=== PATIENT | female | born 2000 | race Hispanic/Latino ===

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

== ENCOUNTER 2022-01-19 09:50 | Emergency (ER) | payer OTHER ==
--- OUTSIDE RECORDS SUMMARY | 2022-01-19 09:57 | XMS REPORT | Continuity of Care Document ---
:[address] [facility] t Address [address] [place] [place] [address] Care Team Providers Name Role Phone Aron Quinones Primary Care Physician Alexei Gonzalez Attending Clinician ALEXEI ESCAMILLA Attending Clinician Unavailable Radha Cavazos MD Attending Clinician RADHA CAVAZOS Attending Clinician Unavailable Doctor Unassigned, [place] Attending Clinician Unavailable Pob, [facility] Attending Clinician Unavailable THIAGO HIDALGO Attending Clinician Unavailable Thiago Hidalgo PA-C Attending Clinician NATALIIA KIM Attending Clinician Unavailable Nurse, [facility] Attending Clinician Unavailable Nataliia Kim MD Attending Clinician 2, [facility] Attending Clinician Unavailable Kathia Stevenson Attending Clinician Pob1, [facility] Attending Clinician Unavailable Cleopatra Brock Attending Clinician CLEOPATRA VAUGHAN Attending Clinician Unavailable Lilliam Amanda MD Attending Clinician [phone] LILLIAM AMANDA Attending Clinician Unavailable Birgida Banda Attending Clinician Ultrasound, [facility] Attending Clinician Unavailable Garett GLYNN, Mirela Attending Clinician Yu [place] Attending Clinician Narciso SKY, Greer Attending Clinician Unavailable YU ORTEGA Attending Clinician Unavailable Lab, [facility] Attending Clinician Unavailable Paulie GLYNN, Catrina M Attending Clinician RADHA CAVAZOS Admitting Clinician Unavailable Radha Cavazos MD Admitting Clinician Nataliia Kim MD Admitting Clinician NATALIIA KIM Admitting Clinician Unavailable Lilliam Amanda MD Admitting Clinician [phone] LILLIAM AMANDA Admitting Clinician Unavailable THIAGO HIDALGO Admitting Clinician Unavailable Payers Payer Name Policy Type Policy Number Effective Date Expiration Date S ource Problems Condition Condition Condition Status Onset Resolution Last Treating Co mments Source Name Details Category Date Date Treatment Clinician Date Ganglion Ganglion Disease Active Overview: Un ada cyst of cyst of 9-23 [place] ity o f dorsum of dorsum of 00:00: [place] left wrist left wrist 00 note Me dical might be Branch different from the original. Added automatic ally from request for surgery [id number] Routine Routine Disease Active Univers 3-13 it y of [place] [facility] [place] Generalize Generalize Disease Active 2018-03 U oralers d anxiety d anxiety 1-15 ity of disorder disorder 00:00: [address] Branch Bipolar 1 Bipolar 1 Disease Active Uni vers disorder disorder 6-05 ity of 00:00: [address] Branch Depression Depression Disease Active U ion , , 3-19 ity of unspecif[place]specif[place] 00 Medical depression depression Br anch type type Allergies, Adverse Reactions, Alerts Allergy Allergy Status Severity Reaction(s) Onset Inactive Treating Comm ents Source Name Type Date Date Clinician NO KNOWN Drug Active Univers ALLERGIE Class ity of [facility] Social History Social Habit Start Date Stop Date Quantity Comments Source Exposure to 2021-12-30 2022-01-09 Not sure [facility] SARS-CoV-2 00:00:00 14:24:00 [facility] (event) Branch Alcohol intake 2022-01-09 2022-01-09 Current University of 00:00:00 00:00:00 non-drinker of [facility] alcohol (finding) [place] Tobacco Comment 2021-11-09 2021-11-09 denies smoke Univers ity of 00:00:00 00:00:[address] [facility] Tobacco use and 2021-11-09 2021-11-09 Smokeless tobacco Un iversity of exposure 00:00:00 00:00:[address] [facility] Sex Assigned At 2000 2002 Universit y of 00:00:00 00:00:00 [facility] Smoking Status Start Date Stop Date Source Never smoked tobacco [facility] [place] [facility] Medications Ordered Filled Start Stop Current Ordering Indication Dosage Frequency Signature Comments Components Source Medication Medication Date Date Medication? Clinician (SIG) Name Name lactated 2021-03 Yes 1000mL at 75 Univer s ringers IV 0-03 mL/hr, ity of infusion 21:00[place] 1[place] 00 IV Medical Infusion, Branch CONTINUOUS , Starting on Sun12/26/21 at 1600, Until Discontinu ed, Routine, PACU lactated 2021-03- 1000mL at 75 Unive rs ringers IV 0-03 10-04 mL/hr, ity of infusion 21:00: 00:20 1,000 mL, [place] 1,000 mL 00 :30 IV Medical Infusion, Branch CONTINUOUS , Starting on Sun12/26/21 at 1600, Until Sun12/26/21 at 1920, Routine, PACU FENTanyl PF 2021-03 Yes 25ug 25 mcg, Uni vers (SUBLIMAZE 0-03 Slow IV ity of (PF)) 20:55: Push, [place] injection 33 Q5MIN PRN, Medi rain 25 mcg 4 doses, Branch Starting on Sun12/26/21 at 1555, Until Discontinu ed, Routine, Pain (scale 4-6), PACU ondansetron 2021-03 Yes 4mg 4 mg, Slow Univers (ZOFRAN 0-03 IV Push, ity of (PF)) 20:55: PRN, 1 [place] injection 4 33 dose, Medical mg Starting Branch on Sun12/26/21 at 1555, Until Discontinu ed, Routine, Nausea and Vomiting (N/V), PACU FENTanyl PF 2021-03- No 25ug 25 mcg, Un ada (SUBLIMAZE 012-27 Slow IV ity o f (PF)) 20:55: 00:20 Push, [place] injection 33 :30 Q5MIN PRN, Medi rain 25 mcg 4 doses, Branch Starting on Sun12/26/21 at 1555, Until Sun12/26/21 at 1920, Routine, Pain (scale 4-6), PACU ondansetron 2021-03- No 4mg 4 mg, Slow Univers (ZOFRAN 012-27 IV Push, ity of (PF)) 20:55: 00:20 PRN, 1 [place] injection 4 33 :30 dose, Medical mg Starting Branch on Sun12/26/21 at 1555, Until Sun12/26/21 at 1920, Routine, Nausea and Vomiting (N/V), PACU bupivacaine 2021-03- No PRN, Unive rs (preserv 012-26 Starting ity of free) 20:31: 20:42 on [facility] (SENSORCAIN 00 :34 12/26/21 at [place] dical E MPF) 0.25 1531, Branch % (2.5 Until Mon mg/mL) 12/26/21 at injection 1542, Routine, Intra-op sodium 2021-03- No PRN, Univers chloride 012-26 Starting ity of 0.9 % 20:19: 20:42 on [facility] irrigation 00 :34 12/26/21 at Med ical solution 1519, Branch Until Sun12/26/21 at 1542, Intra-op BIOTIN ORAL 2021-03 Yes Take by Uni vers 0-03 mouth. ity of 17:20: [address] ZINC ORAL 2021-03 Yes Take by Unive rs 0-03 mouth. ity of 17:20: [address] BIOTIN ORAL 2021-03 Yes Take by Uni vers 0-03 mouth. ity of 17:20: [address] ZINC ORAL 2021-03 Yes Take by Unive rs 0-03 mouth. ity of 17:20: [address] BIOTIN ORAL 2021-03 Yes Take by Uni vers 0-03 mouth. ity of 17:20: [address] ZINC ORAL 2021-03 Yes Take by Unive rs 0-03 mouth. ity of 17:20: [address] BIOTIN ORAL 2021-03 Yes Take by Un ada 0-03 mouth. ity of 17:20: [address] ZINC ORAL 2021-03 Yes Take by Unive rs 0-03 mouth. ity of 17:20: [address] BIOTIN ORAL 2021-03 Yes Take by Uni vers 0-03 mouth. ity of 17:20: [address] ZINC ORAL 2021-03 Yes Take by Unive rs 0-03 mouth. ity of 17:20: [address] BIOTIN ORAL 2021-03 Yes Take by Uni vers 0-03 mouth. ity of 17:20: [address] ZINC ORAL 2021-03 Yes Take by Unive rs 0-03 mouth. ity of 17:20: [address] lactated 2021-03- No 1000mL at 42 Unive rs ringers IV 0-03 10-03 mL/hr, ity of infusion 16:45: 17:02 1,000 mL, [place] 1,000 mL 00 :00 IV Medical Infusion, Branch ONCE, 1 dose, On Sun12/26/21 at 1145, Routine, DSU Pre-op lactated 2021-03- No 1000mL at 42 Unive rs ringers IV 0-03 10-03 mL/hr, ity of infusion 16:45: 17:02 1,000 mL, [place] 1,000 mL 00 :00 IV Medical Infusion, Branch ONCE, 1 dose, On Sun12/26/21 at 1145, Routine, DSU Pre-op traMADoL 50 2021-03- Yes [id number] 50mg Take 1 Uni vers mg tablet 0-03 10-11 tablet by ity of 00:00: 04:59 mouth [place] 00 :00 every 6 Medical (six) Branch hours as needed for Pain (scale 4-6) or Pain (scale 7-10) for up to 7 days. Indication s: acute pain traMADoL 50 2021-03- Yes [id number] 50mg Take 1 Uni vers mg tablet 0-03 10-11 tablet by ity of 00:00: 04:59 mouth [place] 00 :00 every 6 Medical (six) Branch hours as needed for Pain (scale 4-6) or Pain (scale 7-10) for up to 7 days. Indication s: acute pain traMADoL 50 2021-03- Yes [id number] 50mg Take 1 Uni vers mg tablet 0-03 10-11 tablet by ity of 00:00: 04:59 mouth [place] 00 :00 every 6 Medical (six) Branch hours as needed for Pain (scale 4-6) or Pain (scale 7-10) for up to 7 days. Indication s: acute pain BIOTIN ORAL 0 Yes Take by Uni vers 9-28 mouth. ity of 16:21: [place] [address] Medical Branch ZINC ORAL 0 Yes Take by Unive rs 9-28 mouth. ity of 16:21: [place] [address] Medical Branch metroNIDAZO 2021-0 Yes [id number] 500mg Take 1 Univers LE 500 mg 8-17 tablet by ity o f tablet 00:00: mouth [place] 00 every 12 Medical (twelve) Branch hours. metroNIDAZO 2021-0 Yes [id number] 500mg Take 1 Univers LE 500 mg 8-17 tablet by ity o f tablet 00:00: mouth [place] 00 every 12 Medical (twelve) Branch hours. metroNIDAZO 2021-0 Yes [id number] 500mg Take 1 Univers LE 500 mg 8-17 tablet by ity o f tablet 00:00: mouth [place] 00 every 12 Medical (twelve) Branch hours. metroNIDAZO 2021-0 Yes [id number] 500mg Take 1 Univers LE 500 mg 8-17 tablet by ity o f tablet 00:00: mouth [place] 00 every 12 Medical (twelve) Branch hours. metroNIDAZO 2021-0 Yes [id number] 500mg Take 1 Univers LE 500 mg 8-17 tablet by ity o f tablet 00:00: mouth [place] 00 every 12 Medical (twelve) Branch hours. metroNIDAZO 2021-0 Yes [id number] 500mg Take 1 Univers LE 500 mg 8-17 tablet by ity o f tablet 00:00: mouth [place] 00 every 12 Medical (twelve) Branch hours. metroNIDAZO 2021-0 Yes [id number] 500mg Take 1 Univers LE 500 mg 8-17 tablet by ity o f tablet 00:00: mouth [place] 00 every 12 Medical (twelve) Branch hours. metroNIDAZO 2-0 Yes [id number] 500mg Take 1 Univers LE 500 mg 8-17 tablet by ity o f tablet 00:00: mouth [place] 00 every 12 Medical (twelve) Branch hours. metroNIDAZO 2021-0 Yes [id number] 500mg Take 1 Univers LE 500 mg 8-17 tablet by ity o f tablet 00:00: mouth [place] 00 every 12 Medical (twelve) Branch hours. metroNIDAZO 2021-0 Yes [id number] 500mg Take 1 Univers LE 500 mg 8-17 tablet by ity o f tablet 00:00: mouth [place] 00 every 12 Medical (twelve) Branch hours. metroNIDAZO 2021-0 Yes [id number] 500mg Take 1 Univers LE 500 mg 8-17 tablet by ity o f tablet 00:00: mouth [place] 00 every 12 Medical (twelve) Branch hours. metroNIDAZO 2021-0 Yes [id number] 500mg Take 1 Univers LE 500 mg 8-17 tablet by ity o f tablet 00:00: mouth [place] 00 every 12 Medical (twelve) Branch hours. metroNIDAZO 2021-0 2022- No [id number] 500mg Take 1 Univers LE 500 mg 6-23 08-17 tablet by ity of tablet 00:00: 00:00 mouth [place] 00 :00 every 12 Medical (twelve) Branch hours. metroNIDAZO 2021-0 2022- No [id number] 500mg Take 1 Univers LE 500 mg 6-23 08-17 tablet by ity of tablet 00:00: 00:00 mouth [place] 00 :00 every 12 Medical (twelve) Branch hours. norgestimat 2021-0 Yes [id number] 1{tbl} Take 1 Univers e-ethinyl 5-16 tablet by ity o f estradioL 00:00: mouth [place] (ESTARYLLA) 00 daily. Medica l 0.25-35 Branch mg-mcg per tablet norgestimat 2021-0 Yes [id number] 1{tbl} Take 1 Univers e-ethinyl 5-16 tablet by ity o f estradioL 00:00: mouth [place] (ESTARYLLA) 00 daily. Medica l 0.25-35 Branch mg-mcg per tablet norgestimat 2021-0 Yes [id number] 1{tbl} Take 1 Univers e-ethinyl 5-16 tablet by ity o f estradioL 00:00: mouth [place] (ESTARYLLA) 00 daily. Medica l 0.25-35 Branch mg-mcg per tablet norgestimat Yes [id number] 1{tbl} Take 1 Univers e-ethinyl 5-16 tablet by ity o f estradioL 00:00: mouth [place] (ESTARYLLA) 00 daily. Medica l 0.25-35 Branch mg-mcg per tablet norgestimat Yes [id number] 1{tbl} Take 1 Univers e-ethinyl 5-16 tablet by ity o f estradioL 00:00: mouth [place] (ESTARYLLA) 00 daily. Medica l 0.25-35 Branch mg-mcg per tablet norgestimat Yes [id number] 1{tbl} Take 1 Univers e-ethinyl 5-16 tablet by ity o f estradioL 00:00: mouth [place] (ESTARYLLA) 00 daily. Medica l 0.25-35 Branch mg-mcg per tablet norgestimat 2021- Yes [id number] 1{tbl} Take 1 Univers e-ethinyl 5-16 tablet by ity o f estradioL 00:00: mouth [place] (ESTARYLLA) 00 daily. Medica l 0.25-35 Branch mg-mcg per tablet norgestimat Yes [id number] 1{tbl} Take 1 Univers e-ethinyl 5-16 tablet by ity o f estradioL 00:00: mouth [place] (ESTARYLLA) 00 daily. Medica l 0.25-35 Branch mg-mcg per tablet norgestimat 2021-0 Yes [id number] 1{tbl} Take 1 Univers e-ethinyl 5-16 tablet by ity o f estradioL 00:00: mouth [place] (ESTARYLLA) 00 daily. Medica l 0.25-35 Branch mg-mcg per tablet norgestimat Yes [id number] 1{tbl} Take 1 Univers e-ethinyl 5-16 tablet by ity o f estradioL 00:00: mouth [place] (ESTARYLLA) 00 daily. Medica l 0.25-35 Branch mg-mcg per tablet norgestimat 2022-0 Yes [id number] 1{tbl} Take 1 Univers e-ethinyl 5-16 tablet by ity o f estradioL 00:00: mouth [place] (ESTARYLLA) 00 daily. Medica l 0.25-35 Branch mg-mcg per tablet norgestimat 2021-0 Yes [id number] 1{tbl} Take 1 Univers e-ethinyl 5-16 tablet by ity o f estradioL 00:00: mouth [place] (ESTARYLLA) 00 daily. Medica l 0.25-35 Branch mg-mcg per tablet metroNIDAZO 2-0 202- No [id number] 500mg Take 1 Univers LE 500 mg 4-26 08-17 tablet by ity of tablet 00:00: 00:00 mouth [place] 00 :00 every 12 Medical (twelve) Branch hours. metroNIDAZO 2-0 2021- No [id number] 500mg Take 1 Univers LE 500 mg 4-26 -17 tablet by ity of tablet 00:00: 00:00 mouth [place] 00 :00 every 12 Medical (twelve) Branch hours. BIOTIN ORAL 2022-0 Yes Take by Uni vers 4-25 mouth. ity of 08:19: [address] ZINC ORAL 2022-0 Yes Take by Unive rs 4-25 mouth. ity of 08:19: [address] BIOTIN ORAL 2022-0 Yes Take by Uni vers 4-25 mouth. ity of 08:19: [address] ZINC ORAL 2022-0 Yes Take by Unive rs 4-25 mouth. ity of 08:19: [address] BIOTIN ORAL 2022-0 Yes Take by Uni vers 4-25 mouth. ity of 08:19: [address] ZINC ORAL 2022-0 Yes Take by Unive rs 4-25 mouth. ity of 08:19: [address] BIOTIN ORAL 2022-0 Yes Take by Uni vers 4-25 mouth. ity of 08:19: [address] ZINC ORAL 2022-0 Yes Take by Unive rs 4-25 mouth. ity of 08:19: [address] BIOTIN ORAL 2022-0 Yes Take by Uni vers 4-25 mouth. ity of 08:19: [address] ZINC ORAL 2022-0 Yes Take by Unive rs 4-25 mouth. ity of 08:19: [place] 34 Medical Branch metroNIDAZO 2022-0 2- No [id number] 500mg Take 1 Univers LE 500 mg 3-25 08-17 tablet by ity of tablet 00:00: 00:00 mouth [place] 00 :00 every 12 Medical (twelve) Branch hours. metroNIDAZO 2022-0 2022- No [id number] 500mg Take 1 Univers LE 500 mg 3-25 08-17 tablet by ity of tablet 00:00: 00:00 mouth [place] 00 :00 every 12 Medical (twelve) Branch hours. clotrimazol 2020-0 Yes [id number] Apply to Univers e-betametha 9-29 area(s) 2 ity of sone cream 00:00: (two) [place] 00 times Medical daily. Branch clotrimazol 2020-0 Yes [id number] Apply to Univers e-betametha 9-29 area(s) 2 ity of sone cream 00:00: (two) [place] 00 times Medical daily. Branch clotrimazol 2020-0 Yes [id number] Apply to Univers e-betametha 9-29 area(s) 2 ity of sone cream 00:00: (two) [place] 00 times Medical daily. Branch clotrimazol 2020-0 Yes [id number] Apply to Univers e-betametha 9-29 area(s) 2 ity of sone cream 00:00: (two) [place] 00 times Medical daily. Branch clotrimazol 2020-0 Yes [id number] Apply to Univers e-betametha 9-29 area(s) 2 ity of sone cream 00:00: (two) [place] 00 times Medical daily. Branch clotrimazol 2020-0 Yes [id number] Apply to Univers e-betametha 9-29 area(s) 2 ity of sone cream 00:00: (two) [place] 00 times Medical daily. Branch clotrimazol 2020-0 Yes [id number] Apply to Univers e-betametha 9-29 area(s) 2 ity of sone cream 00:00: (two) [place] 00 times Medical daily. Branch clotrimazol 2020-0 Yes [id number] Apply to Univers e-betametha 9-29 area(s) 2 ity of sone cream 00:00: (two) [place] 00 times Medical daily. Branch clotrimazol 2020-0 Yes [id number] Apply to Univers e-betametha 9-29 area(s) 2 ity of sone cream 00:00: (two) [place] 00 times Medical daily. Branch clotrimazol 2020-0 Yes [id number] Apply to Univers e-betametha 9-29 area(s) 2 ity of sone cream 00:00: (two) [place] 00 times Medical daily. Branch clotrimazol 2020-0 Yes [id number] Apply to Univers e-betametha 9-29 area(s) 2 ity of sone cream 00:00: (two) [place] 00 times Medical daily. Branch clotrimazol 2020-0 Yes [id number] Apply to Univers e-betametha 9-29 area(s) 2 ity of sone cream 00:00: (two) [place] 00 times Medical daily. Branch 2020-0 Yes [id number] 1{tbl} Take 1 Univers vitamin 1-31 102 tablet by ity of w/FA tablet 00:00: mouth [place] 00 daily. Medical Branch docusate 2020-0 Yes [id number] 240mg Take 1 Univers calcium 240 1-31 102 capsule by it y of mg capsule 00:00: mouth once [place] 00 daily as Medical needed for Branch Constipati on. ferrous 2020-0 Yes [id number] 325mg Take 1 Univers sulfate 325 1-31 102 tablet by ity of mg (65 mg 00:00: mouth 2 [place] iron) 00 (two) Medical tablet times Branch daily. ibuprofen 2020-0 Yes [id number] 600mg Take 1 Univers 600 mg 1-31 102 tablet by ity of tablet 00:00: mouth [place] 00 every 6 Medical (six) Branch hours as needed (Pain). Take with food or milk. 2020-0 Yes [id number] 1{tbl} Take 1 Univers vitamin 1-31 102 tablet by ity of w/FA tablet 00:00: mouth [place] 00 daily. Medical Branch docusate 2020-0 Yes [id number] 240mg Take 1 Univers calcium 240 1-31 102 capsule by it y of mg capsule 00:00: mouth once [place] 00 daily as Medical needed for Branch Constipati on. ferrous 2020-0 Yes [id number] 325mg Take 1 Univers sulfate 325 1-31 102 tablet by ity of mg (65 mg 00:00: mouth 2 [place] iron) 00 (two) Medical tablet times Branch daily. ibuprofen 2020-0 Yes [id number] 600mg Take 1 Univers 600 mg 1-31 102 tablet by ity of tablet 00:00: mouth [place] 00 every 6 Medical (six) Branch hours as needed (Pain). Take with food or milk. 2020-0 Yes [id number] 1{tbl} Take 1 Univers vitamin 1-31 102 tablet by ity of w/FA tablet 00:00: mouth [place] 00 daily. Medical Branch docusate 2020-0 Yes [id number] 240mg Take 1 Univers calcium 240 1-31 102 capsule by it y of mg capsule 00:00: mouth once [place] 00 daily as Medical needed for Branch Constipati on. ferrous 2020-0 Yes [id number] 325mg Take 1 Univers sulfate 325 1-31 102 tablet by ity of mg (65 mg 00:00: mouth 2 [place] iron) 00 (two) Medical tablet times Branch daily. ibuprofen 2020-0 Yes [id number] 600mg Take 1 Univers 600 mg 1-31 102 tablet by ity of tablet 00:00: mouth [place] 00 every 6 Medical (six) Branch hours as needed (Pain). Take with food or milk. 2020-0 Yes [id number] 1{tbl} Take 1 Univers vitamin 1-31 102 tablet by ity of w/FA tablet 00:00: mouth [place] 00 daily. Medical Branch docusate 2020-0 Yes [id number] 240mg Take 1 Univers calcium 240 1-31 102 capsule by it y of mg capsule 00:00: mouth once [place] 00 daily as Medical needed for Branch Constipati on. ferrous 2020-0 Yes [id number] 325mg Take 1 Univers sulfate 325 1-31 102 tablet by ity of mg (65 mg 00:00: mouth 2 [place] iron) 00 (two) Medical tablet times Branch daily. ibuprofen 2020-0 Yes [id number] 600mg Take 1 Univers 600 mg 1-31 102 tablet by ity of tablet 00:00: mouth [place] 00 every 6 Medical (six) Branch hours as needed (Pain). Take with food or milk. 2020-0 Yes [id number] 1{tbl} Take 1 Univers vitamin 1-31 102 tablet by ity of w/FA tablet 00:00: mouth [place] 00 daily. Medical Branch docusate 2020-0 Yes [id number] 240mg Take 1 Univers calcium 240 1-31 102 capsule by it y of mg capsule 00:00: mouth once [place] 00 daily as Medical needed for Branch Constipati on. ferrous 2020-0 Yes [id number] 325mg Take 1 Univers sulfate 325 1-31 102 tablet by ity of mg (65 mg 00:00: mouth 2 [place] iron) 00 (two) Medical tablet times Branch daily. ibuprofen 2020-0 Yes [id number] 600mg Take 1 Univers 600 mg 1-31 102 tablet by ity of tablet 00:00: mouth [place] 00 every 6 Medical (six) Branch hours as needed (Pain). Take with food or milk. 2020-0 Yes [id number] 1{tbl} Take 1 Univers vitamin 1-31 102 tablet by ity of w/FA tablet 00:00: mouth [place] 00 daily. Medical Branch docusate 2020-0 Yes [id number] 240mg Take 1 Univers calcium 240 1-31 102 capsule by it y of mg capsule 00:00: mouth once [place] 00 daily as Medical needed for Branch Constipati on. ferrous 2020-0 Yes [id number] 325mg Take 1 Univers sulfate 325 1-31 102 tablet by ity of mg (65 mg 00:00: mouth 2 [place] iron) 00 (two) Medical tablet times Branch daily. ibuprofen 2020-0 Yes [id number] 600mg Take 1 Univers 600 mg 1-31 102 tablet by ity of tablet 00:00: mouth [place] 00 every 6 Medical (six) Branch hours as needed (Pain). Take with food or milk. 2020-0 Yes [id number] 1{tbl} Take 1 Univers vitamin 1-31 102 tablet by ity of w/FA tablet 00:00: mouth [place] 00 daily. Medical Branch docusate 2020-0 Yes [id number] 240mg Take 1 Univers calcium 240 1-31 102 capsule by it y of mg capsule 00:00: mouth once [place] 00 daily as Medical needed for Branch Constipati on. ferrous 2020-0 Yes [id number] 325mg Take 1 Univers sulfate 325 1-31 102 tablet by ity of mg (65 mg 00:00: mouth 2 [place] iron) 00 (two) Medical tablet times Branch daily. ibuprofen 2020-0 Yes [id number] 600mg Take 1 Univers 600 mg 1-31 102 tablet by ity of tablet 00:00: mouth [place] 00 every 6 Medical (six) Branch hours as needed (Pain). Take with food or milk. 2020-0 Yes [id number] 1{tbl} Take 1 Univers vitamin 1-31 102 tablet by ity of w/FA tablet 00:00: mouth [place] 00 daily. Medical Branch docusate 2020-0 Yes [id number] 240mg Take 1 Univers calcium 240 1-31 102 capsule by it y of mg capsule 00:00: mouth once [place] 00 daily as Medical needed for Branch Constipati on. ferrous 2020-0 Yes [id number] 325mg Take 1 Univers sulfate 325 1-31 102 tablet by ity of mg (65 mg 00:00: mouth 2 [place] iron) 00 (two) Medical tablet times Branch daily. ibuprofen 2020-0 Yes [id number] 600mg Take 1 Univers 600 mg 1-31 102 tablet by ity of tablet 00:00: mouth [place] 00 every 6 Medical (six) Branch hours as needed (Pain). Take with food or milk. 2020-0 Yes [id number] 1{tbl} Take 1 Univers vitamin 1-31 102 tablet by ity of w/FA tablet 00:00: mouth [place] 00 daily. Medical Branch docusate 2020-0 Yes [id number] 240mg Take 1 Univers calcium 240 1-31 102 capsule by it y of mg capsule 00:00: mouth once [place] 00 daily as Medical needed for Branch Constipati on. ferrous 2020-0 Yes [id number] 325mg Take 1 Univers sulfate 325 1-31 102 tablet by ity of mg (65 mg 00:00: mouth 2 [place] iron) 00 (two) Medical tablet times Branch daily. ibuprofen 2020-0 Yes [id number] 600mg Take 1 Univers 600 mg 1-31 102 tablet by ity of tablet 00:00: mouth [place] 00 every 6 Medical (six) Branch hours as needed (Pain). Take with food or milk. 2020-0 Yes [id number] 1{tbl} Take 1 Univers vitamin 1-31 102 tablet by ity of w/FA tablet 00:00: mouth [place] 00 daily. Medical Branch docusate 2020-0 Yes [id number] 240mg Take 1 Univers calcium 240 1-31 102 capsule by it y of mg capsule 00:00: mouth once [place] 00 daily as Medical needed for Branch Constipati on. ferrous 2020-0 Yes [id number] 325mg Take 1 Univers sulfate 325 1-31 102 tablet by ity of mg (65 mg 00:00: mouth 2 [place] iron) 00 (two) Medical tablet times Branch daily. ibuprofen 2020-0 Yes [id number] 600mg Take 1 Univers 600 mg 1-31 102 tablet by ity of tablet 00:00: mouth [place] 00 every 6 Medical (six) Branch hours as needed (Pain). Take with food or milk. 2020-0 Yes [id number] 1{tbl} Take 1 Univers vitamin 1-31 102 tablet by ity of w/FA tablet 00:00: mouth [place] 00 daily. Medical Branch docusate 2020-0 Yes [id number] 240mg Take 1 Univers calcium 240 1-31 102 capsule by it y of mg capsule 00:00: mouth once [place] 00 daily as Medical needed for Branch Constipati on. ferrous 2020-0 Yes [id number] 325mg Take 1 Univers sulfate 325 1-31 102 tablet by ity of mg (65 mg 00:00: mouth 2 [place] iron) 00 (two) Medical tablet times Branch daily. ibuprofen 2020-0 Yes [id number] 600mg Take 1 Univers 600 mg 1-31 102 tablet by ity of tablet 00:00: mouth [place] 00 every 6 Medical (six) Branch hours as needed (Pain). Take with food or milk. 2020-0 Yes [id number] 1{tbl} Take 1 Univers vitamin 1-31 102 tablet by ity of w/FA tablet 00:00: mouth [place] 00 daily. Medical Branch docusate 2020-0 Yes [id number] 240mg Take 1 Univers calcium 240 1-31 102 capsule by it y of mg capsule 00:00: mouth once [place] 00 daily as Medical needed for Branch Constipati on. ferrous 2020-0 Yes [id number] 325mg Take 1 Univers sulfate 325 1-31 102 tablet by ity of mg (65 mg 00:00: mouth 2 [place] iron) 00 (two) Medical tablet times Branch daily. ibuprofen 2020-0 Yes [id number] 600mg Take 1 Univers 600 mg 1-31 102 tablet by ity of tablet 00:00: mouth [place] 00 every 6 Medical (six) Branch hours as needed (Pain). Take with food or milk. Vital Signs Vital Name Observation Time Observation Value Comments Source Body height 2022-01-09 19:47:00 160 cm [facility] [place] [facility] Body weight 2022-01-09 19:47:00 58.514 kg [facility] [place] [facility] BMI 2022-01-09 19:47:00 22.85 kg/m2 [facility] [place] [facility] Systolic blood 2021-12-26 21:28:00 146 mm[Hg] [facility] [place] [facility] Diastolic blood 2021-12-26 21:28:00 70 mm[Hg] [facility]ive rsity [facility] [place] [facility] Heart rate 2021-12-26 21:28:00 66 /min [facility] [place] [facility] Respiratory rate 2021-12-26 21:28:00 20 /min [facility] [place] [facility] Oxygen saturation in 2021-12-26 21:28:00 100 /min [facility] of Arterial blood by [place] [employer] rain Pulse oximetry Branch Body temperature 2021-12-26 20:43:00 36.33 Mariel [facility] [place] [facility] Body height 2021-12-19 16:28:00 160 cm [facility] [place] [facility] Body weight 2021-12-19 16:28:00 56.7 kg [facility] [place] [facility] BMI 2021-12-19 16:28:00 22.15 kg/m2 [facility] [place] [facility] Heart rate 2021-12-26 21:07:00 66 /min [facility] [place] [facility] Respiratory rate 2021-12-26 21:07:00 20 /min [facility] [place] [facility] Oxygen saturation in 2021-12-26 21:07:00 100 /min [facility] Arterial blood by [place] [employer] rain Pulse oximetry Branch Systolic blood 2021-12-26 21:03:00 131 mm[Hg] [facility] [place] [facility] Diastolic blood 2021-12-26 21:03:00 69 mm[Hg] [facility] [place] [facility] Body temperature 2021-12-26 20:43:00 36.33 Mariel [facility] [place] [facility] Body height 2021-12-19 16:28:00 160 cm [facility] [place] [facility] Body weight 2021-12-19 16:28:00 56.7 kg Universi [facility] BMI 2021-12-19 16:28:00 22.15 kg/m2 [facility] Body height 2021-12-15 18:01:00 160 cm [facility] Systolic blood 2021-11-09 15:45:00 112 mm[Hg] Univer sity of pressure [facility] Diastolic blood 2021-11-09 15:45:00 71 mm[Hg] Unive rsity of pressure [facility] Heart rate 2021-11-09 15:45:00 86 /min [facility] Body temperature 2021-11-09 15:45:00 37.06 Mariel [facility] Respiratory rate 2021-11-09 15:45:00 18 /min [facility] Body height 2021-11-09 15:45:00 160 cm [facility] Body weight 2021-11-09 15:45:00 56.7 kg [facility] BMI 2021-11-09 15:45:00 22.14 kg/m2 [facility] Procedures Procedure Date / Time Performed Performing Clinician Sourc e GANGLION EXCISION 2021-12-26 19:47:00 Radha Cavazos [facility] POCT TEST 2021-12-26 16:57:00 Toy Sinclair [facility] POCT TEST 2021-12-26 16:57:00 Toy Sinclair [facility] DAY SURGERY - ADC 2021-12-26 05:01:00 Doctor Unassigned, No [facility] Branch CONSENT/REFUSAL FOR 2021-12-23 15:24:42 Doctor Unassigned, No [facility] [place] DI[facility] AND Name Medical Branch TREATMENT CONSENT/REFUSAL FOR 2021-12-23 15:24:42 Doctor Unassigned, No [facility] Name [facility] Branch TREATMENT ASSIGNMENT OF BENEFITS 2021-12-23 15:24:19 Doctor Unassigned, No [facility] Medical Branch ASSIGNMENT OF BENEFITS 2021-12-23 15:24:19 Doctor Unassigned, No [facility] EXTERNAL PROVIDER 2021-12-20 05:01:00 Doctor Unassigned, No Univ ersity [facility] RECORDS Name Medical Branch EXTERNAL PROVIDER 2021-12-20 05:01:00 Doctor Unassigned, No [facility] REC[facility]DS Name [facility] Encounters Start End Encounter Admission Attending Care Care Encounter Source Date/Time Date/Time Type Type Clinicians Facility Department ID 2022-01-09 2022-01-09 Office [facility] [id number] Univers 14:15:00 14:30:00 Visit Alexei ABRAHAM 350.1.13.10 it y of [place] 4.2.7.2.686 Esa as NACHO?BLEA [phone] Nc abhayvannesa [address] OFFICE [facility] 2022-01-09 2022-01-09 [facility] [id number] Univers 14:15:00 14:15:00 ALEXEI lowery [facility] 2022-01-09 2022-01-09 Letter [facility] [id number] Univers 00:00:00 00:00:00 (Out) Radha Lee RUN 350.1.13.10 it y of [place] 4.2.7.2.686 Esa as NACHO?BLEA [id number] Nc abhay[address] OFFICE [facility] 2021-12-26 2021-12-26 Out[facility] SOR [id number] Univers 11:44:00 16:28:00 RADHA itedvin [facility] 2021-12-26 2021-12-26 [facility] 1.2.840.114 [id number] Univers 11:44:00 16:28:00 Encounter Radha SANDOVAL 350.1.13.10 ity of [place] [facility] 4.2.7.2.686 [place] SURGICAL [phone] [facility] [address] [place] 2021-12-26 2021-12-26 Surgery [facility] 1.2.846.497 [id number] Univers 14:55:00 16:07:00 Radha SANDOVAL 350.1.13.10 i ty of [place] [facility] 4.2.7.2.[place]ICAL [id number] [facility] [address] [place] 2021-12-26 2021-12-26 Orders Doctor MARCOS 1.2.840.114 [id number] Univers 00:00:00 00:00:00 Only Unassigned, SUSHANT 350.1.13.10 [facility] 4.2.7.2.686 Esa as [phone] [address] 2021-12-23 2021-12-23 Features Editor Cassidy, [facility] Main [facility] 1.2.8 40.114 [id number] Univers 09:30:00 09:45:00 Visit Dirk Radha Jesus JAIME 350.1.13.10 ity of [place] 4.2.7.2.686 [place] TAWNYA [id number] Nc dicvannesa [address] 2021-12-23 2021-12-23 [facility] [id number] Univers 09:30:00 09:30:00 [facility] 2021-12-16 2021-12-16 Prep For [facility] 1.2.840.114 [id number] Univers 00:00:00 00:00:00 Surgery Radha Lee HEALTH 350.1.13.10 it y of [place] 4.2.7.2.686 Esa as NACHO?BLEA [phone] Nc dicvannesa [facility] [address] [facility] OFFICE [facility] 2021-12-15 2021-12-15 Outpatient R FRANCINE [facility] [id number] Univers 13:15:00 14:01:10 ALEXEI ity [facility] 2021-12-15 2021-12-15 Office [facility] 1.2.840.114 [id number] Univers 13:15:00 14:01:10 Visit Alexeishani ABRAHAM 350.1.13.10 it y of [place] 4.2.7.2.686 Esa as NACHO?BLEA [phone] Nc dicvannesa [address] OFFICE [facility] 2021-11-09 2021-11-09 Outpatient R ROCKY [facility] [id number] Univers 10:30:00 11:36:16 THIAGO lowery [facility] 2021-11-09 2021-11-09 Office [facility] [id number] Univers 10:30:00 11:36:16 Visit Thiago SANDOVAL 350.1.13.10 i ty of [place] 4.2.7.2.686 [place] PROFESSIO [phone] [address] 2021-11-09 2021-11-09 Outpatient R ROCKY [facility] [id number] Univers 10:30:00 10:30:00 THIAGO lowery [facility] 2021-11-09 2021-11-09 Orders Doctor MARCOS 1.2.840.114 [id number] Univers 00:00:00 00:00:00 Only Unassigned, SUSHANT 350.1.13.10 ity of [facility] 4.2.7.2.686 Esa as [phone] [address] 2021-09-15 2021-09-15 Case [facility] 1.2.211.266 [id number] Univers 00:00:00 00:00:00 Management Thiago SANDOVAL 350.1.13.10 ity of [place] 4.2.7.2.686 [place] PROFESS[place] [phone] [address] 2021-09-14 2021-09-14 Office [facility] [id number] [id number] Univers 10:30:00 10:51:47 Visit Thiago SANDOVAL 350.1.13.10 i ty of [place] 4.2.7.2.[place] [phone] [address] 2021-09-14 2021-09-14 Outpatient Benjamin HIDALGO [facility] [id number] Univers 10:30:00 10:51:47 THIAGO lowery [facility] 2021-09-14 2021-09-14 Outpatient R ROCKY [facility] [id number] Univers 10:30:00 10:30:00 THIAGO lowery [facility] 2021-08-08 2021-08-08 Outpatient Benjamin HIDALGO [facility] [id number] Univers 09:00:00 09:32:11 THIAGO lowery [facility] 2021-08-08 2021-08-08 Office [facility] [id number] Univers 09:00:00 09:32:11 Visit Thiago SANDOVAL 350.1.13.10 i ty of [place] [facility] 4.2.7.2.686 [place] [phone] Nc dical NAL [address] [place] [address] 2021-07-26 2021-07-26 Refill [facility] 1.2.760.952 [id number] Univers 00:00:00 00:00:00 Thiago FERMINKENYETTA 350.1.13.10 i ty of [place] 4.2.7.2.[place] PROFESS[place] [phone] Nc dical NAL [address] [place] [address] 2021-07-19 2021-07-19 Case [facility] 1.2.322.019 [id number] Univers 00:00:00 00:00:00 Management Thiago JENYKENYETTA 350.1.13.10 ity of [place] [facility] 4.2.7.2.686 [place] [phone] Nc dical NAL [address] [place] [address] 2021-07-18 2021-07-18 Office [facility] 1.2.528.279 [id number] Univers 08:00:00 08:41:06 Visit Thiago SANDOVAL 350.1.13.10 i ty of [place] 4.2.7.2.686 [place] [id number] Nc dical [address] 2021-07-18 2021-07-18 Outpatient R ROCKY [facility] [id number] Univers 08:00:00 08:41:06 THIAGO lowery [facility] 2021-07-18 2021-07-18 Outpatient R ROCKY [facility] [id number] Univers 08:00:00 08:00:00 THIAGO lowery [facility] 2021-07-18 2021-07-18 Letter [facility] 1.2.188.930 [id number] Univers 00:00:00 00:00:00 (Out) Thiago SANDOVAL 350.1.13.10 i ty of [place] [facility] 4.2.7.2.686 [place]ESS[place] [phone] Nc dical NAL [address] [place] [address] 2021-06-17 2021-06-17 Case ANGÉLICA Hidalgo 1.2.742.713 [id number] Univers 00:00:00 00:00:00 Management Thiago PEDIATRIC 350.1.13.10 [place]y [place]2.7.2.686 [place] ADULT [id number] [address] [facility] 2021-06-16 2021-06-16 Outpatient R NATALIIA KIM [facility] [id number] Univers 14:30:00 15:30:[address] [facility] 2021-06-16 2021-06-16 Nurse Nurse, [facility] 1.2.840.114 [id number] Univers 14:30:00 15:30:59 Visit Nataliia Kim 350.1.13.10 ity of [place] [facility] 4.2.7.2.686 [place] PROFESS[place] [phone] Nc dical NAL [address] [place] [address] 2021-06-16 2021-06-16 Outpatient R NATALIIA KIM [facility] [id number] Univers 14:30:00 14:30:[address] [facility] 2021-06-15 2021-06-15 Telephone Rocky [facility] 1.2.840.114 [id number] Univers 00:00:00 00:00:00 Thiago SANDOVAL 350.1.13.10 i ty of [place] [facility] 4.2.7.2.686 [place] [id number] Nc dical NAL [address] [place] [address] 2021-06-14 2021-06-14 Office Rocky [facility] 1.2.656.991 [id number] Univers 10:00:00 10:30:00 Visit Thiago SANDOVAL 350.1.13.10 i ty of [place] [facility] 4.2.7.2.686 [place] PROF[place] [phone] Nc dical NAL [address] [place] [address] 2021-06-14 2021-06-14 Outpatient R ROCKY [facility] [id number] Univers 10:00:00 10:00:00 THIAGO lowery [facility] 2021-06-14 2021-06-14 Outpatient R JOSE ENRIQUEKENNETH, [facility] [id number] Univers 10:00:00 10:00:00 THIAGO lowery [facility] 2021-06-13 2021-06-13 Patient Rocky [facility] 1.2.208.615 [id number] Univers 00:00:00 00:00:00 Secure Msg Thiago [place] 350.1.13.10 ity of [place] 4.2.7.2.686 [place] PROF[place] [phone] Nc dical NAL [address] [place] [address] 2021-06-13 2021-06-13 Patient Rocky [facility] [id number] Univers 00:00:00 00:00:00 Secure Msg Thiago [place] 350.1.13.10 ity of [place] 4.2.7.2.686 [place] [phone] Nc dical NAL [address] [place] [address] 2021-06-13 2021-06-13 Patient Rocky [facility] 1.2.591.432 [id number] Univers 00:00:00 00:00:00 Secure Msg Thiago [place] 350.1.13.10 ity of [place] 4.2.7.2.686 [place] [phone] Nc dical NAL [address] [facility] 2021-05-10 2021-05-10 Features Editor Curry [facility] Main [facility] 1.2.8 40.114 [id number] Univers 11:30:00 11:45:00 Visit Nataliia Kim 350.1.13.10 ity of [place] 4.2.7.2.686 [place] PROFESSIO [phone] Nc dical NAL [address] [facility] 2021-05-10 2021-05-10 Outpatient R ROCKY [facility] [id number] Univers 11:30:00 11:30:00 THIAGO lowery [facility] 2021-05-10 2021-05-10 Outpatient R ROCKY [facility] [id number] Univers 11:30:00 11:30:00 THIAGO itedvin [facility] 2021-05-10 2021-05-10 Office Thiago Hidalgo [facility] 1.2.840.11 [id number] Univers 10:30:00 11:09:30 Visit Nataliia Kim 350.1.13.10 ity of [place] [facility] 4.2.7.2.686 [place] PROFESS[place] [id number] Nc dical NAL [address] [place] [address] 2021-05-10 2021-05-10 Orders Doctor MARCOS 1.2.840.114 [id number] Univers 00:00:00 00:00:00 Only Unassigned, SUSHANT 350.1.13.10 ity of [place] [facility] 4.2.7.2.686 Esa as [phone] [address] 2021-05-10 2021-05-10 Telephone Rocky ILNEHEMIAS 1.2.840.114 [id number] Univers 00:00:00 00:00:00 Thiago SANDOVAL 350.1.13.10 i ty of [place] 4.2.7.2.686 [place] PROF[place] [id number] Nc dical NAL [address] [place] [address] 2021-04-28 2021-04-28 Outpatient R ROCKY [facility] [id number] Univers 14:00:00 14:46:54 THIAGO sebastián [facility] 2021-04-28 2021-04-28 Office Rocky [facility] 1.2.953.316 [id number] Univers 14:00:00 14:46:54 Visit Thiago SANDOVAL 350.1.13.10 i ty of [place] 4.2.7.2.686 [place] [id number] Nc dical NAL [address] [place] [address] 2021-04-21 2021-04-21 Telephone Nataliia Kim [facility] 1.2.840.114 [id number] Univers 00:00:00 00:00:00 Alejandro SANDOVAL 350.1.13.10 i ty of [place] 4.2.7.2.686 [place] PROF[place] [phone] Nc dical NAL [address] [facility] 2021-02-11 2021-02-11 Telephone Rocky [facility] 1.2.840.114 [id number] Univers 00:00:00 00:00:00 Thiago SANDOVAL 350.1.13.10 i ty of [facility] [facility] 4.2.7.2.686 [place] PROFESS[place] [phone] Nc dical [facility] [address] [facility] 2021-02-08 2021-02-08 Orders Doctor MARCOS 1.2.840.114 [id number] Univers 00:00:00 00:00:00 Only Unassigned, SUSHANT 350.1.13.10 [facility] 4.2.7.2.686 Esa as [phone] [address] 2021-02-07 2021-02-07 Features Editor 2, Adc Lab [facility] 1.2.840.114 [id number] Univers 14:10:57 14:17:00 Visit Thiago Hidalgo 350.1.13.10 ity of [place] 4.2.7.2.[place] PROFESS[place] [phone] [facility] [address] [facility] 2021-02-07 2021-02-07 Outpatient R ROCKY [facility] [id number] Univers 14:15:00 14:15:00 [facility] 2021-02-07 2021-02-07 Outpatient Benjamin HIDALGO [facility] [id number] Univers 13:30:00 14:06:13 [facility] 2021-02-07 2021-02-07 [facility] 1.2.259.186 [id number] Univers 13:25:29 14:06:13 Visit Thiago SANDOVAL 350.1.13.10 i ty of [place] 4.2.7.2.[place] PROFESS[place] [id number] Nc dical [facility] [address] [facility] 2021-02-07 2021-02-07 Outpatient R ROCKY [facility] [id number] Univers 13:30:00 13:30:00 [facility] 2020-12-22 2020-12-22 Outpatient R ROCKY [facility] [id number] Univers 09:00:00 09:00:[address] [facility] 2020-11-05 2020-11-05 Outpatient R NATALIIA KIM [facility] [id number] Univers 10:30:00 10:44:[address] [facility] 2020-11-05 2020-11-05 [facility] [id number] Univers 10:30:00 10:44:[address] [facility] 2020-11-05 2020-11-05 Outpatient R JUDY NATALIIA [facility] [id number] Univers 10:30:00 10:44:[address] [facility] 2020-11-05 2020-11-05 Outpatient Benjamin JUDY NATALIIA [facility] [id number] Univers 10:30:00 10:44:37 ity [facility] 2020-11-05 2020-11-05 Nurse Nurse, [facility] 1.2.840.114 [id number] Univers 10:24:51 10:44:37 Visit Nataliia Kim 350.1.13.10 ity [facility] 4.2.7.2.[place] Profess[place] [phone] Nc dical nal 134 [facility] 2020-11-05 2020-11-05 Orders Doctor MARCOS 1.2.840.114 [id number] Univers 00:00:00 00:00:00 Only Unassigned, SUSHANT 350.1.13.10 ity of [place] [facility] 4.2.7.2.686 Esa as [phone] [address] 2020-11-04 2020-11-04 Marcell [facility] 1.2.515.686 [id number] Univers 00:00:00 00:00:00 Alexei Sandoval 350.1.13.10 [place] of [place].2.[place] Profess[place] [id number] Nc dical nal [address] [facility] 2020-10-27 2020-10-27 Outpatient Benjamin ESCAMILLA [facility] [id number] Univers 14:00:00 14:00:00 ALEXEI itedvin [facility] 2020-10-19 2020-10-19 Outpatient Benjamin ESCAMILLA [facility] [id number] Univers 13:30:00 13:30:00 ALEXEI sebastián [facility] 2020-08-19 2020-08-19 Outpatient R ROCKY [facility] [id number] Univers 09:15:00 09:15:00 THIAGO lowery [facility] 2020-08-19 2020-08-19 Outpatient R ROCKY [facility] [id number] Univers 09:15:00 09:15:00 THIAGO lowery [facility] 2020-08-19 2020-08-19 Outpatient R ROCKY [facility] [id number] Univers 09:15:00 09:15:00 THIAGOCARLEE lowery [facility] 2020-08-16 2020-08-16 Telephone [facility] 1.2.840.114 [id number] 00:00:00 00:00:00 Thiago Sandoval 350.1.13.10 [place] 4.2.7.2.686 Professio [phone] [address] 2020-08-16 2020-08-16 Telephone [facility] 1.2.840.114 [id number] Univers 00:00:00 00:00:00 Thiago Sandoval 350.1.13.10 [place] 4[place].2.[place] [phone] Me dical [address] 2020-08-13 2020-08-13 Outpatient Benjamin HIDALGO [facility] [id number] Univers 10:30:00 10:38:57 THIAGO [facility] 2020-08-13 2020-08-13 Outpatient R ROCKY [facility] [id number] Univers 10:30:00 10:38:57 THIAGO edvin [facility] 2020-08-13 2020-08-13 Outpatient R ROCKY [facility] [id number] Univers 10:30:00 10:38:57 [facility] 2020-08-13 2020-08-13 Nurse Nurse, [facility] 1.2.840.114 [id number] 10:24:46 10:38:57 Visit Women's [place] 350.1.13.10 [facility] 4.2.7.2.686 Professio [phone] [address] 2020-08-13 2020-08-13 Nurse Nurse, [facility] 1.2.840.114 [id number] [facility] 10:24:46 10:38:57 Visit Thiago Hidalgoton 350.1.13.10 it[place] of [place] 4[place]2.[place].2.[place] [phone] Nc dical [address] 2020-05-21 2020-05-21 Outpatient R NATALIIA KIM [facility] [id number] Univers 10:30:00 11:04:33 ity [facility] 2020-05-21 2020-05-21 Nurse Nurse, [facility] 1.2.840.114 [id number] 10:37:59 10:52:59 Visit Women's Jaime 350.1.13.10 [facility] 4.2.7.2.686 Professio [phone] [address] 2020-05-21 2020-05-21 Nurse Nurse, [facility] 1.2.840.114 [id number] [facility] 10:37:59 10:52:59 Visit Nataliia Kim 350.1.13.10 [place].2.[place] [phone] Nc dical [address] 2020-05-21 2020-05-21 Nataliia Lewis [facility] 1.2.704.975 [id number] 00:00:00 00:00:00 (Out) Cam [place] 350.1.13.10 [place] 4.2.7.2.686 Professio [id number] [address] 2020-05-21 2020-05-21 Nataliia Lewis [facility] 1.2.960.198 [id number] Univers 00:00:00 00:00:00 (Out) Cam [place] 350.1.13.10 [place] ty [place].2.[place] [phone] Nc dic[address] 2020-04-01 2020-04-01 Telephone Rocky [facility] 1.2.840.114 [id number] Univers 00:00:00 00:00:00 Thiago Sandoval 350.1.13.10 i [place].2.[place] [phone] Nc dic[address] 2020-04-01 2020-04-01 Telephone [facility] 1.2.840.114 [id number] 00:00:00 00:00:00 Thiago Sandoval 350.1.13.10 [place] 4.2.7.2.686 Professio [phone] [address] 2020-02-27 2020-02-27 Outpatient R NATALIIA KIM [facility] [id number] [facility] 14:00:00 14:19:34 ity [facility] 2020-02-27 2020-02-27 Nurse Nurse, [facility] 1.2.840.114 [id number] [facility] 13:55:14 14:19:34 Visit Judy Nataliiaharjinder Sandoval 350.1.13.10 [facility] [phone] [address] 2020-02-27 2020-02-27 Nurse Nurse, [facility] 1.2.840.114 [id number] 13:55:14 14:19:34 Visit Zack Jaime 350.1.13.10 [facility] 4.2.7.2.686 Professio [phone] [address] 2020-01-21 2020-01-21 [facility] 1.2.840.114 [id number] [facility] 00:00:00 00:00:00 Thiago Sandoval 350.1.13.10 [id number] [phone] [address] 2020-01-21 2020-01-21 Telephone Rocky [facility] 1.2.840.114 [id number] 00:00:00 00:00:00 Thiago Sandoval 350.1.13.10 [place] [id number] Professio [phone] [address] 2019-12-23 2019-12-23 Office Rocky [facility] [id number] [facility] 09:45:41 10:34:36 Visit Thiago Sandoval 350.1.13.10 [id number] [phone] Me dical [address] 2019-12-23 2019-12-23 Office Rocky [facility] [id number] 09:45:41 10:34:36 Visit Thiago Sandoval 350.1.13.10 Rachel [id number] Professio [phone] [address] 2019-12-23 2019-12-23 Outpatient R R[facility]Y [facility] [id number] [facility] 09:30:00 09:30:00 THIAGO lowery [facility] 2019-12-23 2019-12-23 Orders Doctor MARCOS 1.2.840.114 [id number] 00:00:00 00:00:00 Only Unassigned, SUSHANT 350.1.13.10 [place] [facility] 4.2.7.2.686 [phone] [facility] 2019-12-23 2019-12-23 Orders Doctor MARCOS 1.2.840.114 [id number] Univers 00:00:00 00:00:00 Only Unassigned, SUSHANT 350.1.13.10 ity of [place] [facility] 4.2.7.2.686 Esa as [phone] [address] 2019-12-08 2019-12-08 Outpatient R ROCKY [facility] [id number] Univers 10:30:00 10:30:00 THIAGO lowery [facility] 2019-12-05 2019-12-05 Nurse Nurse, [facility] 1.2.840.114 [id number] Univers 14:03:27 14:29:58 Visit Nataliia Kim 350.1.13.10 [place] [phone] [address] 2019-12-05 2019-12-05 Outpatient R [facility] [id number] Univers 14:00:00 14:00:[address] [facility] 2019-12-05 2019-12-05 Letter [facility] [id number] Univers 00:00:00 00:00:00 (Out) Thiago Sandoval 350.1.13.10 [place] [phone] [address] 2019-11-25 2019-11-25 Telephone Rocky [facility] 1.2.840.114 [id number] Univers 00:00:00 00:00:00 Thiago Sandoval 350.1.13.10 [place] [phone] [address] 2019-10-10 2019-10-10 Telephone Gurpreet [facility] 1.2.840.114 [id number] Univers 00:00:00 00:00:00 [facility] 350.1.13.10 it y of [place] 4.2.7.2.686 [place] Profess[place] [phone] [address] Office [facility] 2019-10-09 2019-10-09 Urgent Pob1, Acute Care Clinic [facility] 1. 2.840.114 [id number] Univers 14:55:26 15:15:26 Care Cleopatra [facility] 350.1.13.10 ity of [place] 4.2.7.2.686 [place] [phone] [address] Office [facility] 2019-10-09 2019-10-09 Outpatient R CLEMENT [facility] [id number] Univers 15:00:00 15:00:00 CLEOPATRA lowery [facility] 2019-09-23 2019-09-23 Telephone Nataliia Kmi [facility] 1.2.840.114 [id number] Univers 00:00:00 00:00:00 [facility] 350.1.13.10 it y of [place] 4.2.7.2.686 [place] Professio [phone] [facility] 044 [facility] 2019-09-03 2019-09-03 Nurse Nurse, [facility] 1.2.840.114 [id number] Univers 14:34:52 14:51:57 Visit Thiago Hidalgo 350.1.13.10 [place] [phone] [address] 2019-09-03 2019-09-03 Outpatient R [facility] [id number] Univers 14:30:00 14:30:[address] [facility] 2019-09-03 2019-09-03 Outpatient R [facility] [id number] Univers 09:00:00 09:00:[address] [facility] 2019-09-03 2019-09-03 Outpatient R [facility] [id number] Univers 09:00:00 09:00:[address] [facility] 2019-06-05 2019-06-05 Routine Nataliia Kim [facility] [id number] Univers 10:52:20 12:07:54 Alejandro Sandoval 350.1.13.10 ity of [place] [phone] [address] 2019-06-05 2019-06-05 Outpatient R NATALIIA KIM [facility] [id number] Univers 10:45:00 10:45:[address] [facility] 2019-06-05 2019-06-05 Letter Rocky [facility] [id number] Univers 00:00:00 00:00:00 (Out) Thiago Sandoval 350.1.13.10 i [place]2.[place] [phone] [address] 2019-06-05 2019-06-05 Orders Doctor RODRÍGUEZ 1.2.840.114 [id number] Univers 00:00:00 00:00:00 Only Unassigned, SUSHANT 350.1.13.10 ity of [place] [facility] 4.2.7.2.686 Esa as [phone] [facility] [address] 2019-05-21 2019-05-21 Outpatient R NATALIIA KIM [facility] [id number] Univers 09:45:00 09:45:[address] [facility] 2019-05-01 2019-05-01 Routine [facility] [id number] Univers 13:19:04 14:08:01 Thiago Sandoval 350.1.13.10 [place] [phone] [place] dic[address] 2019-05-01 2019-05-01 Telephone [facility] 1.2.840.114 [id number] Univers 00:00:00 00:00:00 Thiago Sandoval 350.1.13.10 [place] [phone] [facility] [address] [facility] 2019-05-01 2019-05-01 Letter [facility] [id number] Univers 00:00:00 00:00:00 (Out) Thiago Sandoval 350.1.13.10 [place] [phone] [place] [facility] [address] [facility] 2019-04-23 2019-04-26 [facility] Nataliia Kim [facility] 1.2.840.114 [id number] Univers 15:00:00 17:30:00 Encounter Alejandro Sandoval 350.1.13.10 [place] [phone] [facility] [address] 2019-04-23 2019-04-26 Inpatient P [facility]Y [facility] OZ [id number] Univers 15:00:00 17:30:[address] [facility] 2019-04-21 2019-04-21 Orders Doctor RODRÍGUEZ 1.2.840.114 [id number] Univers 00:00:00 00:00:00 Only Unassigned, SUSHANT 350.1.13.10 ity of [place] [facility] 4.2.7.2.686 Esa as [phone] [facility] [address] [place] 2019-04-16 2019-04-16 Routine Rocky [facility] 1.2.149.768 [id number] Univers 10:30:17 10:45:17 Thiago [place] 350.1.13.10 [place] [phone] [place] dicwa nal [address] [facility] 2019-04-16 2019-04-16 Letter Nataliia Kim [facility] 1.2.537.131 [id number] Univers 00:00:00 00:00:00 (Out) Cam [place] 350.1.13.10 [place] [phone] [place] dical nal [address] [facility] 2019-04-14 2019-04-14 Hospital MARCOS Amanda 1.2.840.114 [id number] Univers 04:00:00 06:59:00 Encounter Lilliam SUSHANT 350.1.13.10 [place]2.[place] [phone] [facility] [address] [place] 2019-04-14 2019-04-14 Outpatient P VASILIY [facility] OZ [id number] Univers 04:00:00 06:59:[address] [facility] 2019-04-14 2019-04-14 Telephone Brigida Kim [facility] 1.2.840.114 [id number] Univers 00:00:00 00:00:00 [place] 350.1.13.10 [place] [phone] [place] dical nal [address] [place] [address] 2019-04-09 2019-04-09 Routine Nataliia Kim [facility] [id number] Univers 09:50:14 11:03:30 Cam [place] 350.1.13.10 [place] [phone] N[place] dicwa nal [address] [place] [address] 2019-04-09 2019-04-09 Letter Nataliia Kim [facility] 1.2.252.911 [id number] Univers 00:00:00 00:00:00 (Out) Alejandro Sandoval 350.1.13.10 [place] [facility] [phone] N[place] dical formerly [facility] [address] [facility] 2019-04-09 2019-04-09 Orders Doctor MARCOS 1.2.840.114 [id number] Univers 00:00:00 00:00:00 Only Unassigned, SUSHANT 350.1.13.10 ity of [place] [facility] 4.2.7.2.686 Esa as [phone] [facility] [address] [place] 2019-04-07 2019-04-07 [facility] [id number] Univers 13:41:47 23:59:00 THIAGO ity [facility] 2019-04-07 2019-04-07 [facility] 1.2.840.114 [id number] Univers 13:41:00 23:59:00 Encounter Thiago Sandoval 350.1.13.10 ity [facility] [place]2.7.2.[place] [phone] [facility] [address] [place] 2018-12-11 2018-12-11 Features Editor Ultrasound, [facility] 1.2 .840.114 [id number] Univers 13:50:56 15:15:53 Visit Mirela Bajwa WAREHOUSE LOADER 350.1.13.10 ity of [facility] 4.2.7.2.686 Esa as MATERNAL [phone] Med ical & CHILD 369 [facility] 2018-12-09 2018-12-09 Telephone [facility] 1.2.840.114 [id number] Univers 00:00:00 00:00:00 Yu Prajapati WAREHOUSE LOADER 350.1.13.10 it y of [facility] 4.2.7.2.686 [place]sa as MATERNAL [phone] Med ical & CHILD 107 [facility] 2018-12-04 2018-12-04 Telephone [facility] 1.2.840.114 [id number] Univers 00:00:00 00:00:00 Yu N WAREHOUSE LOADER 350.1.13.10 it y of [facility] 4.2.7.2.686 Esa as MATERNAL [phone] [facility] ical & CHILD [address] [place] [address] 2018-12-02 2018-12-02 Routine [facility] 1.2.059.257 [id number] Univers 17:07:59 17:46:04 Yu N WAREHOUSE LOADER 350.1.13.10 i ty of Visit [facility] 4.2.7.2.686 Esa as MATERNAL [phone] [facility] & CHILD [address] [place] [address] 2018-11-12 2018-11-12 Telephone [facility] 1.2.840.114 [id number] Univers 00:00:00 00:00:00 Yu N WAREHOUSE LOADER 350.1.13.10 it y of [facility] 4.2.7.2.686 Esa as MATERNAL [phone] [facility] & CHILD [address] [place] [address] 2018-11-10 2018-11-10 Nurse MARCOS Stuart 1.2.840.114 [id number] Univers 00:00:00 00:00:00 Triage Greer CANCHOLA 350.1.13.10 it y of [facility] 4.2.7.2.686 Esa as [phone] [address] 2018-11-04 2018-11-04 Routine [facility] 1.2.043.214 [id number] Univers 15:23:20 15:50:49 Yu N WAREHOUSE LOADER 350.1.13.10 i ty of Visit [facility] 4.2.7.2.686 Esa as MATERNAL [phone] [facility] & CHILD [address] [place] [address] 2018-10-31 2018-10-31 Telephone [facility] 1.2.840.114 [id number] Univers 00:00:00 00:00:00 Yu N WAREHOUSE LOADER 350.1.13.10 it y of [facility] 4.2.7.2.686 Esa as MATERNAL [phone] [facility] & CHILD [address] [place] [address] 2018-10-23 2018-10-23 [facility] [id number] Univers 10:30:00 10:45:20 YU lowery [facility] 2018-10-23 2018-10-23 Features Editor Lab, [facility] 1.2.840. 114 [id number] Univers 10:15:07 10:45:20 Visit Yu Ortega WAREHOUSE LOADER 350.1.13.10 ity of [facility] 4.2.7.2.686 Esa as MATERNAL [phone] Med ical & CHILD 107 [facility] 2018-10-23 2018-10-23 Features Editor Ultrasound, [facility] 1.2 .840.114 [id number] Univers 09:06:03 10:07:32 Visit Catrina Apodaca WAREHOUSE LOADER 350.1.13.10 ity of [facility] 4.2.7.2.686 Esa as MATERNAL [phone] [facility] ical & CHILD 369 [facility] Results Test Description Test Time Test Comments Results Result Comments Source POCT Test 2021-12-26 16:57:00 Test Item Value Reference Range Interpretation Comme nts POCT PREG (test code = 1605) Negative On board controls acceptable with C Line (test code = 3574) Yes POCT PREG LOT # (test code = 3575) [id number] POCT PREG TEST DATE (test code = 3576) [id number] 16:57:00 Test Item Value Reference Range Interpretation Comments POCT PREG (test code = 1605) Negative On board controls acceptable with Yes C Line (test code = 3574) POCT PREG LOT # (test code = 3575) [id number] POCT PREG TEST DATE (test 01/23/2022 code = 3576) [facility]
[2022-01-19] MEDS ORDERED: ONDANSETRON 4 MG/2 ML VIAL ONE (10:16)
[2022-01-19] MEDS ORDERED: FAMOTIDINE 20 MG/2 ML VIAL IV ONE (10:16)
[2022-01-19] MEDS ORDERED: NA CHLORIDE 0.9% 1,000 ML ONE (10:16)
[2022-01-19 10:37] LABS: Absolute Lymphocytes (CBC) 1.6 K/uL (0.7-4.9); Hematocrit 39.8 % (36.0-45.0); Lymphocytes % 25.7 % (15.3-44.8); MCV 80.3 fL (80-100); RBC Red Blood Cell Count 4.95 M/uL (3.86-4.86)
[2022-01-19 10:42] LABS: Albumin 3.6 g/dL (3.4-5.0); Bilirubin Total 0.5 mg/dL (0.2-1.0); Potassium 3.6 mmol/L (3.5-5.1); Protein, Total 7.4 g/dL (6.4-8.2)
--- NOTE | 2022-01-19 12:31 | ER ---
Nurse's Notes [facility] Name: Naun Cortes Age: 21 yrs Sex: Female : 2000 Arrival Date: 01/19/2022 Time: 09:52 Bed Treatment Private MD: Diagnosis: Influenza Presentation: 01/19 10:05 Chief complaint: Patient states: N/V/ABD pain X 1 day. Coronavirus screen: At this ld1 time, the client does not indicate any symptoms associated with coronavirus-19. Ebola Screen: No symptoms or risks identified at this time. Initial Sepsis Screen: Does the patient meet any 2 criteria? No. Patient's initial sepsis screen is negative. Does the patient have a suspected source of infection? No. Patient's initial sepsis screen is negative. Risk Assessment: Do you want to hurt yourself or someone else? Patient reports no desire to harm self or others. Onset of symptoms was January 19, 2022. 10:05 Method Of Arrival: Ambulatory ld1 10:05 Acuity: ELIOT 3 ld1 Triage Assessment: 10:06 General: Appears in no apparent distress. comfortable, Behavior is calm, cooperative, ld1 appropriate for age. Pain: Complains of pain in abdomen Pain does not radiate. Pain currently is 6 out of 10 on a pain scale. Quality of pain is described as throbbing. EENT: No signs and/or symptoms were reported regarding the EENT system. Neuro: Level of Consciousness is awake, alert, obeys commands, Oriented to person, place, time, situation, Appropriate for age. Cardiovascular: Capillary refill < 3 seconds Patient's skin is warm and dry. Respiratory: Airway is patent Respiratory effort is even, unlabored. GI: Abdomen is flat, non-distended, Reports lower abdominal pain, upper abdominal pain, nausea. : No signs and/or symptoms were reported regarding the genitourinary system. Derm: No signs and/or symptoms reported regarding the dermatologic system. Musculoskeletal: No signs and/or symptoms reported regarding the musculoskeletal system. 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 - Social history:: Smoking status: Patient denies any tobacco usage or history of. Patient/guardian denies using alcohol. Screenin:08 Abuse screen: Denies threats or abuse. Denies injuries from another. Nutritional ph screening: No deficits noted. Tuberculosis screening: No symptoms or risk factors identified. Fall Risk None identified. Assessment: 10:21 General: Appears in no apparent distress. comfortable, slender, well groomed, Behavior ph is calm, cooperative, appropriate for age, Denies fever, chills. Pain: Complains of pain in umbilical area. Neuro: Level of Consciousness is awake, alert, obeys commands, Oriented to person, place, time, situation. Cardiovascular: Capillary refill < 3 seconds in bilateral fingers Patient's skin is warm and dry. Respiratory: Airway is patent Respiratory effort is even, unlabored. GI: Abdomen is non-distended, Bowel sounds present X 4 quads. Abd is soft and non tender X 4 quads. Reports lower abdominal pain, upper abdominal pain, nausea, vomiting. Derm: Skin is intact, Skin is pink, warm \\T\\ dry. Vital Signs: 10:05 BP 124 / 73; Pulse 89; Resp 18; Temp 97.5(O); Pulse Ox 99% on R/A; Weight 58.97 kg; ld1 Height 5 ft. 3 in. (160.02 cm); Pain 6/10; 12:48 BP 118 / 76; Pulse 78; Resp 18; Temp 97.9; Pulse Ox 99% on R/A; ph 10:05 Body Mass Index 23.03 (58.97 kg, 160.02 cm) ld1 ED Course: 09:52 Patient arrived in ED. mr 09:54 Charlie Ceja PA is PHCP. jmm 09:54 Alfa Herrmann MD is Attending Physician. [facility] 10:05 Tammy Addison, RN is Primary Nurse. ph 10:06 Triage completed. ld1 10:06 Arm band placed on right wrist. ld1 10:08 Patient has correct armband on for positive identification. Bed in low position. Call ph light in reach. Side rails up X 1. Door closed. Noise minimized. Warm blanket given. 10:14 Initial lab(s) drawn, by me, sent to lab. Inserted saline lock: 20 gauge in right kj1 antecubital area, using aseptic technique. Blood collected. 10:38 Influenza Screen (a \\T\\ B) Sent. bp 10:38 SARS-COV-2 RT PCR (Document "Date of Onset" if Symptomatic) Sent. bp 11:45 No provider procedures requiring assistance completed. ph 12:48 IV discontinued, intact, bleeding controlled, No redness/swelling at site. Pressure ph dressing applied. Administered Medications: 10:23 Drug: NS 0.9% 1000 ml Route: IV; Rate: 1 bolus; Site: left antecubital; ph 12:00 Follow up: Response: No adverse reaction; IV Status: Completed infusion; IV Intake: ph 1000ml 10:23 Drug: Pepcid (famotidine) 20 mg Route: IVP; Site: left antecubital; ph 12:49 Follow up: Response: No adverse reaction ph 10:23 Drug: Zofran (Ondansetron) 4 mg Route: IVP; Site: left antecubital; ph 12:49 Follow up: Response: No adverse reaction ph Medication: 10:09 VIS not applicable for this client. ph Intake: 12:00 IV: 1000ml; Total: 1000ml. ph Outcome: 12:30 Discharge ordered by MD. travis 12:48 Discharged to home ambulatory, with family. ph 12:48 Condition: good 12:48 Discharge instructions given to family, Instructed on discharge instructions, follow up and referral plans. medication usage, Demonstrated understanding of instructions, follow-up care, medications, Prescriptions given X 2. 12:49 Patient left the ED. ph Signatures: Charlie Ceja PA PA jmm Rivera, Mary mr Tammy Addison, RN RN ph Toy Kaur, RN RN Mandy Colvin kj1 Nelida Villalta RN RN ld1
--- NOTE | 2022-01-19 12:31 | EDPHYS ---
Physician Documentation [facility] Name: Naun Cortes Age: 21 yrs Sex: Female : 2000 Arrival Date: 01/19/2022 Time: 09:52 Bed Treatment Private MD: Alfa Gee HPI: 01/19 10:09 This 21 yrs old Female presents to ER via Ambulatory with complaints of jmm Abdominal Pain. 10:09 The patient presents with abdominal pain. Onset: The symptoms/episode began/occurred jmm gradually, 2 day(s) ago. The symptoms do not radiate. Associated signs and symptoms: Pertinent positives: nausea, vomiting. The symptoms are described as achy. Modifying factors: The symptoms are alleviated by nothing, the symptoms are aggravated by food. The patient has experienced similar episodes in the past. 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 - Social history:: Smoking status: Patient denies any tobacco usage or history of. Patient/guardian denies using alcohol. ROS: 10:09 Constitutional: Positive for body aches. jmm 10:09 ENT: Positive for difficulty handling secretions, sore throat. 10:09 Respiratory: Positive for cough. 10:09 Abdomen/GI: Positive for abdominal pain, nausea and vomiting. 10:09 All other systems are negative. Exam: 10:09 Constitutional: This is a well developed, well nourished patient who is awake, alert, jmm and in no acute distress. Head/Face: atraumatic. Eyes: EOMI, no conjunctival erythema appreciated 10:09 Neck: Trachea midline, Supple Chest/axilla: Normal chest wall appearance and motion. Cardiovascular: Regular rate and rhythm. No edema appreciated Respiratory: Normal respirations, no respiratory distress appreciated Abdomen/GI: Non distended Back: Normal ROM Skin: General appearance color normal MS/ Extremity: Moves all extremities, no obvious deformities appreciated, no edema noted to the lower extremities Neuro: Awake and alert Psych: Behavior is normal, Mood is normal, Patient is cooperative and pleasant 10:09 ENT: Posterior pharynx: erythema, that is moderate. Vital Signs: 10:05 BP 124 / 73; Pulse 89; Resp 18; Temp 97.5(O); Pulse Ox 99% on R/A; Weight 58.97 kg; ld1 Height 5 ft. 3 in. (160.02 cm); Pain 6/10; 12:48 BP 118 / 76; Pulse 78; Resp 18; Temp 97.9; Pulse Ox 99% on R/A; ph 10:05 Body Mass Index 23.03 (58.97 kg, 160.02 cm) ld1 MDM: 10:09 Patient medically screened. [facility] 12:29 Data reviewed: vital signs, nurses notes. Counseling: I had a detailed discussion with [facility] the patient and/or guardian regarding: the historical points, exam findings, and any diagnostic results supporting the discharge/admit diagnosis, the need for outpatient follow up, to return to the emergency department if symptoms worsen or persist or if there are any questions or concerns that arise at home. 01/19 10:11 Order name: CBC with Diff; Complete Time: 10:46 [facility] 01/19 10:11 Order name: CMP; Complete Time: 10:46 [facility] 01/19 10:11 Order name: Lipase; Complete Time: 10:46 [facility] 01/19 10:22 Order name: SARS-COV-2 RT PCR (Document "Date of Onset" if Symptomatic); Complete Time: [facility] 11:43 01/19 10:22 Order name: Influenza Screen (a \\T\\ B); Complete Time: 10:54 [facility] 01/19 10:11 Order name: IV Saline Lock; Complete Time: 10:14 [facility] 01/19 10:11 Order name: Labs collected and sent; Complete Time: 10:14 [facility] 01/19 10:11 Order name: Urine Dipstick-Ancillary (obtain specimen); Complete Time: 10:14 [facility] 01/19 10:11 Order name: Urine Test (obtain specimen); Complete Time: 10:14 [facility] Administered Medications: 10:23 Drug: NS 0.9% 1000 ml Route: IV; Rate: 1 bolus; Site: left antecubital; ph 12:00 Follow up: Response: No adverse reaction; IV Status: Completed infusion; IV Intake: ph 1000ml 10:23 Drug: Pepcid (famotidine) 20 mg Route: IVP; Site: left antecubital; ph 12:49 Follow up: Response: No adverse reaction ph 10:23 Drug: Zofran (Ondansetron) 4 mg Route: IVP; Site: left antecubital; ph 12:49 Follow up: Response: No adverse reaction ph Disposition Summary: 01/19/22 12:30 Discharge Ordered Location: Home [facility] Condition: Stable [facility] Diagnosis - Influenza [facility] Followup: [facility] - With: Private Physician - When: 2 - 3 days - Reason: Recheck today's complaints, Continuance of care, Re-evaluation by your physician Discharge Instructions: - Discharge Summary Sheet [facility] - Influenza, Adult [facility] Forms: - Medication Reconciliation Form [facility] - Work release form [facility] - Thank You Letter [facility] - Antibiotic Education [facility] - Prescription Opioid Use [facility] Prescriptions: - Tamiflu 75 mg Oral Capsule - take 1 tablet by ORAL route every 12 hours for 5 days; 10 tablet; Refills: 0, [facility] Product Selection Permitted - ondansetron 4 mg Oral tablet,disintegrating - take 1 tablet by ORAL route every 4-6 hours As needed; 20 tablet; Refills: 0, [facility] Product Selection Permitted Signatures: Dispatcher [employer] Alfa Vidal MD MD cha Mickail, Joel, PA PA jmm Hall, Patricia, RN RN Nelida Aragon RN RN ld1
[2022-01-19 12:59] VITALS: O2SAT 99
[2022-01-19 13:05] VITALS: BP 118/76; TEMP 97.9
== END 2022-01-19 12:49 | disposition home or self-care (01) ==
LOC: ER 09:50
DX: J11.1 Influenza due to unidentified influenza virus with other respiratory manifestations (principal); Z20.822 Contact with and (suspected) exposure to COVID-19
CPT/HCPCS: 96361; 85025; 36415; 83690; 80053; 87804 ×2; 96375; 96374; 99284; U0003; J7030; J2405

== ENCOUNTER 2023-02-25 06:30 | Emergency (ER) | payer OTHER, SELFPAY ==
--- OUTSIDE RECORDS SUMMARY | 2023-02-25 06:36 | XMS REPORT | Continuity of Care Document ---
:2000 Author Organization [facility] t Address [address] [facility] [address] [place] [address] Care Team Providers Name Role Phone PCP, PATIENT DOES NOT HAVE A Primary Care Physician Unavaila THIAGO [place] Attending Clinician Unavailable Thiago Hidalgo PA-C Attending Clinician Doctor Unassigned, [place] Attending Clinician Unavailable Alexei Gonzalez Attending Clinician ALEXEI ESCAMILLA Attending Clinician Unavailable Radha Cavazos MD Attending Clinician RADHA CAVAZOS Attending Clinician Unavailable Pob, [facility] Lab Main Attending Clinician Unavailable NATALIIA KIM Attending Clinician Unavailable Nurse, [facility] Attending Clinician Unavailable Nataliia Kim MD Attending Clinician 2, [facility] Attending Clinician Unavailable Kathia Stevenson Attending Clinician Pob1, Acute Care Clinic Attending Clinician Unavailable Cleopatra Brock Attending Clinician CLEOPATRA VAUGHAN Attending Clinician Unavailable Lilliam Amanda MD Attending Clinician LILLIAM AMANDA Attending Clinician Unavailable Brigida Banda Attending Clinician Ultrasound, [facility] Attending Clinician Unavailable Mirela Bajwa MD Attending Clinician Yu [place] Attending Clinician Narciso SKY, [place] Attending Clinician Unavailable YU ORTEGA Attending Clinician Unavailable Lab, [facility] Attending Clinician Unavailable Catrina Apodaca MD Attending Clinician RADHA CAVAZOS Admitting Clinician Unavailable Radha Cavazos MD Admitting Clinician Nataliia Kim MD Admitting Clinician NATALIIA KIM Admitting Clinician Unavailable Lilliam Amanda MD Admitting Clinician [phone] LILLIAM AMANDA Admitting Clinician Unavailable THIAGO HIDALGO Admitting Clinician Unavailable Payers Payer Name Policy Type Policy Number Effective Date Expiration Date Ailyn BARRERA [id number] 1993 00:00:00 Problems Condition Condition Condition Status Onset Resolution [...] Added automatic ally from request for surgery [id number] Routine Routine Disease Active Univers 3-13 it y of follow[facility] Branch Generalize Generalize Disease Active 2018-03 U oralers d anxiety d anxiety 1-15 ity of disorder disorder 00:00: [address] Bipolar 1 Bipolar 1 Disease Active Uni vers disorder disorder 6-05 ity of 00:00: [address] Depression Depression Disease Active U ion , , 3-19 ity [place]spec[place] depression depression Br anch type type Allergies, Adverse Reactions, Alerts Allergy Allergy Status Severity Reaction(s) Onset Inactive Treating Comm ents Source Name Type Date Date Clinician NO KNOWN Drug Active Univers ALLERGIE Class ity of S [facility] Social History Social Habit Start Date Stop Date Quantity Comments Source Gender identity Universit y of [facility] Sexual orientation Univer sity [facility] Exposure to 2022-06-12 2022-06-22 Not sure University SARS-CoV-2 (event) 00:00:00 12:53:00 [facility] History of Social 2021-12-26 2021-12-26 Univers ity of function 00:00:00 00:00:00 [facility] Alcohol intake 2021-02-07 2021-02-07 Current University of 00:00:00 00:00:00 non-drinker of [facility] alcohol Branch (finding) Tobacco Comment 2017-06-11 2017-06-11 denies smoke Univers ity of 00:00:00 00:00:00 exposure [facility] Tobacco use and 2017-06-11 2017-06-11 Smokeless Universit y of exposure 00:00:00 00:00:00 tobacco non-user [facility] Sex Assigned At 2000 2002 Universit y of 00:00:00 00:00:00 [facility] Smoking Status Start Date Stop Date Source Never smoked tobacco [facility] Medications Ordered Filled Start Stop Current Ordering Indication Dosage Frequency Signature Comments Components Source Medication Medication Date Date Medication? Clinician (SIG) Name Name amoxicillin Yes [id number] 1{tbl} Take 1 Univers -clavulanat 8-25 tablet by ity of e 00:00: mouth in [place] (AUGMENTIN) 00 the Medical 875-125 mg morning Branch per tablet and 1 tablet in the evening. amoxicillin Yes [id number] 1{tbl} Take 1 Univers -clavulanat 8-25 tablet by ity of e 00:00: mouth in [place] (AUGMENTIN) 00 the Medical 875-125 mg morning Branch per tablet and 1 tablet in the evening. amoxicillin 2022- No [id number] 500mg Take 1 Univers 500 mg - 04-10 capsule by ity of capsule 00:00: 04:59 mouth in [place] 00 :00 the Medical morning Branch and 1 capsule in the evening. Do all this for 7 days. norgestimat Yes [id number] 1{tbl} Take 1 Univers e-ethinyl 3-30 tablet by ity o f estradioL 00:00: mouth in [facility] [place] [facility] ([facility]) 00 the Medical 0.25-35 morning. Branch mg-mcg per tablet norgestimat 2022-0 Yes [id number] 1{tbl} Take 1 Univers e-ethinyl 3-30 tablet by ity o f estradioL 00:00: mouth in [facility] [place] [facility] ([facility]) 00 the Medical 0.25-35 morning. Branch mg-mcg per tablet norgestimat 2022-0 Yes [id number] 1{tbl} Take 1 Univers e-ethinyl 3-30 tablet by ity o f estradioL 00:00: mouth in [facility] [place] [facility] ([facility]) 00 the Medical 0.25-35 morning. Branch mg-mcg per tablet norgestimat 3-0 Yes [id number] 1{tbl} Take 1 Univers e-ethinyl 3-30 tablet by ity o f estradioL 00:00: mouth in [facility] [place] [facility] ([facility]) 00 the Medical 0.25-35 morning. Branch mg-mcg per tablet norgestimat 2022-0 3- No [id number] 1{tbl} Take 1 Univers e-ethinyl 3-30 08-22 tablet by ity of estradioL 00:00: 00:00 mouth in [facility] ([facility]) 00 :00 the Medical 0.25-35 morning. Branch mg-mcg per tablet norgestimat 2022-0 3- No [id number] 1{tbl} Take 1 Univers e-ethinyl 3-30 08-22 tablet by ity of estradioL 00:00: 00:00 mouth in [facility] ([facility]) 00 :00 the Medical 0.25-35 morning. Branch mg-mcg per tablet acyclovir 2022-0 Yes [id number] Take 1 U nivers 400 mg 3-08 tablet by ity of tablet 00:00: mouth 3 00 (three) Medical times Branch daily for 5 days. acyclovir 2022-0 Yes [id number] Take 1 U nivers 400 mg 3-08 tablet by ity of tablet 00:00: mouth 3 00 (three) Medical times Branch daily for 5 days. acyclovir 2022-0 Yes [id number] Take 1 U nivers 400 mg 3-08 tablet by ity of tablet 00:00: mouth 3 00 (three) Medical times Branch daily for 5 days. acyclovir 2023-0 Yes [id number] Take 1 U nivers 400 mg 3-08 tablet by ity of tablet 00:00: mouth (three) Medical times Branch daily for 5 days. acyclovir 2023-0 Yes [id number] Take 1 U nivers 400 mg 3-08 tablet by ity of tablet 00:00: mouth (three) Medical times Branch daily for 5 days. acyclovir 2023-0 Yes [id number] Take 1 U nivers 400 mg 3-08 tablet by ity of tablet 00:00: mouth (three) Medical times Branch daily for 5 days. acyclovir 2023-0 Yes [id number] Take 1 U nivers 400 mg 3-08 tablet by ity of tablet 00:00: mouth (three) Medical times Branch daily for 5 days. acyclovir 3-0 Yes [id number] Take 1 U nivers 400 mg 3-08 tablet by ity of tablet 00:00: mouth ([facility]) Medical times Branch daily for 5 days. acyclovir 3-0 Yes [id number] Take 1 U nivers 400 mg 3-08 tablet by ity of tablet 00:00: mouth (three) Medical times Branch daily for 5 days. acyclovir 3-0 Yes [id number] Take 1 U nivers 400 mg 3-08 tablet by ity of tablet 00:00: mouth (three) Medical times Branch daily for 5 days. acyclovir 2021-1 Yes [id number] Take 1 U nivers 400 mg 2-20 tablet by ity of tablet 00:00: mouth (three) Medical times Branch daily for 5 days. acyclovir 2021-3- No [id number] Take 1 Univers 400 mg 2-20 03-08 tablet by ity of tablet 00:00: 00:00 mouth 3 00 : (three) Medical times Branch daily for 5 days. lactated 2021- Yes 1000mL at 75 Univer s ringers IV 0-03 mL/hr, ity of infusion 21:00: [place] 1[place] 00 IV Medical Infusion, Branch CONTINUOUS , Starting on Sun12/26/21 at 1600, Until Discontinu ed, Routine, PACU lactated 2021-03- No 1000mL at 75 Unive rs ringers IV [...] No 25ug 25 mcg, Un ada (SUBLIMAZE 0-03 10-04 Slow IV ity o f (PF)) 20:55: 00:20 Push, [place] injection 33 :30 Q5MIN PRN, Medi rain 25 mcg 4 doses, Branch Starting on Sun12/26/21 at 1555, Until Sun12/26/21 at 1920, Routine, Pain (scale 4-6), PACU ondansetron 2021-03- No 4mg 4 mg, Slow Univers (ZOFRAN 0-03 10-04 IV Push, ity of (PF)) 20:55: 00:20 PRN, 1 [place] injection 4 33 :30 dose, Medical mg Starting Branch on Sun12/26/21 at 1555, Until Sun12/26/21 at 1920, Routine, Nausea and Vomiting (N/V), PACU bupivacaine 2021-03- No PRN, Unive rs (preserv 0-03 10-03 Starting ity of free) 20:31: 20:42 on Sun (SENSORCAIN 00 :34 12/26/21 at In dical E MPF) 0.25 1531, Branch % (2.5 Until Mon mg/mL) 12/26/21 at injection 1542, Routine, Intra-op sodium 2021-03- No PRN, Univers chloride 0-03 10-03 Starting ity of 0.9 % 20:19: 20:42 on Mon [place] irrigation 00 :34 12/26/21 at [facility] ical solution 1519, Branch Until 12/26/21 at 1542, Intra-op BIOTIN ORAL 2021-03 Yes Take by Uni vers 0-03 mouth. ity of 17:20: [address] ZINC ORAL 2021-03 Yes Take by Unive rs 0-03 mouth. ity of 17:20: [address] BIOTIN ORAL 2021-03 Yes Take by Uni vers 0-03 mouth. ity of 17:20: [address] ZINC ORAL 2021-03 Yes Take by Unive rs 0-03 mouth. ity of 17:20: [address] BIOTIN ORAL 2021-03 Yes Take by Uni vers 0-03 mouth. ity of 17:20: [address] ZINC ORAL 2021-03 Yes Take by Unive rs 0-03 mouth. ity of 17:20: [address] BIOTIN ORAL 2021-03 Yes Take by Uni vers 0-03 mouth. ity of 17:20: [address] ZINC ORAL 2021-03 Yes Take by Unive rs 0-03 mouth. ity of 17:20: [address] BIOTIN ORAL 2021-03 Yes Take by Uni vers 0-03 mouth. ity of 17:20: [address] ZINC ORAL 2021-03 Yes Take by Unive rs 0-03 mouth. ity of 17:20: [address] BIOTIN ORAL 2021-03 Yes Take by Uni vers 0-03 mouth. ity of 17:20: [address] ZINC ORAL 2021-03 Yes Take by Unive rs 0-03 mouth. ity of 17:20: [address] BIOTIN ORAL 2021-03 Yes Take by Uni vers 0-03 mouth. ity of 17:20: [address] ZINC ORAL 2021-03 Yes Take by Unive rs 0-03 mouth. ity of 17:20: [address] BIOTIN ORAL 2022-1 Yes Take by Uni vers 0-03 mouth. ity of 17:20: [address] ZINC ORAL 2022-1 Yes Take by Unive rs 0-03 mouth. ity of 17:20: [address] BIOTIN ORAL 2022-1 Yes Take by Uni vers 0-03 mouth. ity of 17:20: [address] ZINC ORAL 2022-1 Yes Take by Unive rs 0-03 mouth. ity of 17:20: [address] BIOTIN ORAL 2022-1 Yes Take by Uni vers 0-03 mouth. ity of 17:20: [address] ZINC ORAL 2022-1 Yes Take by Unive rs 0-03 mouth. ity of 17:20: [address] BIOTIN ORAL 2022-1 Yes Take by Uni vers 0-03 mouth. ity of 17:20: [address] ZINC ORAL 2022-1 Yes Take by Unive rs 0-03 mouth. ity of 17:20: [address] BIOTIN ORAL 2022-1 Yes Take by Uni vers 0-03 mouth. ity of 17:20: [address] ZINC ORAL 2022-1 Yes Take by Unive rs 0-03 mouth. ity of 17:20: [address] BIOTIN ORAL 2022-1 Yes Take by Uni vers 0-03 mouth. ity of 17:20: [address] ZINC ORAL 2022-1 Yes Take by Unive rs 0-03 mouth. ity of 17:20: [address] BIOTIN ORAL 2022-1 Yes Take by Uni vers 0-03 mouth. ity of 17:20: [address] ZINC ORAL 2022-1 Yes Take by Unive rs 0-03 mouth. ity of 17:20: [address] BIOTIN ORAL 2022-1 Yes Take by Uni vers 0-03 mouth. ity of 17:20: [address] ZINC ORAL 2022-1 Yes Take by Unive rs 0-03 mouth. ity of 17:20: [address] BIOTIN ORAL 2022-1 Yes Take by Uni vers 0-03 mouth. ity of 17:20: [address] ZINC ORAL 2022-1 Yes Take by Unive rs 0-03 mouth. ity of 17:20: [address] BIOTIN ORAL 2021- Yes Take by Uni vers 0-03 mouth. ity of 17:20: [address] ZINC ORAL 2021-1 Yes Take by Unive rs 0-03 mouth. ity of 17:20: [address] BIOTIN ORAL 2021- Yes Take by Uni vers 0-03 mouth. ity of 17:20: [address] ZINC ORAL 2021- Yes Take by Unive rs 0-03 mouth. ity of 17:20: [address] BIOTIN ORAL 2021- Yes Take by Uni vers 0-03 mouth. ity of 17:20: [address] ZINC ORAL 2021- Yes Take by Unive rs 0-03 mouth. ity of 17:20: [address] BIOTIN ORAL 2021- Yes Take by Uni vers 0-03 mouth. ity of 17:20: [address] ZINC ORAL 2021- Yes Take by Unive rs 0-03 mouth. ity of 17:20: [address] BIOTIN ORAL 2021- Yes Take by Uni vers 0-03 mouth. ity of 17:20: [address] ZINC ORAL 2021- Yes Take by Unive rs 0-03 mouth. ity of 17:20: [address] BIOTIN ORAL 2021- Yes Take by Uni vers 0-03 mouth. ity of 17:20: [address] ZINC ORAL 2021- Yes Take by Unive rs 0-03 mouth. ity of 17:20: [address] BIOTIN ORAL 2021- Yes Take by Uni vers 0-03 mouth. ity of 17:20: [address] ZINC ORAL 2021-1 Yes Take by Unive rs 0-03 mouth. ity of 17:20: [address] BIOTIN ORAL 2021- Yes Take by Uni vers 0-03 mouth. ity of 17:20: [address] ZINC ORAL 2021-1 Yes Take by Unive rs 0-03 mouth. ity of 17:20: [address] lactated 2021-2- No 1000mL at 42 Unive rs ringers IV 0-03 10-03 mL/hr, ity of infusion 16:45: 17:02 1,000 mL, [place] 1,000 mL 00 :00 IV Medical Infusion, Branch ONCE, 1 dose, On Sun12/26/21 at 1145, Routine, DSU Pre-op lactated 2021-03 1000mL at 42 Unive rs ringers IV 0-03 10-03 mL/hr, ity of infusion 16:45: 17:02 1,000 mL, [place] 1,000 mL 00 :00 IV Medical Infusion, Branch ONCE, 1 dose, On Sun12/26/21 at 1145, Routine, DSU Pre-op traMADoL 50 2021-03- No [id number] 50mg Take 1 Uni vers mg tablet 0-03 10-11 tablet by ity of 00:00: 04:59 mouth [place] 00 :00 every 6 Medical (six) Branch hours as needed for Pain (scale 4-6) or Pain (scale 7-10) for up to 7 days. Indication s: acute pain traMADoL 50 2021-03 [id number] 50mg Take 1 Uni vers mg tablet 0-03 10-11 tablet by ity of 00:00: 04:59 mouth [place] 00 :00 every 6 Medical (six) Branch hours as needed for Pain (scale 4-6) or Pain (scale 7-10) for up to 7 days. Indication s: acute pain traMADoL 50 2021-03 [id number] 50mg Take 1 Uni vers mg tablet 0-03 10-11 tablet by ity of 00:00: 04:59 mouth [place] 00 :00 every 6 Medical (six) Branch hours as needed for Pain (scale 4-6) or Pain (scale 7-10) for up to 7 days. Indication s: acute pain BIOTIN ORAL 0 Yes Take by Uni vers 9-28 mouth. ity of 16:21: [place] [address] Medical Branch ZINC ORAL 2021-0 Yes Take by Unive rs 9-28 mouth. ity of 16:21: [place] [address] Medical Branch metroNIDAZO 2021-0 Yes [id number] 500mg Take 1 Univers LE 500 mg 8-17 tablet by ity o f tablet 00:00: mouth [place] 00 every 12 Medical (twelve) Branch hours. metroNIDAZO 2-0 Yes [id number] 500mg Take 1 Univers LE 500 mg 8-17 tablet by ity o f tablet 00:00: mouth [place] 00 every 12 Medical (twelve) Branch hours. metroNIDAZO 2-0 Yes [id number] 500mg Take 1 Univers LE 500 mg 8-17 tablet by ity o f tablet 00:00: mouth [place] 00 every 12 Medical (twelve) Branch hours. metroNIDAZO 2021-0 Yes [id number] 500mg Take 1 Univers LE 500 mg 8-17 tablet by ity o f tablet 00:00: mouth [place] 00 every 12 Medical (twelve) Branch hours. metroNIDAZO 2021-0 Yes [id number] 500mg Take 1 Univers LE 500 mg 8-17 tablet by ity o f tablet 00:00: mouth [place] 00 every 12 Medical (twelve) Branch hours. metroNIDAZO 2021-0 Yes [id number] 500mg Take 1 Univers LE 500 mg 8-17 tablet by ity o f tablet 00:00: mouth [place] 00 every 12 Medical (twelve) Branch hours. metroNIDAZO 2021-0 Yes [id number] 500mg Take 1 Univers LE 500 mg 8-17 tablet by ity o f tablet 00:00: mouth [place] 00 every 12 Medical (twelve) Branch hours. metroNIDAZO 2021-0 Yes [id number] 500mg Take 1 Univers LE 500 mg 8-17 tablet by ity o f tablet 00:00: mouth [place] 00 every 12 Medical (twelve) Branch hours. metroNIDAZO 2021-0 Yes [id number] 500mg Take 1 Univers LE 500 mg 8-17 tablet by ity o f tablet 00:00: mouth [place] 00 every 12 Medical (twelve) Branch hours. metroNIDAZO 2021-0 Yes [id number] 500mg Take 1 Univers LE 500 mg 8-17 tablet by ity o f tablet 00:00: mouth [place] 00 every 12 Medical (twelve) Branch hours. metroNIDAZO 2021-0 Yes [id number] 500mg Take 1 Univers LE 500 mg 8-17 tablet by ity o f tablet 00:00: mouth [place] 00 every 12 Medical (twelve) Branch hours. metroNIDAZO 2-0 Yes [id number] 500mg Take 1 Univers LE 500 mg 8-17 tablet by ity o f tablet 00:00: mouth [place] 00 every 12 Medical (twelve) Branch hours. metroNIDAZO 2-0 Yes [id number] 500mg Take 1 Univers LE 500 mg 8-17 tablet by ity o f tablet 00:00: mouth [place] 00 every 12 Medical (twelve) Branch hours. metroNIDAZO 2-0 Yes [id number] 500mg Take 1 Univers LE 500 mg 8-17 tablet by ity o f tablet 00:00: mouth [place] 00 every 12 Medical (twelve) Branch hours. metroNIDAZO 2021-0 Yes [id number] 500mg Take 1 Univers LE 500 mg 8-17 tablet by ity o f tablet 00:00: mouth [place] 00 every 12 Medical (twelve) Branch hours. metroNIDAZO 2021-0 Yes [id number] 500mg Take 1 Univers LE 500 mg 8-17 tablet by ity o f tablet 00:00: mouth [place] 00 every 12 Medical (twelve) Branch hours. metroNIDAZO 2021-0 Yes [id number] 500mg Take 1 Univers LE 500 mg 8-17 tablet by ity o f tablet 00:00: mouth [place] 00 every 12 Medical (twelve) Branch hours. metroNIDAZO 2021-0 Yes [id number] 500mg Take 1 Univers LE 500 mg 8-17 tablet by ity o f tablet 00:00: mouth [place] 00 every 12 Medical (twelve) Branch hours. metroNIDAZO 2021-0 Yes [id number] 500mg Take 1 Univers LE 500 mg 8-17 tablet by ity o f tablet 00:00: mouth [place] 00 every 12 Medical (twelve) Branch hours. metroNIDAZO 2021-0 Yes [id number] 500mg Take 1 Univers LE 500 mg 8-17 tablet by ity o f tablet 00:00: mouth [place] 00 every 12 Medical (twelve) Branch hours. metroNIDAZO 2021-0 Yes [id number] 500mg Take 1 Univers LE 500 mg 8-17 tablet by ity o f tablet 00:00: mouth [place] 00 every 12 Medical (twelve) Branch hours. metroNIDAZO 2021-0 Yes [id number] 500mg Take 1 Univers LE 500 mg 8-17 tablet by ity o f tablet 00:00: mouth [place] 00 every 12 Medical (twelve) Branch hours. metroNIDAZO 2-0 Yes [id number] 500mg Take 1 Univers LE 500 mg 8-17 tablet by ity o f tablet 00:00: mouth [place] 00 every 12 Medical (twelve) Branch hours. metroNIDAZO 2-0 Yes [id number] 500mg Take 1 Univers LE 500 mg 8-17 tablet by ity o f tablet 00:00: mouth [place] 00 every 12 Medical (twelve) Branch hours. metroNIDAZO 2021-0 Yes [id number] 500mg Take 1 Univers LE 500 mg 8-17 tablet by ity o f tablet 00:00: mouth [place] 00 every 12 Medical (twelve) Branch hours. metroNIDAZO 2021-0 Yes [id number] 500mg Take 1 Univers LE 500 mg 8-17 tablet by ity o f tablet 00:00: mouth [place] 00 every 12 Medical (twelve) Branch hours. metroNIDAZO 2021-0 Yes [id number] 500mg Take 1 Univers LE 500 mg 8-17 tablet by ity o f tablet 00:00: mouth [place] 00 every 12 Medical (twelve) Branch hours. metroNIDAZO 2021-0 Yes [id number] 500mg Take 1 Univers LE 500 mg 8-17 tablet by ity o f tablet 00:00: mouth [place] 00 every 12 Medical (twelve) Branch hours. metroNIDAZO 2021-0 Yes [id number] 500mg Take 1 Univers LE 500 mg 8-17 tablet by ity o f tablet 00:00: mouth [place] 00 every 12 Medical (twelve) Branch hours. metroNIDAZO 2021-0 Yes [id number] 500mg Take 1 Univers LE 500 mg 8-17 tablet by ity o f tablet 00:00: mouth [place] 00 every 12 Medical (twelve) Branch hours. metroNIDAZO 2021-0 2021- No [id number] 500mg Take 1 Univers LE 500 mg 6-23 08-17 tablet by ity of tablet 00:00: 00:00 mouth [place] 00 :00 every 12 Medical (twelve) Branch hours. metroNIDAZO 2021-0 2021- No [id number] 500mg Take 1 Univers LE 500 mg 6-23 08-17 tablet by ity of tablet 00:00: 00:00 mouth [place] 00 :00 every 12 Medical (twelve) Branch hours. norgestimat 2021-0 Yes [id number] 1{tbl} Take 1 Univers e-ethinyl 5-16 tablet by ity o f estradioL 00:00: mouth [place] (ESTARYLLA) 00 daily. Medica l 0.25-35 Branch mg-mcg per tablet norgestimat 2021-0 Yes [id number] 1{tbl} Take 1 Univers e-ethinyl 5-16 tablet by ity o f estradioL 00:00: mouth [place] (ESTARYLLA) 00 daily. Medica l 0.25-35 Branch mg-mcg per tablet norgestimat Yes [id number] 1{tbl} Take 1 Univers e-ethinyl 5-16 tablet by ity o f estradioL 00:00: mouth [place] (ESTARYLLA) 00 daily. Medica l 0.25-35 Branch mg-mcg per tablet norgestimat 0 Yes [id number] 1{tbl} Take 1 Univers e-ethinyl 5-16 tablet by ity o f estradioL 00:00: mouth [place] (ESTARYLLA) 00 daily. Medica l 0.25-35 Branch mg-mcg per tablet norgestimat Yes [id number] 1{tbl} Take 1 Univers e-ethinyl 5-16 tablet by ity o f estradioL 00:00: mouth [place] (ESTARYLLA) 00 daily. Medica l 0.25-35 Branch mg-mcg per tablet norgestimat Yes [id number] 1{tbl} Take 1 Univers e-ethinyl 5-16 tablet by ity o f estradioL 00:00: mouth [place] (ESTARYLLA) 00 daily. Medica l 0.25-35 Branch mg-mcg per tablet norgestimat Yes [id number] 1{tbl} Take 1 Univers e-ethinyl 5-16 tablet by ity o f estradioL 00:00: mouth [place] (ESTARYLLA) 00 daily. Medica l 0.25-35 Branch mg-mcg per tablet norgestimat 0 Yes [id number] 1{tbl} Take 1 Univers e-ethinyl 5-16 tablet by ity o f estradioL 00:00: mouth [place] (ESTARYLLA) 00 daily. Medica l 0.25-35 Branch mg-mcg per tablet norgestimat Yes [id number] 1{tbl} Take 1 Univers e-ethinyl 5-16 tablet by ity o f estradioL 00:00: mouth [place] (ESTARYLLA) 00 daily. Medica l 0.25-35 Branch mg-mcg per tablet norgestimat 0 Yes [id number] 1{tbl} Take 1 Univers e-ethinyl 5-16 tablet by ity o f estradioL 00:00: mouth [place] (ESTARYLLA) 00 daily. Medica l 0.25-35 Branch mg-mcg per tablet norgestimat Yes [id number] 1{tbl} Take 1 Univers e-ethinyl 5-16 tablet by ity o f estradioL 00:00: mouth [place] (ESTARYLLA) 00 daily. Medica l 0.25-35 Branch mg-mcg per tablet norgestimat Yes [id number] 1{tbl} Take 1 Univers e-ethinyl 5-16 tablet by ity o f estradioL 00:00: mouth [place] (ESTARYLLA) 00 daily. Medica l 0.25-35 Branch mg-mcg per tablet norgestimat Yes [id number] 1{tbl} Take 1 Univers e-ethinyl 5-16 tablet by ity o f estradioL 00:00: mouth [place] (ESTARYLLA) 00 daily. Medica l 0.25-35 Branch mg-mcg per tablet norgestimat Yes [id number] 1{tbl} Take 1 Univers e-ethinyl 5-16 tablet by ity o f estradioL 00:00: mouth [place] (ESTARYLLA) 00 daily. Medica l 0.25-35 Branch mg-mcg per tablet norgestimat Yes [id number] 1{tbl} Take 1 Univers e-ethinyl 5-16 tablet by ity o f estradioL 00:00: mouth [place] (ESTARYLLA) 00 daily. Medica l 0.25-35 Branch mg-mcg per tablet norgestimat Yes [id number] 1{tbl} Take 1 Univers e-ethinyl 5-16 tablet by ity o f estradioL 00:00: mouth [place] (ESTARYLLA) 00 daily. Medica l 0.25-35 Branch mg-mcg per tablet norgestimat Yes [id number] 1{tbl} Take 1 Univers e-ethinyl 5-16 tablet by ity o f estradioL 00:00: mouth [place] (ESTARYLLA) 00 daily. Medica l 0.25-35 Branch mg-mcg per tablet norgestimat Yes [id number] 1{tbl} Take 1 Univers e-ethinyl 5-16 tablet by ity o f estradioL 00:00: mouth [place] (ESTARYLLA) 00 daily. Medica l 0.25-35 Branch mg-mcg per tablet norgestimat Yes [id number] 1{tbl} Take 1 Univers e-ethinyl 5-16 tablet by ity o f estradioL 00:00: mouth [place] (ESTARYLLA) 00 daily. Medica l 0.25-35 Branch mg-mcg per tablet norgestimat Yes [id number] 1{tbl} Take 1 Univers e-ethinyl 5-16 tablet by ity o f estradioL 00:00: mouth [place] (ESTARYLLA) 00 daily. Medica l 0.25-35 Branch mg-mcg per tablet norgestimat Yes [id number] 1{tbl} Take 1 Univers e-ethinyl 5-16 tablet by ity o f estradioL 00:00: mouth [place] (ESTARYLLA) 00 daily. Medica l 0.25-35 Branch mg-mcg per tablet norgestimat Yes [id number] 1{tbl} Take 1 Univers e-ethinyl 5-16 tablet by ity o f estradioL 00:00: mouth [place] (ESTARYLLA) 00 daily. Medica l 0.25-35 Branch mg-mcg per tablet norgestimat 2022- No [id number] 1{tbl} Take 1 Univers e-ethinyl 5-16 03-30 tablet by ity of estradioL 00:00: 00:00 mouth [place] (ESTARYLLA) 00 :00 daily. Medica l 0.25-35 Branch mg-mcg per tablet norgestimat 2022- No [id number] 1{tbl} Take 1 Univers e-ethinyl 5-16 03-30 tablet by ity of estradioL 00:00: 00:00 mouth [place] (ESTARYLLA) 00 :00 daily. Medica l 0.25-35 Branch mg-mcg per tablet metroNIDAZO 0 2- No [id number] 500mg Take 1 Univers LE 500 mg 4-26 08-17 tablet by ity of tablet 00:00: 00:00 mouth [place] 00 :00 every 12 Medical (twelve) Branch hours. metroNIDAZO 2022-0 2022- No [id number] 500mg Take 1 [facility] LE 500 mg 4-26 08-17 tablet by [facility] of tablet 00:00: 00:00 mouth [place] 00 :00 every 12 Medical (twelve) Branch hours. BIOTIN ORAL 2022-0 Yes Take by [facility] vers 4-25 mouth. ity of 08:19: [address] ZINC ORAL 2022-0 Yes Take by [facility] rs 4-25 mouth. ity of 08:19: [address] BIOTIN ORAL 2022-0 Yes Take by [facility] vers 4-25 mouth. ity of 08:19: [address] ZINC ORAL 2022-0 Yes Take by [facility] rs 4-25 mouth. ity of 08:19: [address] BIOTIN ORAL 2022-0 Yes Take by [facility] vers 4-25 mouth. ity of 08:19: [address] ZINC ORAL 2022-0 Yes Take by [facility] rs 4-25 mouth. ity of 08:19: [address] BIOTIN ORAL 2022-0 Yes Take by [facility] vers 4-25 mouth. ity of 08:19: [address] ZINC ORAL 2022-0 Yes Take by [facility] rs 4-25 mouth. ity of 08:19: [address] BIOTIN ORAL 2022-0 Yes Take by [facility] vers 4-25 mouth. ity of 08:19: [address] ZINC ORAL 2022-0 Yes Take by [facility] rs 4-25 mouth. ity of 08:19: [address] metroNIDAZO 2022-0 2022- No [id number] 500mg Take 1 [facility] LE 500 mg 3-25 08-17 tablet by [facility] of tablet 00:00: 00:00 mouth [place] 00 :00 every 12 Medical (twelve) Branch hours. metroNIDAZO 2022-0 2022- No [id number] 500mg Take 1 [facility] LE 500 mg 3-25 08-17 tablet by it[facility] of tablet 00:00: 00:00 mouth [place] 00 :00 every 12 Medical (twelve) Branch hours. clotrimazol 2020-0 Yes [id number] Apply to [facility] e-betametha 12-22 area(s) 2 ity of sone cream 00:00: (two) [place] 00 times Medical daily. Branch clotrimazol 2020-0 Yes [id number] Apply to [facility] e-betametha 9-29 area(s) 2 ity of sone cream 00:00: (two) [place] 00 times Medical daily. Branch clotrimazol 2020-0 Yes [id number] Apply to [facility] e-betametha 9-29 area(s) 2 ity of sone cream 00:00: (two) [place] 00 times Medical daily. Branch clotrimazol 2020-0 Yes [id number] Apply to [facility] e-betametha 9-29 area(s) 2 ity of sone cream 00:00: (two) [place] 00 times Medical daily. Branch clotrimazol 2020-0 Yes [id number] Apply to [facility] e-betametha 9-29 area(s) 2 ity of sone cream 00:00: (two) [place] 00 times Medical daily. Branch clotrimazol 2020-0 Yes [id number] Apply to [facility] e-betametha 9-29 area(s) 2 ity of sone cream 00:00: (two) [place] 00 times Medical daily. Branch clotrimazol 2020-0 Yes [id number] Apply to [facility] e-betametha 9-29 area(s) 2 ity of sone cream 00:00: (two) [place] 00 times Medical daily. Branch clotrimazol 2020-0 Yes [id number] Apply to [facility] e-betametha 9-29 area(s) 2 ity of sone cream 00:00: (two) [place] 00 times Medical daily. Branch clotrimazol 2020-0 Yes [id number] Apply to [facility] e-betametha 9-29 area(s) 2 ity of sone cream 00:00: (two) [place] 00 times Medical daily. Branch clotrimazol 2020-0 Yes [id number] Apply to [facility] e-betametha 9-29 area(s) 2 ity of sone cream 00:00: (two) [place] 00 times Medical daily. Branch clotrimazol 2020-0 Yes [id number] Apply to [facility] e-betametha 9-29 area(s) 2 ity of sone cream 00:00: (two) [place] 00 times Medical daily. Branch clotrimazol 2020-0 Yes [id number] Apply to [facility] e-betametha 9-29 area(s) 2 ity of sone cream 00:00: (two) [place] 00 times Medical daily. Branch clotrimazol 2020-0 Yes [id number] Apply to [facility] e-betametha 9-29 area(s) 2 ity of sone cream 00:00: (two) [place] 00 times Medical daily. Branch clotrimazol 2020-0 Yes [id number] Apply to [facility] e-betametha 9-29 area(s) 2 ity of sone cream 00:00: (two) [place] 00 times Medical daily. Branch clotrimazol 2020-0 Yes [id number] Apply to [facility] e-betametha 9-29 area(s) 2 ity of sone cream 00:00: (two) [place] 00 times Medical daily. Branch clotrimazol 2020-0 Yes [id number] Apply to [facility] e-betametha 9-29 area(s) 2 ity of sone cream 00:00: (two) [place] 00 times Medical daily. Branch clotrimazol 2020-0 Yes [id number] Apply to [facility] e-betametha 9-29 area(s) 2 ity of sone cream 00:00: (two) [place] 00 times Medical daily. Branch clotrimazol 2020-0 Yes [id number] Apply to [facility] e-betametha 9-29 area(s) 2 ity of sone cream 00:00: (two) [place] 00 times Medical daily. Branch clotrimazol 2020-0 Yes [id number] Apply to [facility] e-betametha 9-29 area(s) 2 ity of sone cream 00:00: (two) [place] 00 times Medical daily. Branch clotrimazol 2020-0 Yes [id number] Apply to [facility] e-betametha 9-29 area(s) 2 ity of sone cream 00:00: (two) [place] 00 times Medical daily. Branch clotrimazol 2020-0 Yes [id number] Apply to [facility] e-betametha 9-29 area(s) 2 ity of sone cream 00:00: (two) [place] 00 times Medical daily. Branch clotrimazol 2020-0 Yes [id number] Apply to [facility] e-betametha 9-29 area(s) 2 ity of sone cream 00:00: (two) [place] 00 times Medical daily. Branch clotrimazol 2020-0 Yes [id number] Apply to [facility] e-betametha 9-29 area(s) 2 ity of sone cream 00:00: (two) [place] 00 times Medical daily. Branch clotrimazol 2020-0 Yes [id number] Apply to [facility] e-betametha 9-29 area(s) 2 ity of sone cream 00:00: (two) [place] 00 times Medical daily. Branch clotrimazol 2020-0 Yes [id number] Apply to [facility] e-betametha 9-29 area(s) 2 ity of sone cream 00:00: (two) [place] 00 times Medical daily. Branch clotrimazol 2020-0 Yes [id number] Apply to [facility] e-betametha 9-29 area(s) 2 ity of sone cream 00:00: (two) [place] 00 times Medical daily. Branch clotrimazol 2020-0 Yes [id number] Apply to [facility] e-betametha 9-29 area(s) 2 ity of sone cream 00:00: (two) [place] 00 times Medical daily. Branch clotrimazol 2020-0 Yes [id number] Apply to [facility] e-betametha 9-29 area(s) 2 ity of sone cream 00:00: (two) [place] 00 times Medical daily. Branch clotrimazol 2020-0 Yes [id number] Apply to [facility] e-betametha 9-29 area(s) 2 ity of sone cream 00:00: (two) [place] 00 times Medical daily. Branch clotrimazol 2020-0 Yes [id number] Apply to [facility] e-betametha 9-29 area(s) 2 ity of sone cream 00:00: (two) [place] 00 times Medical daily. Branch clotrimazol 2020-0 Yes [id number] Apply to [facility] e-betametha 9-29 area(s) 2 ity of sone cream 00:00: (two) [place] 00 times Medical daily. Branch clotrimazol 2020-0 Yes [id number] Apply to [facility] e-betametha 9-29 area(s) 2 ity of sone cream 00:00: (two) [place] 00 times Medical daily. Branch 2020-0 Yes [id number] 1{tbl} Take 1 [facility] vitamin 1-31 102 tablet by ity of w/FA tablet 00:00: mouth [place] 00 daily. Medical Branch docusate 2020-0 Yes [id number] 240mg Take 1 [facility] calcium 240 1-31 102 capsule by it y of mg capsule 00:00: mouth once [place] 00 daily as Medical needed for Branch Constipati on. ferrous 2020-0 Yes [id number] 325mg Take 1 [facility] sulfate 325 1-31 102 tablet by ity of mg (65 mg 00:00: mouth 2 [place] iron) 00 (two) Medical tablet times Branch daily. ibuprofen 2020-0 Yes [id number] 600mg Take 1 [facility] 600 mg 1-31 102 tablet by ity of tablet 00:00: mouth [place] 00 every 6 Medical (six) Branch hours as needed (Pain). Take with food or milk. 2019-0 Yes [id number] 1{tbl} Take 1 [facility] vitamin 1-31 102 tablet by ity of w/FA tablet 00:00: mouth [place] 00 daily. Medical Branch docusate 2020-0 Yes [id number] 240mg Take 1 [facility] calcium 240 1-31 102 capsule by it y of mg capsule 00:00: mouth once [place] 00 daily as Medical needed for Branch Constipati on. ferrous 2020-0 Yes [id number] 325mg Take 1 [facility] sulfate 325 1-31 102 tablet by ity of mg (65 mg 00:00: mouth 2 [place] iron) 00 (two) Medical tablet times Branch daily. ibuprofen 2020-0 Yes [id number] 600mg Take 1 [facility] 600 mg 1-31 102 tablet by ity of tablet 00:00: mouth [place] 00 every 6 Medical (six) Branch hours as needed (Pain). Take with food or milk. 2020-0 Yes [id number] 1{tbl} Take 1 [facility] vitamin 1-31 102 tablet by ity of w/FA tablet 00:00: mouth [place] 00 daily. Medical Branch docusate 2020-0 Yes [id number] 240mg Take 1 [facility] calcium 240 1-31 102 capsule by it y of mg capsule 00:00: mouth once [place] 00 daily as Medical needed for Branch Constipati on. ferrous 2020-0 Yes [id number] 325mg Take 1 [facility] sulfate 325 1-31 102 tablet by ity of mg (65 mg 00:00: mouth 2 [place] iron) 00 (two) Medical tablet times Branch daily. ibuprofen 2020-0 Yes [id number] 600mg Take 1 [facility] 600 mg 1-31 102 tablet by ity of tablet 00:00: mouth [place] 00 every 6 Medical (six) Branch hours as needed (Pain). Take with food or milk. 2020-0 Yes [id number] 1{tbl} Take 1 [facility] vitamin 1-31 102 tablet by ity of w/FA tablet 00:00: mouth [place] 00 daily. Medical Branch docusate 2020-0 Yes [id number] 240mg Take 1 [facility] calcium 240 1-31 102 capsule by it y of mg capsule 00:00: mouth once [place] 00 daily as Medical needed for Branch Constipati on. ferrous 2020-0 Yes [id number] 325mg Take 1 [facility] sulfate 325 1-31 102 tablet by ity of mg (65 mg 00:00: mouth 2 [place] iron) 00 (two) Medical tablet times Branch daily. ibuprofen 2020-0 Yes [id number] 600mg Take 1 [facility] 600 mg 1-31 102 tablet by ity of tablet 00:00: mouth [place] 00 every 6 Medical (six) Branch hours as needed (Pain). Take with food or milk. 2020-0 Yes [id number] 1{tbl} Take 1 [facility] vitamin 1-31 102 tablet by ity of w/FA tablet 00:00: mouth [place] 00 daily. Medical Branch docusate 2020-0 Yes [id number] 240mg Take 1 [facility] calcium 240 1-31 102 capsule by it y of mg capsule 00:00: mouth once [place] 00 daily as Medical needed for Branch Constipati on. ferrous 2020-0 Yes [id number] 325mg Take 1 [facility] sulfate 325 1-31 102 tablet by ity of mg (65 mg 00:00: mouth 2 [place] iron) 00 (two) Medical tablet times Branch daily. ibuprofen 2020-0 Yes [id number] 600mg Take 1 [facility] 600 mg 1-31 102 tablet by ity of tablet 00:00: mouth [place] 00 every 6 Medical (six) Branch hours as needed (Pain). Take with food or milk. 2020-0 Yes [id number] 1{tbl} Take 1 [facility] vitamin 1-31 102 tablet by ity of w/FA tablet 00:00: mouth [place] 00 daily. Medical Branch docusate 2020-0 Yes [id number] 240mg Take 1 [facility] calcium 240 1-31 102 capsule by it y of mg capsule 00:00: mouth once [place] 00 daily as Medical needed for Branch Constipati on. ferrous 2020-0 Yes [id number] 325mg Take 1 [facility] sulfate 325 1-31 102 tablet by ity of mg (65 mg 00:00: mouth 2 [place] iron) 00 (two) Medical tablet times Branch daily. ibuprofen 2020-0 Yes [id number] 600mg Take 1 [facility] 600 mg 1-31 102 tablet by ity of tablet 00:00: mouth [place] 00 every 6 Medical (six) Branch hours as needed (Pain). Take with food or milk. 2020-0 Yes [id number] 1{tbl} Take 1 [facility] vitamin 1-31 102 tablet by ity of w/FA tablet 00:00: mouth [place] 00 daily. Medical Branch docusate 2020-0 Yes [id number] 240mg Take 1 [facility] calcium 240 1-31 102 capsule by it y of mg capsule 00:00: mouth once [place] 00 daily as Medical needed for Branch Constipati on. ferrous 2020-0 Yes [id number] 325mg Take 1 [facility] sulfate 325 1-31 102 tablet by ity of mg (65 mg 00:00: mouth 2 [place] iron) 00 (two) Medical tablet times Branch daily. ibuprofen 2020-0 Yes [id number] 600mg Take 1 [facility] 600 mg 1-31 102 tablet by ity of tablet 00:00: mouth [place] 00 every 6 Medical (six) Branch hours as needed (Pain). Take with food or milk. 2020-0 Yes [id number] 1{tbl} Take 1 [facility] vitamin 1-31 102 tablet by ity of w/FA tablet 00:00: mouth [place] 00 daily. Medical Branch docusate 2020-0 Yes [id number] 240mg Take 1 [facility] calcium 240 1-31 102 capsule by it y of mg capsule 00:00: mouth once [place] 00 daily as Medical needed for Branch Constipati on. ferrous 2020-0 Yes [id number] 325mg Take 1 [facility] sulfate 325 1-31 102 tablet by ity of mg (65 mg 00:00: mouth 2 [place] iron) 00 (two) Medical tablet times Branch daily. ibuprofen 2020-0 Yes [id number] 600mg Take 1 [facility] 600 mg 1-31 102 tablet by ity of tablet 00:00: mouth [place] 00 every 6 Medical (six) Branch hours as needed (Pain). Take with food or milk. 2020-0 Yes [id number] 1{tbl} Take 1 [facility] vitamin 1-31 102 tablet by ity of w/FA tablet 00:00: mouth [place] 00 daily. Medical Branch docusate 2020-0 Yes [id number] 240mg Take 1 [facility] calcium 240 1-31 102 capsule by it y of mg capsule 00:00: mouth once [place] 00 daily as Medical needed for Branch Constipati on. ferrous 2020-0 Yes [id number] 325mg Take 1 [facility] sulfate 325 1-31 102 tablet by ity of mg (65 mg 00:00: mouth 2 [place] iron) 00 (two) Medical tablet times Branch daily. ibuprofen 2020-0 Yes [id number] 600mg Take 1 [facility] 600 mg 1-31 102 tablet by ity of tablet 00:00: mouth [place] 00 every 6 Medical (six) Branch hours as needed (Pain). Take with food or milk. 2020-0 Yes [id number] 1{tbl} Take 1 [facility] vitamin 1-31 102 tablet by ity of w/FA tablet 00:00: mouth [place] 00 daily. Medical Branch docusate 2020-0 Yes [id number] 240mg Take 1 [facility] calcium 240 1-31 102 capsule by it y of mg capsule 00:00: mouth once [place] 00 daily as Medical needed for Branch Constipati on. ferrous 2020-0 Yes [id number] 325mg Take 1 [facility] sulfate 325 1-31 102 tablet by ity of mg (65 mg 00:00: mouth 2 [place] iron) 00 (two) Medical tablet times Branch daily. ibuprofen 2020-0 Yes [id number] 600mg Take 1 [facility] 600 mg 1-31 102 tablet by ity of tablet 00:00: mouth [place] 00 every 6 Medical (six) Branch hours as needed (Pain). Take with food or milk. 2020-0 Yes [id number] 1{tbl} Take 1 [facility] vitamin 1-31 102 tablet by ity of w/FA tablet 00:00: mouth [place] 00 daily. Medical Branch docusate 2020-0 Yes [id number] 240mg Take 1 [facility] calcium 240 1-31 102 capsule by it y of mg capsule 00:00: mouth once [place] 00 daily as Medical needed for Branch Constipati on. ferrous 2020-0 Yes [id number] 325mg Take 1 [facility] sulfate 325 1-31 102 tablet by ity of mg (65 mg 00:00: mouth 2 [place] iron) 00 (two) Medical tablet times Branch daily. ibuprofen 2020-0 Yes [id number] 600mg Take 1 [facility] 600 mg 1-31 102 tablet by ity of tablet 00:00: mouth [place] 00 every 6 Medical (six) Branch hours as needed (Pain). Take with food or milk. 2020-0 Yes [id number] 1{tbl} Take 1 [facility] vitamin 1-31 102 tablet by ity of w/FA tablet 00:00: mouth [place] 00 daily. Medical Branch docusate 2020-0 Yes [id number] 240mg Take 1 [facility] calcium 240 1-31 102 capsule by it y of mg capsule 00:00: mouth once [place] 00 daily as Medical needed for Branch Constipati on. ferrous 2020-0 Yes [id number] 325mg Take 1 [facility] sulfate 325 1-31 102 tablet by ity of mg (65 mg 00:00: mouth 2 [place] iron) 00 (two) Medical tablet times Branch daily. ibuprofen 2020-0 Yes [id number] 600mg Take 1 [facility] 600 mg 1-31 102 tablet by ity of tablet 00:00: mouth [place] 00 every 6 Medical (six) Branch hours as needed (Pain). Take with food or milk. 2020-0 Yes [id number] 1{tbl} Take 1 [facility] vitamin 1-31 102 tablet by ity of w/FA tablet 00:00: mouth [place] 00 daily. Medical Branch docusate 2020-0 Yes [id number] 240mg Take 1 [facility] calcium 240 1-31 102 capsule by it y of mg capsule 00:00: mouth once [place] 00 daily as Medical needed for Branch Constipati on. ferrous 2020-0 Yes [id number] 325mg Take 1 [facility] sulfate 325 1-31 102 tablet by ity of mg (65 mg 00:00: mouth 2 [place] iron) 00 (two) Medical tablet times Branch daily. ibuprofen 2020-0 Yes [id number] 600mg Take 1 [facility] 600 mg 1-31 102 tablet by ity of tablet 00:00: mouth [place] 00 every 6 Medical (six) Branch hours as needed (Pain). Take with food or milk. 2020-0 Yes [id number] 1{tbl} Take 1 [facility] vitamin 1-31 102 tablet by ity of w/FA tablet 00:00: mouth [place] 00 daily. Medical Branch docusate 2020-0 Yes [id number] 240mg Take 1 [facility] calcium 240 1-31 102 capsule by it y of mg capsule 00:00: mouth once [place] 00 daily as Medical needed for Branch Constipati on. ferrous 2020-0 Yes [id number] 325mg Take 1 [facility] sulfate 325 1-31 102 tablet by ity of mg (65 mg 00:00: mouth 2 [place] iron) 00 (two) Medical tablet times Branch daily. ibuprofen 2020-0 Yes [id number] 600mg Take 1 [facility] 600 mg 1-31 102 tablet by ity of tablet 00:00: mouth [place] 00 every 6 Medical (six) Branch hours as needed (Pain). Take with food or milk. 2019-0 Yes [id number] 1{tbl} Take 1 [facility] vitamin 1-31 102 tablet by ity of w/FA tablet 00:00: mouth [place] 00 daily. Medical Branch docusate 2020-0 Yes [id number] 240mg Take 1 [facility] calcium 240 1-31 102 capsule by it y of mg capsule 00:00: mouth once [place] 00 daily as Medical needed for Branch Constipati on. ferrous 2020-0 Yes [id number] 325mg Take 1 [facility] sulfate 325 1-31 102 tablet by ity of mg (65 mg 00:00: mouth 2 [place] iron) 00 (two) Medical tablet times Branch daily. ibuprofen 2020-0 Yes [id number] 600mg Take 1 [facility] 600 mg 1-31 102 tablet by ity of tablet 00:00: mouth [place] 00 every 6 Medical (six) Branch hours as needed (Pain). Take with food or milk. 2020-0 Yes [id number] 1{tbl} Take 1 [facility] vitamin 1-31 102 tablet by ity of w/FA tablet 00:00: mouth [place] 00 daily. Medical Branch docusate 2020-0 Yes [id number] 240mg Take 1 [facility] calcium 240 1-31 102 capsule by it y of mg capsule 00:00: mouth once [place] 00 daily as Medical needed for Branch Constipati on. ferrous 2020-0 Yes [id number] 325mg Take 1 [facility] sulfate 325 1-31 102 tablet by ity of mg (65 mg 00:00: mouth 2 [place] iron) 00 (two) Medical tablet times Branch daily. ibuprofen 2020-0 Yes [id number] 600mg Take 1 [facility] 600 mg 1-31 102 tablet by ity of tablet 00:00: mouth [place] 00 every 6 Medical (six) Branch hours as needed (Pain). Take with food or milk. 2020-0 Yes [id number] 1{tbl} Take 1 [facility] vitamin 1-31 102 tablet by ity of w/FA tablet 00:00: mouth [place] 00 daily. Medical Branch docusate 2020-0 Yes [id number] 240mg Take 1 [facility] calcium 240 1-31 102 capsule by it y of mg capsule 00:00: mouth once [place] 00 daily as Medical needed for Branch Constipati on. ferrous 2020-0 Yes [id number] 325mg Take 1 [facility] sulfate 325 1-31 102 tablet by ity of mg (65 mg 00:00: mouth 2 [place] iron) 00 (two) Medical tablet times Branch daily. ibuprofen 2020-0 Yes [id number] 600mg Take 1 [facility] 600 mg 1-31 102 tablet by ity of tablet 00:00: mouth [place] 00 every 6 Medical (six) Branch hours as needed (Pain). Take with food or milk. 2020-0 Yes [id number] 1{tbl} Take 1 [facility] vitamin 1-31 102 tablet by ity of w/FA tablet 00:00: mouth [place] 00 daily. Medical Branch docusate 2020-0 Yes [id number] 240mg Take 1 [facility] calcium 240 1-31 102 capsule by it y of mg capsule 00:00: mouth once [place] 00 daily as Medical needed for Branch Constipati on. ferrous 2020-0 Yes [id number] 325mg Take 1 [facility] sulfate 325 1-31 102 tablet by ity of mg (65 mg 00:00: mouth 2 [place] iron) 00 (two) Medical tablet times Branch daily. ibuprofen 2020-0 Yes [id number] 600mg Take 1 [facility] 600 mg 1-31 102 tablet by ity of tablet 00:00: mouth [place] 00 every 6 Medical (six) Branch hours as needed (Pain). Take with food or milk. 2020-0 Yes [id number] 1{tbl} Take 1 [facility] vitamin 1-31 102 tablet by ity of w/FA tablet 00:00: mouth [place] 00 daily. Medical Branch docusate 2020-0 Yes [id number] 240mg Take 1 [facility] calcium 240 1-31 102 capsule by it y of mg capsule 00:00: mouth once [place] 00 daily as Medical needed for Branch Constipati on. ferrous 2020-0 Yes [id number] 325mg Take 1 [facility] sulfate 325 1-31 102 tablet by ity of mg (65 mg 00:00: mouth 2 [place] iron) 00 (two) Medical tablet times Branch daily. ibuprofen 2020-0 Yes [id number] 600mg Take 1 [facility] 600 mg 1-31 102 tablet by ity of tablet 00:00: mouth [place] 00 every 6 Medical (six) Branch hours as needed (Pain). Take with food or milk. 2020-0 Yes [id number] 1{tbl} Take 1 [facility] vitamin 1-31 102 tablet by ity of w/FA tablet 00:00: mouth [place] 00 daily. Medical Branch docusate 2020-0 Yes [id number] 240mg Take 1 [facility] calcium 240 1-31 102 capsule by it y of mg capsule 00:00: mouth once [place] 00 daily as Medical needed for Branch Constipati on. ferrous 2020-0 Yes [id number] 325mg Take 1 [facility] sulfate 325 1-31 102 tablet by ity of mg (65 mg 00:00: mouth 2 [place] iron) 00 (two) Medical tablet times Branch daily. ibuprofen 2020-0 Yes [id number] 600mg Take 1 [facility] 600 mg 1-31 102 tablet by ity of tablet 00:00: mouth [place] 00 every 6 Medical (six) Branch hours as needed (Pain). Take with food or milk. 2020-0 Yes [id number] 1{tbl} Take 1 [facility] vitamin 1-31 102 tablet by ity of w/FA tablet 00:00: mouth [place] 00 daily. Medical Branch docusate 2020-0 Yes [id number] 240mg Take 1 [facility] calcium 240 1-31 102 capsule by it y of mg capsule 00:00: mouth once [place] 00 daily as Medical needed for Branch Constipati on. ferrous 2020-0 Yes [id number] 325mg Take 1 [facility] sulfate 325 1-31 102 tablet by ity of mg (65 mg 00:00: mouth 2 [place] iron) 00 (two) Medical tablet times Branch daily. ibuprofen 2020-0 Yes [id number] 600mg Take 1 [facility] 600 mg 1-31 102 tablet by ity of tablet 00:00: mouth [place] 00 every 6 Medical (six) Branch hours as needed (Pain). Take with food or milk. 2020-0 Yes [id number] 1{tbl} Take 1 [facility] vitamin 1-31 102 tablet by ity of w/FA tablet 00:00: mouth [place] 00 daily. Medical Branch docusate 2020-0 Yes [id number] 240mg Take 1 [facility] calcium 240 1-31 102 capsule by it y of mg capsule 00:00: mouth once [place] 00 daily as Medical needed for Branch Constipati on. ferrous 2020-0 Yes [id number] 325mg Take 1 [facility] sulfate 325 1-31 102 tablet by ity of mg (65 mg 00:00: mouth 2 [place] iron) 00 (two) Medical tablet times Branch daily. ibuprofen 2020-0 Yes [id number] 600mg Take 1 [facility] 600 mg 1-31 102 tablet by ity of tablet 00:00: mouth [place] 00 every 6 Medical (six) Branch hours as needed (Pain). Take with food or milk. 2019-0 Yes [id number] 1{tbl} Take 1 [facility] vitamin 1-31 102 tablet by ity of w/FA tablet 00:00: mouth [place] 00 daily. Medical Branch docusate 2020-0 Yes [id number] 240mg Take 1 [facility] calcium 240 1-31 102 capsule by it y of mg capsule 00:00: mouth once [place] 00 daily as Medical needed for Branch Constipati on. ferrous 2020-0 Yes [id number] 325mg Take 1 [facility] sulfate 325 1-31 102 tablet by ity of mg (65 mg 00:00: mouth 2 [place] iron) 00 (two) Medical tablet times Branch daily. ibuprofen 2020-0 Yes [id number] 600mg Take 1 [facility] 600 mg 1-31 102 tablet by ity of tablet 00:00: mouth [place] 00 every 6 Medical (six) Branch hours as needed (Pain). Take with food or milk. 2020-0 Yes [id number] 1{tbl} Take 1 [facility] vitamin 1-31 102 tablet by ity of w/FA tablet 00:00: mouth [place] 00 daily. Medical Branch docusate 2020-0 Yes [id number] 240mg Take 1 [facility] calcium 240 1-31 102 capsule by it y of mg capsule 00:00: mouth once [place] 00 daily as Medical needed for Branch Constipati on. ferrous 2020-0 Yes [id number] 325mg Take 1 [facility] sulfate 325 1-31 102 tablet by ity of mg (65 mg 00:00: mouth 2 [place] iron) 00 (two) Medical tablet times Branch daily. ibuprofen 2020-0 Yes [id number] 600mg Take 1 [facility] 600 mg 1-31 102 tablet by ity of tablet 00:00: mouth [place] 00 every 6 Medical (six) Branch hours as needed (Pain). Take with food or milk. 2020-0 Yes [id number] 1{tbl} Take 1 [facility] vitamin 1-31 102 tablet by ity of w/FA tablet 00:00: mouth [place] 00 daily. Medical Branch docusate 2020-0 Yes [id number] 240mg Take 1 [facility] calcium 240 1-31 102 capsule by it y of mg capsule 00:00: mouth once [place] 00 daily as Medical needed for Branch Constipati on. ferrous 2020-0 Yes [id number] 325mg Take 1 [facility] sulfate 325 1-31 102 tablet by ity of mg (65 mg 00:00: mouth 2 [place] iron) 00 (two) Medical tablet times Branch daily. ibuprofen 2020-0 Yes [id number] 600mg Take 1 [facility] 600 mg 1-31 102 tablet by ity of tablet 00:00: mouth [place] 00 every 6 Medical (six) Branch hours as needed (Pain). Take with food or milk. 2020-0 Yes [id number] 1{tbl} Take 1 [facility] vitamin 1-31 102 tablet by ity of w/FA tablet 00:00: mouth [place] 00 daily. Medical Branch docusate 2020-0 Yes [id number] 240mg Take 1 [facility] calcium 240 1-31 102 capsule by it y of mg capsule 00:00: mouth once [place] 00 daily as Medical needed for Branch Constipati on. ferrous 2020-0 Yes [id number] 325mg Take 1 [facility] sulfate 325 1-31 102 tablet by ity of mg (65 mg 00:00: mouth 2 [place] iron) 00 (two) Medical tablet times Branch daily. ibuprofen 2020-0 Yes [id number] 600mg Take 1 [facility] 600 mg 1-31 102 tablet by ity of tablet 00:00: mouth [place] 00 every 6 Medical (six) Branch hours as needed (Pain). Take with food or milk. 2020-0 Yes [id number] 1{tbl} Take 1 [facility] vitamin 1-31 102 tablet by ity of w/FA tablet 00:00: mouth [place] 00 daily. Medical Branch docusate 2020-0 Yes [id number] 240mg Take 1 [facility] calcium 240 1-31 102 capsule by it y of mg capsule 00:00: mouth once [place] 00 daily as Medical needed for Branch Constipati on. ferrous 2020-0 Yes [id number] 325mg Take 1 [facility] sulfate 325 1-31 102 tablet by ity of mg (65 mg 00:00: mouth 2 [place] iron) 00 (two) Medical tablet times Branch daily. ibuprofen 2020-0 Yes [id number] 600mg Take 1 [facility] 600 mg 1-31 102 tablet by ity of tablet 00:00: mouth [place] 00 every 6 Medical (six) Branch hours as needed (Pain). Take with food or milk. 2019-0 Yes [id number] 1{tbl} Take 1 [facility] vitamin 1-31 102 tablet by ity of w/FA tablet 00:00: mouth [place] 00 daily. Medical Branch docusate 2020-0 Yes [id number] 240mg Take 1 [facility] calcium 240 1-31 102 capsule by it y of mg capsule 00:00: mouth once [place] 00 daily as Medical needed for Branch Constipati on. ferrous 2020-0 Yes [id number] 325mg Take 1 [facility] sulfate 325 1-31 102 tablet by ity of mg (65 mg 00:00: mouth 2 [place] iron) 00 (two) Medical tablet times Branch daily. ibuprofen 2020-0 Yes [id number] 600mg Take 1 [facility] 600 mg 1-31 102 tablet by ity of tablet 00:00: mouth [place] 00 every 6 Medical (six) Branch hours as needed (Pain). Take with food or milk. 2020-0 Yes [id number] 1{tbl} Take 1 [facility] vitamin 1-31 102 tablet by ity of w/FA tablet 00:00: mouth [place] 00 daily. Medical Branch docusate 2020-0 Yes [id number] 240mg Take 1 [facility] calcium 240 1-31 102 capsule by it y of mg capsule 00:00: mouth once [place] 00 daily as Medical needed for Branch Constipati on. ferrous 2020-0 Yes [id number] 325mg Take 1 [facility] sulfate 325 1-31 102 tablet by ity of mg (65 mg 00:00: mouth 2 [place] iron) 00 (two) Medical tablet times Branch daily. ibuprofen 2020-0 Yes [id number] 600mg Take 1 [facility] 600 mg 1-31 102 tablet by ity of tablet 00:00: mouth [place] 00 every 6 Medical (six) Branch hours as needed (Pain). Take with food or milk. 2020-0 Yes [id number] 1{tbl} Take 1 [facility] vitamin 1-31 102 tablet by ity of w/FA tablet 00:00: mouth [place] 00 daily. Medical Branch docusate 2020-0 Yes [id number] 240mg Take 1 [facility] calcium 240 1-31 102 capsule by it y of mg capsule 00:00: mouth once [place] 00 daily as Medical needed for Branch Constipati on. ferrous 2020-0 Yes [id number] 325mg Take 1 [facility] sulfate 325 1-31 102 tablet by ity of mg (65 mg 00:00: mouth 2 [place] iron) 00 (two) Medical tablet times Branch daily. ibuprofen 2020-0 Yes [id number] 600mg Take 1 [facility] 600 mg 1-31 102 tablet by ity of tablet 00:00: mouth [place] 00 every 6 Medical (six) Branch hours as needed (Pain). Take with food or milk. 2020-0 Yes [id number] 1{tbl} Take 1 [facility] vitamin 1-31 102 tablet by ity of w/FA tablet 00:00: mouth [place] 00 daily. Medical Branch docusate 2020-0 Yes [id number] 240mg Take 1 [facility] calcium 240 1-31 102 capsule by it y of mg capsule 00:00: mouth once [place] 00 daily as Medical needed for Branch Constipati on. ferrous 2020-0 Yes [id number] 325mg Take 1 [facility] sulfate 325 1-31 102 tablet by ity of mg (65 mg 00:00: mouth 2 [place] iron) 00 (two) Medical tablet times Branch daily. ibuprofen 2020-0 Yes [id number] 600mg Take 1 [facility] 600 mg 1-31 102 tablet by ity of tablet 00:00: mouth [place] 00 every 6 Medical (six) Branch hours as needed (Pain). Take with food or milk. 2020-0 Yes [id number] 1{tbl} Take 1 [facility] vitamin 1-31 102 tablet by ity of w/FA tablet 00:00: mouth [place] 00 daily. Medical Branch docusate 2020-0 Yes [id number] 240mg Take 1 [facility] calcium 240 04-25 102 capsule by it y of mg capsule 00:00: mouth once [place] 00 daily as Medical needed for Branch Constipati on. ferrous Yes [id number] 325mg Take 1 [facility] sulfate 325 04-25 102 tablet by ity of mg (65 mg 00:00: mouth 2 [place] iron) 00 (two) Medical tablet times Branch daily. ibuprofen Yes [id number] 600mg Take 1 [facility] 600 mg 04-25 102 tablet by ity of tablet 00:00: mouth [place] 00 every 6 Medical (six) Branch hours as needed (Pain). Take with food or milk. Vital Signs Vital Name Observation Time Observation Value Comments Source Systolic blood 2022-11-14 14:16:00 116 mm[facility]Hg[facility] 2022-11-14 14:16:00 76 [facility]Hg[facility] 2022-11-14 14:16:00 83 /min [facility] Body temperature 2022-11-14 14:16:00 36.78 [facility] Body height 2022-11-14 14:16:00 160 cm [facility] Body weight 2022-11-14 14:16:00 62.687 kg [facility] BMI 2022-11-14 14:16:00 24.48 kg/m2 [facility] Systolic blood 2022-06-22 18:15:00 133 mm[Hg] Univer sity [facility] Diastolic blood 2022-06-22 18:15:00 74 mm[Hg] Unive [facility] Heart rate 2022-06-22 18:15:00 90 /min [facility] Body temperature 2022-06-22 18:15:00 36.67 [facility] Respiratory rate 2022-06-22 18:15:00 [facility] Body height 2022-06-22 18:15:00 160 cm [facility] Body weight 2022-06-22 18:15:00 59.058 kg [facility] BMI 2022-06-22 18:15:00 23.06 kg/m2 [facility] [place] [facility] Systolic blood 2022-02-28 14:24:00 109 mm[Hg] Univer sity of [facility] [place] [facility] Diastolic blood 2022-02-28 14:24:00 74 mm[Hg] Unive rsity of [facility] [place] [facility] Heart rate 2022-02-28 14:24:00 75 /min [facility] [place] [facility] Body temperature 2022-02-28 14:24:00 36.72 [facility] [place] [facility] Respiratory rate 2022-02-28 14:24:00 17 /min [facility] [place] [facility] Body height 2022-02-28 14:24:00 160 cm [facility] [place] [facility] Body weight 2022-02-28 14:24:00 59.33 kg [facility] [place] [facility] BMI 2022-02-28 14:24:00 23.17 kg/m2 [facility] [place] [facility] [place] Body height 2022-01-09 19:47:00 160 cm [facility] [place] [facility] Body weight 2022-01-09 19:47:00 58.514 kg [facility] [place] [facility] BMI 2022-01-09 19:47:00 22.85 kg/m2 [facility] [place] [facility] Systolic blood 2021-12-26 21:28:00 146 mm[Hg] Univer sity [facility] [place] [facility] Diastolic blood 2021-12-26 21:28:00 70 mm[Hg] Unive rsity of pressure [facility] Heart rate 2021-12-26 21:28:00 66 /min [facility] [place] [facility] Respiratory rate 2021-12-26 21:28:00 20 /min [facility] Branch Oxygen saturation in 2021-12-26 21:28:00 100 /min [facility] Arterial blood by [facility] Pulse oximetry Branch Body temperature 2021-12-26 20:43:00 36.33 [facility]iel [facility] [place] [facility] Body height 2021-12-19 16:28:00 160 cm [facility] [place] [facility] Body weight 2021-12-19 16:28:00 56.7 kg [facility] [place] [facility] BMI 2021-12-19 16:28:00 22.15 kg/m2 [facility] [place] [facility] Heart rate 2021-12-26 21:07:00 66 /min [facility] [place] [facility] Respiratory rate 2021-12-26 21:07:00 20 /min [facility] [place] [facility] [place] Oxygen saturation in 2021-12-26 21:07:00 100 /min [facility] Arterial blood by [facility] Pulse oximetry Branch Systolic blood 2021-12-26 21:03:00 131 mm[Hg] Univer sity of [facility] [place] [facility] Diastolic blood 2021-12-26 21:03:00 69 mm[Hg] Unive rsity of [facility] [place] [facility] [place] Body temperature 2021-12-26 20:43:00 36.33 [facility]iel [facility] [place] [facility] Body height 2021-12-19 16:28:00 160 cm [facility] [place] [facility] [place] Body weight 2021-12-19 16:28:00 56.7 kg [facility] [place] [facility] BMI 2021-12-19 16:28:00 22.15 kg/m2 [facility] [place] [facility] Body height 2021-12-15 18:01:00 160 cm [facility] [place] [facility] Systolic blood 2021-11-09 15:45:00 112 mm[Hg] Univer sity [facility] [place] [facility] Diastolic blood 2021-11-09 15:45:00 71 mm[Hg] Unive rsity [facility] [place] [facility] Heart rate 2021-11-09 15:45:00 86 /min [facility] [place] [facility] Body temperature 2021-11-09 15:45:00 37.06 [facility]iel [facility] [place] [facility] Respiratory rate 2021-11-09 15:45:00 18 /min [facility] [place] [facility] Body height 2021-11-09 15:45:00 160 cm [facility] [place] [facility] Body weight 2021-11-09 15:45:00 56.7 kg [facility] [place] [facility] BMI 2021-11-09 15:45:00 22.14 kg/m2 [facility] [place] [facility] Procedures Procedure Date / Time Performed Performing Clinician [facility] e CONSENT/REFUSAL FOR 2022-11-14 14:07:19 Doctor Unassigned, No Un [facility] DIAGNOSIS AND Name Medical Branch TREATMENT ASSIGNMENT OF BENEFITS 2022-11-14 14:07:04 Doctor Unassigned, No [facility] Name Medical Branch POCT URINALYSIS W/O 2022-11-14 00:00:00 Thiago Hidalgo [facility] SPECIFIC GRAVITY Medical [place] POCT URINALYSIS W/O 2022-06-22 18:27:00 Thiago Hidalgo [facility] SPECIFIC GRAVITY Medical Branch CONSENT TO CONTACT FOR 2022-06-22 17:52:50 Doctor Unassigned, No [facility] VOLUNTARY RESEARCH Name Medical Branc h GANGLION EXCISION 2021-12-26 19:47:00 Radha Cavazos [facility] POCT TEST 2021-12-26 16:57:00 Toy [facility] POCT TEST 2021-12-26 16:57:00 Toy [facility] DAY SURGERY - ADC 2021-12-26 05:01:00 Doctor Unassigned, No [facility] CONSENT/REFUSAL FOR 2021-12-23 15:24:42 Doctor Unassigned, No [facility] Name Medical Branch TREATMENT CONSENT/REFUSAL FOR 2021-12-23 15:24:42 Doctor Unassigned, No [facility] AND Name Medical Branch TREATMENT ASSIGNMENT OF BENEFITS 2021-12-23 15:24:19 Doctor Unassigned, No [facility] Medical Branch ASSIGNMENT OF BENEFITS 2021-12-23 15:24:19 Doctor Unassigned, No [facility] Name Medical Branch EXTERNAL PROVIDER 2021-12-20 05:01:00 Doctor Unassigned, No [facility] RECORDS Name Medical Branch EXTERNAL PROVIDER 2021-12-20 05:01:00 Doctor Unassigned, No [facility] Name Medical Branch Encounters Start End Encounter Admission Attending Care Care Encounter Source Date/Time Date/Time Type Type Clinicians Facility Department ID 2023-01-15 2023-01-15 Outpatient R ROCKY PANEHEMIAS [facility] [id number] Univers 08:30:00 08:30:00 THIAGO edvin [facility] 2022-12-15 2022-12-15 Refdavid Hidalgo [facility] [id number] Univers 00:00:00 00:00:00 Thiago SANDOVAL 350.1.13.10 i ty of [facility] 4[place] [id number] [facility] [address] [employer] 2022-11-17 2022-11-17 To Hidalgo PANEHEMIAS [id number] [id number] Univers 00:00:00 00:00:00 Management Thiago [facility] 350.1.13.10 ity of [place] 4.2.7.2.686 Esa as NACHO?BLEA [id number] [address] MEDICAL OFFICE BUILDING 2022-11-14 2022-11-14 Outpatient R ROCKY [facility] [id number] Univers 09:00:00 09:56:08 THIAGO lowery [facility] 2022-11-14 2022-11-14 Office Rocky PANEHEMIAS [id number] Univers 09:00:00 09:56:08 Visit Thiago JENYKENYETTA 350.1.13.10 i ty [place] 4[place].2.[place] [id number] [address] 2022-11-14 2022-11-14 Orders Doctor MARCOS 1.2.840.114 [id number] Univers 00:00:00 00:00:00 Only Unassigned, SUSHANT 350.1.13.10 ity of [facility] 4.2.7.2.686 Esa as [id number] [place] [address] Branch 2022-08-07 2022-08-07 Outpatient R ROCKY [facility] [id number] Univers 11:15:00 11:15:00 THIAGO ity [facility] 2022-06-25 2022-06-25 Case ANGÉLICA Hidalgo 1.2.198.414 [id number] Univers 00:00:00 00:00:00 Management Thiago PEDIATRIC 350.1.13.10 ity [place].2.[place] [id number] [place] [address] Branch CARE CLINIC 2022-06-22 2022-06-22 Outpatient R ROCKY [facility] [id number] Univers 13:00:00 13:55:57 THIAGO edvin [facility] 2022-06-22 2022-06-22 Office Rocky [facility] [id number] Univers 13:00:00 13:55:57 Visit Thiago SANDOVAL 350.1.13.10 i ty [place] 4[place]7.2.[place] [id number] [address] 2022-06-22 2022-06-22 Orders Doctor MARCOS 1..840.114 [id number] Univers 00:00:00 00:00:00 Only Unassigned, SUSHANT 350.1.13.[address] [facility] 4.2.7.2.686 Esa as [id number] [address] 2022-06-19 2022-06-19 [place] [id number] Univers 14:45:00 14:45:00 THIAGO edvin [facility] 2022-06-15 2022-06-15 Outpatient R ROCKY [facility] [id number] Univers 14:30:00 14:30:00 THIAGO [facility] 2022-06-05 2022-06-05 [place] [id number] Univers 11:00:00 11:00:00 THIAGO edvin [facility] 2022-05-31 2022-05-31 [facility] 1..756.493 [id number] Univers 00:00:00 00:00:00 Thiago SANDOVAL 350.1.13.10 i ty [place] 4[place]7.2.[place] [id number] [address] 2022-03-14 2022-03-14 Patient Rocky [facility] [id number] [id number] Univers 00:00:00 00:00:00 Secure Msg Thiago SANDOVAL 350.1.13.10 ity of [place] 4[place].2.[place] [id number] In dical NAL [address] [employer] 2022-02-28 2022-02-28 Outpatient R ROCKY [facility] [id number] Univers 08:00:00 08:37:09 THIAGO lowery [facility] 2022-02-28 2022-02-28 [facility] [id number] Univers 08:00:00 08:37:09 Visit Thiago SANDOVAL 350.1.13.10 i ty [place] 4[place]7.2.[place] [id number] In dical NAL [address] [employer] 2022-02-21 2022-02-21 Telephone [facility] 1.2.840.114 [id number] Univers 00:00:00 00:00:00 Thiago SANDOVAL 350.1.13.10 i ty of [place] 4[place]7.2.[place] [id number] In dical NAL [address] [employer] 2022-02-18 2022-02-18 Refill [facility] 1.2.263.106 [id number] Univers 00:00:00 00:00:00 Thiago SANDOVAL 350.1.13.10 i ty of [place] 4[place].2.[place] [id number] In dical NAL [address] [place] [address] 2022-02-18 2022-02-18 Refill [facility] 1.2.539.157 [id number] Univers 00:00:00 00:00:00 Thiago SANDOVAL 350.1.13.10 i ty of [place] 4[place].2.[place] [id number] In dical NAL [address] [employer] 2022-01-09 2022-01-09 Office [facility] 1.2.840.114 [id number] Univers 14:15:00 14:30:00 Visit [facility] 350.1.13.10 it y [facility] 4.2.7.2.686 Esa as NACHO?BLEA [id number] In dicvannesa BELLE [address] [place] [address] 2022-01-092022-01-09 Outpatient R FRANCINE [facility] [id number] Univers 14:15:00 14:15:00 ALEXEI sebastián [facility] 2022-01-09 2022-01-09 Letter [facility] 1.2.448.333 [id number] Univers 00:00:00 00:00:00 (Out) Radha Lee [facility] 350.1.13.10 it y of [place] 4.2.7.2.686 Esa as NACHO?BLEA [id number] In abhayvannesa GINO [address] [place] [address] MEDICAL OFFICE BUILDING 2021-12-26 2021-12-26 Outpatient [facility] SOR [id number] Univers 11:44:00 16:28:00 RADHA lowery [facility] 2021-12-26 2021-12-26 [facility] 1.2.840.114 [id number] Univers 11:44:00 16:28:00 Encounter Radha SANDOVAL 350.1.13.10 ity of [place]2.[place].2.[place] SUR[place]ICAL [id number] [facility] 071 Branch 2021-12-26 2021-12-26 Surgery [facility] 1.2.130.114 [id number] Univers 14:55:00 16:07:00 Radha SANDOVAL 350.1.13.10 i ty of [facility] 4.2.7.2.[place] [id number] [facility] 020 Branch 2021-12-26 2021-12-26 Orders Doctor MARCOS 1.2.840.114 [id number] Univers 00:00:00 00:00:00 Only Unassigned, SUSHANT 350.1.13.10 ity of [facility] 4.2.7.2.686 Esa as [id number] [place] [address] Branch 2021-12-23 2021-12-23 Wall Insulation Sprayer Cassidy, Adc Lab Main [facility] 1.2.8 40.114 [id number] Univers 09:30:00 09:45:00 Visit Radha Cavazos 350.1.13.10 ity of [facility] 4.2.7.2.[place] [id number] Me dical NAL [address] [employer] 2021-12-23 2021-12-23 Outpatient R CAVAZOS, [facility] [id number] Univers 09:30:00 09:30:00 RADHA lowery [facility] 2021-12-16 2021-12-16 Prep For [facility] 1.2.840.114 [id number] Univers 00:00:00 00:00:00 Surgery Radha Lee [facility] 350.1.13.10 it y of [place] 4.2.7.2.686 Esa as NACHO?BLEA [id number] Me abhayal YOSHI [address] [facility] 2021-12-15 2021-12-15 Outpatient R FRANCINE [facility] [id number] Univers 13:15:00 14:01:10 ALEXEI lowery [facility] 2021-12-15 2021-12-15 Office Francine [facility] 1.2.840.114 [id number] Univers 13:15:00 14:01:10 Visit [facility] 350.1.13.10 it y of [place] 4.2.7.2.686 Esa as NACHO?BLEA [phone] In lillian BELLE [address] [facility] 2021-11-09 2021-11-09 Outpatient R ROCKY [facility] [id number] Univers 10:30:00 11:36:16 THIAGO edvin [facility] 2021-11-09 2021-11-09 Office Rocky [facility] 1.2.166.947 [id number] Univers 10:30:00 11:36:16 Visit Thiago [place] 350.1.13.10 i ty of [place] 4.2.7.2.[place] [id number] Me dical NAL [address] [employer] 2021-11-09 2021-11-09 Outpatient R ROCKY [facility] [id number] Univers 10:30:00 10:30:00 THIAGO edvin [facility] 2021-11-09 2021-11-09 Orders Doctor RODRÍGUEZ 1.2.840.114 [id number] Univers 00:00:00 00:00:00 Only Unassigned, SUSHANT 350.1.13.10 ity of [place] [facility] 4.2.7.2.686 Esa as [id number] [address] 2021-09-15 2021-09-15 Case [facility] 1.2.200.622 [id number] Univers 00:00:00 00:00:00 Management Thiago SANDOVAL 350.1.13.10 ity of [place] 4[place]7.2.[place] [id number] [address] 2021-09-14 2021-09-14 Office [facility] 1.2.006.947 [id number] Univers 10:30:00 10:51:47 Visit Thiago SANDOVAL 350.1.13.10 i ty of [place] 4[place]7.2.[place] [id number] [address] 2021-09-14 2021-09-14 Outpatient R ROCKY [facility] [id number] Univers 10:30:00 10:51:47 THIAGO [facility] 2021-09-14 2021-09-14 [place] [id number] Univers 10:30:00 10:30:00 [facility] 2021-08-08 2021-08-08 Outpatient R ROCKY [facility] [id number] Univers 09:00:00 09:32:11 THIAGO [facility] 2021-08-08 2021-08-08 Office [facility] 1.2.995.630 [id number] [facility] 09:00:00 09:32:11 Visit Thiago SANDOVAL 350.1.13.10 i ty [place] 4[place]7.2.[place] [id number] [address] 2021-07-26 2021-07-26 Refill [facility] 1.2.523.263 [id number] Univers 00:00:00 00:00:00 Thiago SANDOVAL 350.1.13.10 i ty of [facility] 4.2.7.2.[place] [id number] [address] 2021-07-19 2021-07-19 Case Rocky [facility] 1.2.585.648 [id number] Univers 00:00:00 00:00:00 Management Thiago SANDOVAL 350.1.13.10 ity of [place] 4.2.7.2.[place] [id number] [address] 2021-07-18 2021-07-18 Office Rocky [facility] 1.2.582.087 [id number] Univers 08:00:00 08:41:06 Visit Thiago SANDOVAL 350.1.13.10 i ty of [facility] 4.2.7.2.[place] [id number] [address] 2021-07-18 2021-07-18 Outpatient R ROCKY [facility] [id number] Univers 08:00:00 08:41:06 THIAGO lowery [facility] 2021-07-18 2021-07-18 [place] [id number] Univers 08:00:00 08:00:00 [facility] 2021-07-18 2021-07-18 Letter Rocky [facility] 1.2.464.451 [id number] Univers 00:00:00 00:00:00 (Out) Thiago SANDOVAL 350.1.13.10 i ty of [place] 4[place].2.[place] [id number] [address] 2021-06-17 2021-06-17 Case ANGÉLICA Hidalgo 1.2.469.949 [id number] Univers 00:00:00 00:00:00 Management Thiago PEDIATRIC 350.1.13.10 [place] [id number] [address] 2021-06-16 2021-06-16 Outpatient R NATALIIA KIM [facility] [id number] Univers 14:30:00 15:30:59 ity [facility] 2021-06-16 2021-06-16 Nurse Nurse, [facility] 1.2.840.114 [id number] Univers 14:30:00 15:30:59 Visit Nataliia Kim 350.1.13.10 ity of [facility] 4.2.7.2.[place] [id number] In dical [address] 2021-06-16 2021-06-16 Outpatient R NATALIIA KIM [facility] [id number] Univers 14:30:00 14:30:00 ity [facility] 2021-06-15 2021-06-15 Telephone Rocky [facility] 1.2.840.114 [id number] Univers 00:00:00 00:00:00 Thiago SANDOVAL 350.1.13.10 i ty of [facility] 4.2.7.2.[place] [id number] [address] 2021-06-14 2021-06-14 Office Rocky [facility] 1.2.763.771 [id number] Univers 10:00:00 10:30:00 Visit Thiago ASNDOVAL 350.1.13.10 i ty of [place] 4[place] [id number] [address] 2021-06-14 2021-06-14 Outpatient R ROCKY [facility] [id number] Univers 10:00:00 10:00:00 THIAGO lowery [facility] 2021-06-14 2021-06-14 Outpatient R ROCKY [facility] [id number] Univers 10:00:00 10:00:00 THIAGO lowery [facility] 2021-06-13 2021-06-13 Patient Rocky [facility] 1.2.030.037 [id number] Univers 00:00:00 00:00:00 Secure Msg Thiago SANDOVAL 350.1.13.10 ity of [place] [id number] [address] 2021-06-13 2021-06-13 Patient Rocky [facility] [id number] Univers 00:00:00 00:00:00 Secure Msg Thiago [place] 350.1.13.10 ity of [place] 4[place]2.7.2.[place] [id number] In dical NAL [address] [employer] 2021-06-13 2021-06-13 Patient Rocky [facility] [id number] Univers 00:00:00 00:00:00 Secure Msg Thiago [place] 350.1.13.10 ity of [place] 4.2.7.2.[place] [id number] In dical NAL [address] [employer] 2021-06-02 2021-06-02 Patient Rocky [facility] [id number] Univers 00:00:00 00:00:00 Secure Msg Thiago [place] 350.1.13.10 ity of [place] 4[place]7.2.[place] [id number] In dical NAL [address] [employer] 2021-05-10 2021-05-10 Wall Insulation Sprayer Cassidy, [place] [facility] Main [facility] 1.2.8 40.114 [id number] Univers 11:30:00 11:45:00 Visit Nataliia Kim 350.1.13.10 ity of [place] 4.2.7.2.686 [place] PROFESSIO [id number] In dical NAL [address] [employer] 2021-05-10 2021-05-10 Outpatient R ROCKY [facility] [id number] Univers 11:30:00 11:30:00 THIAGO lowery [facility] 2021-05-10 2021-05-10 Outpatient R [facility] [id number] Univers 11:30:00 11:30:00 THIAGO lowery [facility] 2021-05-10 2021-05-10 Office Thiago Hidalgo [facility] 1.2.840.11 [id number] Univers 10:30:00 11:09:30 Visit Nataliia Kim [id number] ity of [facility] 4.2.7.2.[place] [phone] In dical NAL 134 [employer] 2021-05-10 2021-05-10 Orders Doctor MARCOS [id number] Univers 00:00:00 00:00:00 Only Unassigned, SUSHANT 350.1.13.10 ity of [facility] 4.2.7.2.686 Esa as [phone] [address] 2021-05-10 2021-05-10 Telephone [facility] [facility] 1.2.840.114 [id number] Univers 00:00:00 00:00:00 Thiago SANDOVAL 350.1.13.10 i ty [place] [phone] In dical NAL [address] [place] [address] 2021-05-09 2021-05-09 Patient [place] [facility] 1.2.248.846 [id number] Univers 00:00:00 00:00:00 Secure Msg Thiago SANDOVAL 350.1.13.10 it[place] of [place] [phone] In dical NAL [address] [place] [address] 2021-04-28 2021-04-28 Outpatient R ROCKY [facility] [id number] Univers 14:00:00 14:46:54 THIAGO lowery [facility] 2021-04-28 2021-04-28 [facility] 1.2.874.612 [id number] Univers 14:00:00 14:46:54 Visit Thiago SANDOVAL 350.1.13.10 i ty [place] [phone] In dical NAL [address] [place] [address] 2021-04-21 2021-04-21 Telephone Nataliia Kim [facility] 1.2.840.114 [id number] Univers 00:00:00 00:00:00 Alejandro SANDOVAL 350.1.13.10 i ty [place] [phone] In dical NAL [address] [employer] 2021-02-11 2021-02-11 Telephone [facility] 1.2.840.114 [id number] Univers 00:00:00 00:00:00 Thiago SANDOVAL 350.1.13.10 i ty [facility] [place] [phone] In dical [facility] [address] [employer] 2021-02-08 2021-02-08 Orders Doctor MARCOS 1.2.840.114 [id number] Univers 00:00:00 00:00:00 Only Unassigned, SUSHANT 350.1.13.10 ity of [place] [facility] 4.2.7.2.686 Esa as [phone] [address] 2021-02-07 2021-02-07 Wall Insulation Sprayer 2, Adc Lab [facility] 1.2.840.114 [id number] Univers 14:10:57 14:17:00 Visit Thiago Hidalgo 350.1.13.10 ity of [place] [phone] [facility] [address] [employer] 2021-02-07 2021-02-07 Outpatient R ROCKY [facility] [id number] Univers 14:15:00 14:15:00 THIAGO [facility] 2021-02-07 2021-02-07 Outpatient R ROCKY [facility] [id number] Univers 13:30:00 14:06:13 [facility] 2021-02-07 2021-02-07 [facility] 1.2.566.140 [id number] Univers 13:25:29 14:06:13 Visit Thiago SANDOVAL 350.1.13.10 i ty [place] [phone] [facility] [address] [employer] 2021-02-07 2021-02-07 Outpatient R ROCKY [facility] [id number] Univers 13:30:00 13:30:00 [facility] 2020-12-22 2020-12-22 Outpatient R ROCKY [facility] [id number] Univers 09:00:00 09:00:00 THIAGO ity of [facility] 2020-11-05 2020-11-05 Outpatient R NATALIIA KIM [facility] [id number] Univers 10:30:00 10:44:37 ity of [facility] 2020-11-05 2020-11-05 Outpatient R JUDY NATALIIA [facility] [id number] Univers 10:30:00 10:44:37 ity of [facility] 2020-11-05 2020-11-05 Outpatient R JUDY [facility] [id number] Univers 10:30:00 10:44:37 ity of [facility] 2020-11-05 2020-11-05 Outpatient R JUDY NATALIIA [facility] [id number] Univers 10:30:00 10:44:37 ity [facility] 2020-11-05 2020-11-05 Nurse Nurse, [facility] 1.2.840.114 [id number] Univers 10:24:51 10:44:37 Visit Judy Nataliia Alejandro Sandoval 350.1.13.10 ity of [place] [phone] In dical nal 134 [facility] 2020-11-05 2020-11-05 Orders Doctor MARCOS 1.2.840.114 [id number] Univers 00:00:00 00:00:00 Only Unassigned, SUSHANT 350.1.13.10 ity of [place] [facility] 4.2.7.2.686 Esa as [phone] [facility] [address] [place] 2020-11-04 2020-11-04 Marcell Escamilla [facility] 1.2.459.848 [id number] Univers 00:00:00 00:00:00 Alexei Sandoval 350.1.13.10 i ty of [place] [phone] In dical nal 198 [facility] 2020-10-27 2020-10-27 Outpatient R FRANCINE [facility] [id number] Univers 14:00:00 14:00:00 ALEXEI [facility] 2020-10-19 2020-10-19 Outpatient Benjamin FRANCINE [facility] [id number] Univers 13:30:00 13:30:00 ALEXEI edvin [facility] 2020-08-19 2020-08-19 Outpatient R ROCKY [facility] [id number] Univers 09:15:00 09:15:00 THIAGO lowery [facility] 2020-08-19 2020-08-19 Outpatient R ROCKY [facility] [id number] Univers 09:15:00 09:15:00 THIAGOCARLEE lowery [facility] 2020-08-19 2020-08-19 Outpatient Benjamin HIDALGO [facility] [id number] Univers 09:15:00 09:15:00 THIAGOCARLEE lowery [facility] 2020-08-16 2020-08-16 Telephone [place] [facility] 1.2.840.114 [id number] Univers 00:00:00 00:00:00 Thiago Sandoval 350.1.13.10 i ty of [place] [phone] In dical [address] 2020-08-16 2020-08-16 Telephone [place] [facility] 1.2.840.114 [id number] 00:00:00 00:00:00 Thiago Sandoval 350.1.13.10 [place] 4.2.7.2.686 Professio [phone] [address] 2020-08-13 2020-08-13 Outpatient R ROCKY [facility] [id number] Univers 10:30:00 10:38:57 THIAGOCARLEE lowery [facility] 2020-08-13 2020-08-13 Outpatient R ROCKY [facility] [id number] Univers 10:30:00 10:38:57 THIAGO edvin [facility] 2020-08-13 2020-08-13 Outpatient R ROCKY [facility] [id number] Univers 10:30:00 10:38:57 [facility] 2020-08-13 2020-08-13 Nurse Nurse, [facility] 1.2.840.114 [id number] [facility] 10:24:46 10:38:57 Visit Thiago Hidalgo Kayla 350.1.13.10 ity of [place] [phone] In dic[address] 2020-08-13 2020-08-13 Nurse Nurse, [facility] 1.2.840.114 [id number] 10:24:46 10:38:57 Visit [facility] [place] 350.1.13.10 [facility] 4.2.7.2.686 Professio [phone] [address] 2020-05-21 2020-05-21 Outpatient R NATALIIA KIM [facility] [id number] Univers 10:30:00 11:04:33 [facility] 2020-05-21 2020-05-21 Nurse Nurse, [facility] 1.2.840.114 [id number] [facility] 10:37:59 10:52:59 Visit Nataliia Kim 350.1.13.10 ity [facility] [place] [phone] In dic[address] 2020-05-21 2020-05-21 Nurse Nurse, [facility] 1.2.840.114 [id number] 10:37:59 10:52:59 Visit [facility] [place] 350.1.13.10 [facility] 4.2.7.2.686 Professio [phone] [address] 2020-05-21 2020-05-21 [facility] 1.2.422.017 [id number] Univers 00:00:00 00:00:00 (Out) Cam [place] 350.1.13.10 i ty of [place] [phone] In dical [address] 2020-05-21 2020-05-21 Genie Kim [facility] 1.2.146.175 [id number] 00:00:00 00:00:00 (Out) Cam [place] 350.1.13.10 [place] 4.2.7.2.686 Professio [phone] [address] 2020-04-01 2020-04-01 Telephone [facility] 1.2.840.114 [id number] Univers 00:00:00 00:00:00 Thiago Kayla 350.1.13.10 i ty of [place] [phone] [address] 2020-04-01 2020-04-01 Telephone [facility] 1.2.840.114 [id number] 00:00:00 00:00:00 Thiago Kayla 350.1.13.10 [place] 4.2.7.2.686 Professio [phone] [address] 2020-02-27 2020-02-27 Outpatient R NATALIIA KIM [facility] [id number] [facility] 14:00:00 14:19:34 ity [facility] 2020-02-27 2020-02-27 Nurse Nurse, [facility] 1.2.840.114 [id number] [facility] 13:55:14 14:19:34 Visit Nataliia Kim 350.1.13.10 ity [facility] [place] [phone] [address] 2020-02-27 2020-02-27 Nurse Nurse, [facility] 1.2.840.114 [id number] 13:55:14 14:19:34 Visit Zack [place] 350.1.13.10 [facility] 4.2.7.2.686 Professio [phone] [address] 2020-01-21 2020-01-21 [facility] 1.2.840.114 [id number] [facility] 00:00:00 00:00:00 Thiago Sandoval 350.1.13.10 i ty of [place] [phone] [address] 2020-01-21 2020-01-21 [facility] 1.2.840.114 [id number] 00:00:00 00:00:00 Thiago Sandoval 350.1.13.10 [place] 4.2.7.2.686 Professio [phone] [address] 2019-12-23 2019-12-23 [facility] 1.2.380.670 [id number] Univers 09:45:41 10:34:36 Visit Thiago Sandoval 350.1.13.10 i ty of [place] [phone] Me dical [address] 2019-12-23 2019-12-23 Office [place] [facility] 1.2.942.237 [id number] 09:45:41 10:34:36 Visit Thiago Sandoval 350.1.13.10 [place] 4.2.7.2.686 Professio [phone] [address] 2019-12-23 2019-12-23 Outpatient Benjamin HIDALGO [facility] [id number] Univers 09:30:00 09:30:00 THIAGO [facility] 2019-12-23 2019-12-23 Orders Doctor MARCOS 1.2.840.114 [id number] 00:00:00 00:00:00 Only Unassigned, SUSHANT 350.1.13.10 [place] [facility] 4.2.7.2.686 [phone] [facility] 2019-12-23 2019-12-23 Orders Doctor MARCOS 1.2.840.114 [id number] [facility] 00:00:00 00:00:00 Only Unassigned, SUSHANT 350.1.13.10 ity of [place] [facility] 4.2.7.2.686 Esa as [phone] [address] 2019-12-08 2019-12-08 Outpatient Benjamin HIDALGO [facility] [id number] Univers 10:30:00 10:30:00 THIAGO [facility] 2019-12-05 2019-12-05 Nurse Nurse, [facility] 1.2.840.114 [id number] Univers 14:03:27 14:29:58 Visit Nataliia Kim 350.1.13.10 ity [place]2.[place] [phone] [address] 2019-12-05 2019-12-05 Outpatient R [facility] [id number] Univers 14:00:00 14:00:00 ity of [facility] 2019-12-05 2019-12-05 Letter Jose [facility]ekennethAD[facility] 1.2.573.219 [id number] Univers 00:00:00 00:00:00 (Out) Thiago Kayla 350.1.13.10 i ty of [place]2.[place] [phone] [address] 2019-11-25 2019-11-25 Telephone [place] [facility] 1.2.840.114 [id number] Univers 00:00:00 00:00:00 Thiago Sandoval 350.1.13.10 i ty of [place].2.[place] [phone] [address] 2019-10-10 2019-10-10 Telephone Gurpreet [facility] 1.2.840.114 [id number] Univers 00:00:00 00:00:00 Ranvt [employer] 350.1.13.10 it y of [place] 4.2.7.2.686 Esa as Professio [phone] [address] Office [facility] 2019-10-09 2019-10-09 Urgent Pob1, Acute Care Clinic [facility] 1. 2.840.114 [id number] Univers 14:55:26 15:15:26 Care Cleopatra [facility] 350.1.13.10 ity of [place] 4.2.7.2.686 [place] Professio [phone] [address] Office [facility] 2019-10-09 2019-10-09 Outpatient R CLEMENT [facility] [id number] Univers 15:00:00 15:00:00 CLEOPATRA lowery of [facility] 2019-09-23 2019-09-23 Telephone Nataliia Kim [facility] 1.2.840.114 [id number] Univers 00:00:00 00:00:00 [facility] 350.1.13.10 it y of [place] 4.2.7.2.686 [place]sa as Professio [phone] In dical [address] One 2019-09-03 2019-09-03 Nurse Nurse, [facility] 1.2.840.114 [id number] Univers 14:34:52 14:51:57 Visit Thiago Hidalgo 350.1.13.10 ity of [place].2.[place] [phone] [address] 2019-09-03 2019-09-03 Outpatient R [facility] [id number] Univers 14:30:00 14:30:00 ity of [facility] 2019-09-03 2019-09-03 Outpatient R [facility] [id number] Univers 09:00:00 09:00:00 ity of [facility] 2019-09-03 2019-09-03 Outpatient R [facility] [id number] Univers 09:00:00 09:00:00 ity of [facility] 2019-06-05 2019-06-05 Routine Nataliia Kim [facility] 1..330.499 [id number] Univers 10:52:20 12:07:54 Cam Kayla 350.1.13.10 ity of Visit [place].7.2.[place] [phone] [address] 2019-06-05 2019-06-05 Outpatient R NATALIIA KIM [facility] [id number] Univers 10:45:00 10:45:00 ity of [facility] 2019-06-05 2019-06-05 Letter [place] [facility] 1..801.969 [id number] Univers 00:00:00 00:00:00 (Out) Thiago Sandoval 350.1.13.10 i ty of [place] 4[place].2.[place] [phone] [address] 2019-06-05 2019-06-05 Orders Doctor RODRÍGUEZ 1.2.840.114 [id number] Univers 00:00:00 00:00:00 Only Unassigned, SUSHANT 350.1.13.10 ity of [place] [facility] 4.2.7.2.686 Esa as [phone] [facility] [address] [place] 2019-05-21 2019-05-21 Outpatient R NATALIIA KIM [facility] [id number] Univers 09:45:00 09:45:00 ity of [facility] 2019-05-01 2019-05-01 Routine [facility] 1.2.378.901 [id number] Univers 13:19:04 14:08:01 Thiago Sandoval 350.1.13.10 ity of Visit [place].2.[place] [phone] [address] 2019-05-01 2019-05-01 Telephone [facility] 1.2.840.114 [id number] Univers 00:00:00 00:00:00 Thiago Sandoval 350.1.13.10 i ty of [place] 4[place].7.2.[place] [phone] [address] 2019-05-01 2019-05-01 Letter [facility] 1.2.268.366 [id number] Univers 00:00:00 00:00:00 (Out) Thiago Sandoval 350.1.13.10 i ty of [place]2.[place] [phone] [address] 2019-04-23 2019-04-26 Hospital Nataliai Kim [facility] 1.2.840.114 [id number] Univers 15:00:00 17:30:00 Encounter Alejandro Sandoval 350.1.13.10 ity of [place]2.7.2.686 [place] [phone] [facility] [address] [place] 2019-04-23 2019-04-26 Inpatient P JUDY [facility] OZ [id number] Univers 15:00:00 17:30:00 ity of [facility] 2019-04-21 2019-04-21 Orders Doctor RODRÍGUEZ 1.2.840.114 [id number] Univers 00:00:00 00:00:00 Only Unassigned, SUSHANT 350.1.13.10 ity of [place] [facility] 4.2.7.2.686 Esa as [phone] [facility] [address] [place] 2019-04-16 2019-04-16 Routine [place] [facility] 1.2.472.961 [id number] Univers 10:30:17 10:45:17 Thiago Kayla 350.1.13.10 ity of Visit [place].2.[place] [phone] In dical nal 134 [facility] 2019-04-16 2019-04-16 Letter Nataliia Kim [facility] 1.2.074.403 [id number] Univers 00:00:00 00:00:00 (Out) Cam [place] 350.1.13.10 i ty of [place] 4[place].7.2.[place] [phone] [facility] 134 [facility] 2019-04-14 2019-04-14 Hospital VasiliyMARCOS 1.2.840.114 [id number] Univers 04:00:00 06:59:00 Encounter Chasey SUSHANT 350.1.13.10 ity of [place]2.[place] [id number] [facility] [address] [place] 2019-04-14 2019-04-14 Outpatient P VASILIY [facility] OZ [id number] Univers 04:00:00 06:59:00 CHASEY ity of [facility] 2019-04-14 2019-04-14 Telephone Brigida Kim [facility] 1.2.840.114 [id number] Univers 00:00:00 00:00:00 [place] 350.1.13.10 i ty of [place] 4[place].7.2.686 [place] [phone] In dicwy nal [address] [place] [address] 2019-04-09 2019-04-09 Routine Nataliia Kim [facility] 1.2.765.490 [id number] Univers 09:50:14 11:03:30 Cam [place] 350.1.13.10 ity of Visit [place] 4.2.7.2.686 [place] Profess[place] [phone] In dical nal [address] [place] [address] 2019-04-09 2019-04-09 Letter Nataliia Kim [facility] 1.2.224.919 [id number] Univers 00:00:00 00:00:00 (Out) Alejandro Sandoval 350.1.13.10 i ty of [place] 4.2.7.2.686 [place] [facility] [phone] [facility] 134 [facility] 2019-04-09 2019-04-09 Orders Doctor MARCOS 1.2.840.114 [id number] Univers 00:00:00 00:00:00 Only Unassigned, SUSHANT 350.1.13.10 ity of [place] [facility] 4.2.7.2.686 Esa as [phone] [address] 2019-04-07 2019-04-07 [place] [id number] Univers 13:41:47 23:59:00 THIAGO ity [facility] 2019-04-07 2019-04-07 [facility] 1.2.840.114 [id number] Univers 13:41:00 23:59:00 Encounter Thiago Sandoval 350.1.13.10 ity of [place] 4.2.7.2.686 [place] [phone] [facility] [address] [place] 2018-12-11 2018-12-11 Wall Insulation Sprayer Ultrasound, Adryan [facility] 1.2 .840.114 [id number] Univers 13:50:56 15:15:53 Visit Mirela Bajwa PERSONAL COMPANION 350.1.13.10 ity of [facility] 4.2.7.2.686 Esa as MATERNAL [phone] Med ical & CHILD 369 [facility] 2018-12-09 2018-12-09 Telephone [facility] 1.2.840.114 [id number] Univers 00:00:00 00:00:00 Yu Prajapati PERSONAL COMPANION 350.1.13.10 it y of [facility] 4.2.7.2.686 Esa as MATERNAL [phone] Med ical & CHILD 107 [facility] 2018-12-04 2018-12-04 Telephone [facility] 1.2.840.114 [id number] Univers 00:00:00 00:00:00 Yu N PERSONAL COMPANION 350.1.13.10 it y of [facility] 42.7.2.686 Esa as MATERNAL [phone] [facility] ical & CHILD [address] [place] [address] 2018-12-02 2018-12-02 Routine [facility] 1.2.465.810 [id number] Univers 17:07:59 17:46:04 Yu N PERSONAL COMPANION 350.1.13.10 i ty of Visit [facility] 42.7.2.686 Esa as MATERNAL [phone] [facility] & CHILD [address] [place] [address] 2018-11-12 2018-11-12 Telephone [facility] 1.2.840.114 [id number] Univers 00:00:00 00:00:00 Yu N PERSONAL COMPANION 350.1.13.10 it y of [address]686 Esa as MATERNAL [phone] [address] 2018-11-10 2018-11-10 Nurse MARCOS Stuart 1.2.840.114 [id number] Univers 00:00:00 00:00:00 Triage Greer CANCHOLA 350.1.13.10 it y of [facility] 4.2.7.2.686 Esa as [phone] [address] 2018-11-04 2018-11-04 Routine [facility] 1.2.607.201 [id number] Univers 15:23:20 15:50:49 Yu N PERSONAL COMPANION 350.1.13.10 i ty of Visit [facility] 42.7.2.686 Esa as MATERNAL [phone] [facility] & CHILD [address] [place] [address] 2018-10-31 2018-10-31 Telephone [facility] 1.2.840.114 [id number] Univers 00:00:00 00:00:00 Yu N PERSONAL COMPANION 350.1.13.10 it y of [facility] 42.7.2.686 Esa as MATERNAL [phone] [facility] ica & CHILD [address] [place] [address] 2018-10-23 2018-10-23 Outpatient [place] [id number] Univers 10:30:00 10:45:20 YU lowery [facility] 2018-10-23 2018-10-23 Wall Insulation Sprayer Lab, [facility] 1.2.840. 114 [id number] Univers 10:15:07 10:45:20 Visit Yu Ortega Victorina PERSONAL COMPANION [facility]13.[facility] 4.2.7.2.686 Esa as MATERNAL [phone] Med ical & CHILD 107 [facility] 2018-10-23 2018-10-23 Wall Insulation Sprayer Ultrasound, Riley[facility] 1.2 .840.114 [id number] [facility] 09:06:03 10:07:32 Visit Catrina Apodaca PERSONAL COMPANION 350.1.13.10 [facility] 4.2.7.2.686 Esa as MATERNAL [phone] [facility] & CHILD 369 [facility] Results Test Description Test Time Test Comments Results Result Comments Source POCT URINALYSIS W/O SPECIFIC GRAVITY 2022-11-14 14:14:00 Test Item Value Reference Range Interpretation Comme nts POCT PH U (test code = 3254) 6 mg/dl 5-8 POCT U LEUK EST (test code = 3263) Trace Negative - Negative POCT U NIT (test code = 3262) Negative Negative - Negative POCT U PROT (test code = 3259) Negative Negative - Negative POCT U GLU (test code = 3256) Normal Negative - Negative POCT U KETONE (test code = 3258) Negative Negative - Negative POCT U BLD (test code = 3257) 50 Negative - Negative [facility] SPECIFIC [id number] 14:14:00 Test Item Value Reference Range Interpretation Comments POCT PH U (test code = 3254) 6 mg/dl 5-8 POCT U LEUK EST (test code = Trace Negative - Negative 3263) POCT U NIT (test code = 3262) Negative Negative - Negative POCT U PROT (test code = 3259) Negative Negative - Negative POCT U GLU (test code = 3256) Normal Negative - Negative POCT U KETONE (test code = 3258) Negative Negative - Negative POCT U BLD (test code = 3257) 50 Negative - Negative [facility] W/O SPECIFIC [id number] 18:27:00 Test Item Value Reference Range Interpretation Comments POCT PH U (test code = 5 mg/dl 5-8 3254) POCT U LEUK EST (test negative Negative - code = 3263) Negative POCT U NIT (test code negative Negative - = 3262) Negative POCT U PROT (test code trace Negative - = 3259) Negative POCT U GLU (test code negative Negative - = 3256) Negative POCT U KETONE (test negative Negative - code = 3258) Negative POCT U BLD (test code 50 Negative - = 3257) Negative AMANDEEP (test code = AMANDEEP) accurate development and interpretation of all internal controls Lab Interpretation Abnormal (test code = 41252-7) General acute hospital URINALYSIS W/O SPECIFIC [id number] 18:27:00 Test Item Value Reference Range Interpretation Comments POCT PH U (test code = 5 mg/dl 5-8 3254) POCT U LEUK EST (test negative Negative - code = 3263) Negative POCT U NIT (test code negative Negative - = 3262) Negative POCT U PROT (test code trace Negative - = 3259) Negative POCT U GLU (test code negative Negative - = 3256) Negative POCT U KETONE (test negative Negative - code = 3258) Negative POCT U BLD (test code 50 Negative - = 3257) Negative AMANDEEP (test code = AMANDEEP) accurate development and interpretation of all internal controls Lab Interpretation Abnormal (test code = 37951-5) [facility] FOR [facility]OLUNTARY RESEARCH 2022-06-22 17:52:50 Test Item Value Reference Range Interpretation Comments Consent To Contact For Voluntary Yes Research (test code = 4947) General acute hospital [id number] 16:57:00 Test Item Value Reference Range Interpretation Comments POCT PREG (test code = 1605) Negative On board controls acceptable with Yes C Line (test code = 3574) POCT PREG LOT # (test code = 3575) [id number] POCT PREG TEST DATE (test 01/23/2022 code = 3576) General acute hospital [id number] 16:57:00 Test Item Value Reference Range Interpretation Comments POCT PREG (test code = 1605) Negative On board controls acceptable with Yes C Line (test code = 3574) POCT PREG LOT # (test code = 3575) [id number] POCT PREG TEST DATE (test 01/23/2022 code = 3576) [facility]
[2023-02-25] MEDS ORDERED: ONDANSETRON 4 MG/2 ML VIAL ONE (07:19)
[2023-02-25] MEDS ORDERED: NA CHLORIDE 0.9% 1,000 ML ONE ×2 (07:19→08:09)
[2023-02-25] MEDS ORDERED: FAMOTIDINE 20 MG/2 ML VIAL IV ONE (07:19)
[2023-02-25 07:29] LABS: Specific Gravity > 1.030 (1.005-1.030)
[2023-02-25 07:35] LABS: Hematocrit 41.3 % (36.0-45.0); Lymphocytes % 12.4 % (15.3-44.8); MCV 81.4 fL (80-100); MPV 6.8 fL (7.6-11.3); Platelets 304 thou/uL (152-406); RBC Red Blood Cell Count 5.08 M/uL (3.86-4.86)
[2023-02-25 07:46] LABS: ALT/SGPT 18 U/L (13-56); Albumin 4.1 g/dL (3.4-5.0); Alkaline Phosphatase 79 U/L (45-117); BUN Blood Urea Nitrogen 18 mg/dL (7-18); Bicarbonate 25 mEq/L (21-32); Bilirubin Total 1.3 mg/dL (0.2-1.0); Glomerular Filtration Rate 125 ml/min (=/>90); Glucose Level 95 mg/dL (74-106); Lipase 15 U/L (13-75); Potassium 3.5 mEq/L (3.5-5.1); Protein, Total 8.1 g/dL (6.4-8.2); Sodium Level 137 mEq/L (136-145)
[2023-02-25 07:47] LABS: AST/SGOT < 3 U/L (15-37); Specific Gravity > 1.030 (1.005-1.030); Transitional Epithelial <5 /HPF (None Seen); Urine Bacteria <20 /HPF (<20); Urine Bilirubin NEGATIVE (Negative); Urine Blood 1+ (Negative); Urine Clarity Extremely Turbid (Clear); Urine Color Yellow (Yellow); Urine Glucose NEGATIVE (Negative); Urine Mucus 4+ /HPF (None Seen); Urine Protein 1+ (Negative); Urine Urobilinogen 1+ (Normal)
--- NOTE | 2023-02-25 07:54 | ER ---
Nurse's Notes [facility] Name: Naun Cortes Age: 22 yrs Sex: Female : 2000 Arrival Date: 02/25/2023 Time: 06:30 Bed 13 Private MD: Diagnosis: Nausea with vomiting, unspecified;Vomiting Presentation: 02/25 06:52 Chief complaint: Patient states: Nausea, vomiting, and diarrhea that started yesterday jw7 morning around 0900, stated "my urine is dark and my lower back hurts". Coronavirus screen: At this time, the client does not indicate any symptoms associated with coronavirus-19. Ebola Screen: No symptoms or risks identified at this time. Initial Sepsis Screen: Does the patient meet any 2 criteria? No. Patient's initial sepsis screen is negative. Does the patient have a suspected source of infection? No. Patient's initial sepsis screen is negative. Risk Assessment: Do you want to hurt yourself or someone else? Patient reports no desire to harm self or others. Onset of symptoms was February 24, 2023 at 09:00. 06:52 Method Of Arrival: Ambulatory [facility] 06:52 Acuity: ELIOT 4 jw7 Triage Assessment: 06:54 General: Appears in no apparent distress. uncomfortable, Behavior is calm, cooperative. jw7 Pain: Complains of pain in low back area Pain does not radiate. Pain currently is 3 out of 10 on a pain scale. Quality of pain is described as throbbing, Pain began 2-3 days ago. Is continuous. EENT: No deficits noted. No signs and/or symptoms were reported regarding the EENT system. Neuro: Chang Agitation-Sedation Scale (RASS): 0 - Alert and Calm Level of Consciousness is awake, alert, obeys commands, Oriented to person, place, time, situation. Cardiovascular: Capillary refill < 3 seconds Clubbing of nail beds is absent JVD is absent Patient's skin is warm and dry. Respiratory: Airway is patent Trachea midline Respiratory effort is even, unlabored, Respiratory pattern is regular, symmetrical. GI: Abdomen is flat, non-distended, Reports diarrhea, intolerance of fluids, intolerance of food, nausea, vomiting. : Reports dark urine. Derm: No deficits noted. No signs and/or symptoms reported regarding the dermatologic system. Musculoskeletal: No deficits noted. No signs and/or symptoms reported regarding the musculoskeletal system. 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 Flu vaccine is not up to date. - Social history:: Smoking status: Patient denies any tobacco usage or history of. Patient/guardian denies using alcohol, street drugs, IV drugs. Screenin:57 [facility] ED Fall Risk Assessment (Adult) History of falling in the last 3 months, jw7 including since admission No falls in past 3 months (0 pts) Score/Fall Risk Level 0 - 2 = Low Risk Oriented to surroundings, Maintained a safe environment. Abuse screen: Denies threats or abuse. Denies injuries from another. Nutritional screening: No deficits noted. Tuberculosis screening: No symptoms or risk factors identified. Assessment: 07:25 General: Appears in no apparent distress. comfortable, Behavior is calm, cooperative, kc6 appropriate for age. Pain: Denies pain. Neuro: Level of Consciousness is awake, alert, obeys commands, Oriented to person, place, time, situation, Appropriate for age. Cardiovascular: Capillary refill < 3 seconds. Respiratory: Airway is patent Trachea midline Respiratory effort is even, unlabored, Respiratory pattern is regular, symmetrical. GI: Abdomen is flat, non-distended, Bowel sounds present X 4 quads. Abd is soft and non tender X 4 quads. Reports diarrhea, nausea, vomiting, Patient currently denies abdominal pain. : No signs and/or symptoms were reported regarding the genitourinary system. Urine is clear. EENT: No signs and/or symptoms were reported regarding the EENT system. Derm: No signs and/or symptoms reported regarding the dermatologic system. Skin is intact, is healthy with good turgor, Skin is pink, warm \\T\\ dry. Musculoskeletal: No signs and/or symptoms reported regarding the musculoskeletal system. Circulation, motion, and sensation intact. Capillary refill < 3 seconds, Range of motion: intact in all extremities. Vital Signs: 06:52 BP 122 / 75; Pulse 120; Resp 19 S; Temp 98.4(O); Pulse Ox 99% on R/A; Weight 62.6 kg; jw7 Height 5 ft. 3 in. ; Pain 3/10; 07:25 BP 112 / 81; Pulse 90; Resp 18 S; Pulse Ox 99% on R/A; kc6 06:52 Body Mass Index 24.45 (62.60 kg, 160.02 cm) jw7 06:52 Pain Scale: Adult [facility] ED Course: 06:33 Patient arrived in ED. kj1 06:39 Kimani Luevano DO is Attending Physician. ms3 06:50 Attending Physician role handed off by Kimani Luevano DO ms3 06:50 Alfa Herrmann MD is Attending Physician. ms3 06:54 Triage completed. jw7 06:54 Arm band placed on. jw7 06:57 Patient has correct armband on for positive identification. Bed in low position. Call [facility] light in reach. 07:03 Aide Barillas, RN is Primary Nurse. kc6 07:24 CBC with Diff Sent. kc6 07:24 CMP Sent. kc6 07:24 Lipase Sent. kc6 07:24 Test, Urine Sent. kc6 07:24 Urinalysis w/ reflexes Sent. kc6 07:24 Inserted saline lock: 20 gauge in right antecubital area, using aseptic technique. kc6 Blood collected. Patient maintains SpO2 saturation greater than 95% on room air. 08:34 No provider procedures requiring assistance completed. IV discontinued, intact, kc6 bleeding controlled, No redness/swelling at site. Pressure dressing applied. Administered Medications: 07:24 Drug: NS 0.9% IV 1000 ml IV at 1 bolus Per protocol; 1000 mL bolus Route: IV; Rate: 1 kc6 bolus; Site: right antecubital; 07:58 Follow up: Response: No adverse reaction; IV Status: Completed infusion; IV Intake: kc6 1000ml 07:24 Drug: Famotidine IVP 20 mg IVP once; dilute with 10 mL 0.9% NaCl; give over 2 minutes kc6 Route: IVP; Site: right antecubital; 07:58 Follow up: Response: No adverse reaction kc6 07:24 Drug: Ondansetron IVP 4 mg IVP once; over 2 minutes Route: IVP; Site: right antecubital;kc6 07:58 Follow up: Response: No adverse reaction; Nausea is decreased; Vomiting decreased kc6 07:58 Drug: NS 0.9% IV 1000 ml IV at 1 bolus Per protocol; 1000 mL bolus Route: IV; Rate: 1 kc6 bolus; Site: right antecubital; 08:34 Follow up: Response: No adverse reaction; IV Status: Completed infusion; IV Intake: kc6 1000ml Medication: 08:34 VIS not applicable for this client. kc6 Intake: 07:58 IV: 1000ml; Total: 1000ml. kc6 08:34 IV: 1000ml; Total: 2000ml. kc6 Outcome: 07:53 Discharge ordered by . angelito 08:34 Discharged to home ambulatory, kc6 08:34 Condition: good 08:34 Discharge instructions given to patient, Instructed on discharge instructions, follow up and referral plans. medication usage, Demonstrated understanding of instructions, follow-up care, medications, Prescriptions given X 1, 08:34 Patient left the ED. kc6 Signatures: Alfa Herrmann MD MD cha Jackson, Kandis kj1 Kimani Luevano DO DO ms3 Tequila Nelson, RN RN jw7 Aide Barillas, JOSE DANIEL RN kc6 Corrections: (The following items were deleted from the chart) 06:55 06:54 PSHx: None; vj jw7
--- NOTE | 2023-02-25 07:54 | EDPHYS ---
Physician Documentation [facility] Name: Naun Cortes Age: 22 yrs Sex: Female : 2000 Arrival Date: 02/25/2023 Time: 06:30 Bed 13 Private MD: ED Physician Alfa Herrmann HPI: 02/25 06:48 This 22 yrs old Female presents to ER via Unassigned with complaints of ms3 Nausea/Vomiting. 06:48 22-year-old female with no past medical history presents to the emergency department ms3 for vomiting that began at 9 AM yesterday. Patient states her discomfort is a 3/10 located in her back. Patient denies alleviating or inciting factors. Patient states she has not taken medication for her symptoms.. 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 Flu vaccine is not up to date. - Social history:: Smoking status: Patient denies any tobacco usage or history of. Patient/guardian denies using alcohol, street drugs, IV drugs. ROS: 06:48 Constitutional: Negative for fever, and chills. Neck: Negative for injury, pain, and ms3 swelling, Cardiovascular: Negative for chest pain, and palpitations. Respiratory: Negative for shortness of breath, cough, wheezing, and pleuritic chest pain, 06:48 MS/Extremity: Negative for injury and deformity, Skin: Negative for injury, rash, and discoloration, 06:48 Abdomen/GI: Positive for nausea, vomiting, and diarrhea, 06:48 All other systems are negative, Exam: 06:48 Constitutional: This is a well developed, well nourished patient who is awake, alert, ms3 and in no acute distress. Head/Face: Normocephalic, atraumatic. Neck: Trachea midline, no cervical lymphadenopathy. Supple, full range of motion without nuchal rigidity, or vertebral point tenderness. No Meningismus. Chest/axilla: Normal chest wall appearance and motion. Nontender with no deformity. Cardiovascular: Regular rate and rhythm with a normal S1 and S2. No gallops, murmurs, or rubs. Normal PMI, no JVD. No pulse deficits. Respiratory: Lungs have equal breath sounds bilaterally, clear to auscultation and percussion. No rales, rhonchi or wheezes noted. No increased work of breathing, no retractions or nasal flaring. Abdomen/GI: Soft, non-tender, with normal bowel sounds. No distension or tympany. No guarding or rebound. No evidence of tenderness throughout. Skin: Warm, dry with normal turgor. Normal color with no rashes, no lesions, and no evidence of cellulitis. MS/ Extremity: Pulses equal, no cyanosis. Neurovascular intact. Full, normal range of motion. Vital Signs: 06:52 BP 122 / 75; Pulse 120; Resp 19 S; Temp 98.4(O); Pulse Ox 99% on R/A; Weight 62.6 kg; jw7 Height 5 ft. 3 in. ; Pain 3/10; 07:25 BP 112 / 81; Pulse 90; Resp 18 S; Pulse Ox 99% on R/A; kc6 06:52 Body Mass Index 24.45 (62.60 kg, 160.02 cm) jw7 06:52 Pain Scale: Adult jw7 MDM: 06:48 Patient medically screened. ms3 06:48 Differential diagnosis: Nonspecific abd pain, gastritis, pancreatitis, viral ms3 gastroenteritis, gastroenteritis. Transition of care: After a detail discussion of the patient's case, care is transferred to Alfa Herrmann MD. 07:51 Data reviewed: vital signs, nurses notes, lab test result(s), CBC, electrolytes, angelito hepatic panel. Consideration of Admission/Observation Escalation of care including admission/observation considered. I considered the following discharge prescriptions or medication management in the emergency department Medications were administered in the Emergency Department. See MAR. Test considered but Not performed: X-ray: no ct, x ray. Care significantly affected by the following chronic conditions: anxiety, bipolar do. Counseling: I had a detailed discussion with the patient and/or guardian regarding the historical points, exam findings, and any diagnostic results supporting the discharge/admit diagnosis, lab results, the need for outpatient follow up, for definitive care, a family practitioner. 02/25 06:48 Order name: CBC with Diff; Complete Time: 07:50 ms3 02/25 06:48 Order name: CMP; Complete Time: 07:50 ms3 02/25 06:48 Order name: Lipase; Complete Time: 07:50 ms3 02/25 06:48 Order name: Test, Urine; Complete Time: 07:50 ms3 02/25 06:48 Order name: Urinalysis w/ reflexes; Complete Time: 07:50 ms3 02/25 06:48 Order name: IV Saline Lock; Complete Time: 07:23 ms3 02/25 06:48 Order name: Labs collected and sent; Complete Time: 07:23 ms3 02/25 07:51 Order name: Misc. Order: dc after 2 liters; Complete Time: 07:54 angelito Administered Medications: 07:24 Drug: NS 0.9% IV 1000 ml IV at 1 bolus Per protocol; 1000 mL bolus Route: IV; Rate: 1 kc6 bolus; Site: right antecubital; 07:58 Follow up: Response: No adverse reaction; IV Status: Completed infusion; IV Intake: kc6 1000ml 07:24 Drug: Famotidine IVP 20 mg IVP once; dilute with 10 mL 0.9% NaCl; give over 2 minutes kc6 Route: IVP; Site: right antecubital; 07:58 Follow up: Response: No adverse reaction kc6 07:24 Drug: Ondansetron IVP 4 mg IVP once; over 2 minutes Route: IVP; Site: right antecubital;kc6 07:58 Follow up: Response: No adverse reaction; Nausea is decreased; Vomiting decreased kc6 07:58 Drug: NS 0.9% IV 1000 ml IV at 1 bolus Per protocol; 1000 mL bolus Route: IV; Rate: 1 kc6 bolus; Site: right antecubital; 08:34 Follow up: Response: No adverse reaction; IV Status: Completed infusion; IV Intake: kc6 1000ml Disposition Summary: 02/25/23 07:53 Discharge Ordered Notes: Location: Home angelito Problem: new angelito Symptoms: have improved angelito Condition: Stable angelito Diagnosis - Nausea with vomiting, unspecified angelito - Vomiting angelito Followup: angelito - With: Private Physician - When: 2 - 3 days - Reason: Recheck today's complaints, Continuance of care, Re-evaluation by your physician Discharge Instructions: - Discharge Summary Sheet angelito - Nausea and Vomiting, Adult angelito - Nausea, Adult angelito - Nausea and Vomiting, Adult, [id number] [facility] Forms: - Medication Reconciliation Form angelito - Thank You Letter angelito - Antibiotic Education angelito - Prescription Opioid Use angelito - Patient Portal Instructions angelito - Leadership Thank You Letter angelito - Work release form eb Prescriptions: - ondansetron 4 mg Oral Tablet,disintegrating - take 1 tablet ORAL route every 6-8 hours for 5 days; 20 tablet; Refills: 0, angelito Product Selection Permitted Signatures: Dispatcher [employer] EDAlfa Pappas MD MD cha Sims, Marcus, DO DO ms3 Tequila Nelson RN RN jw7 Aide Barillas RN RN kc6 Corrections: (The following items were deleted from the chart) 06:55 06:54 PSHx: None; vj jw7
[2023-02-25 09:29] VITALS: TEMP 98.4; O2SAT 99
[2023-02-25 09:30] VITALS: BP 112/81
== END 2023-02-25 08:34 | disposition home or self-care (01) ==
LOC: ER 06:30
DX: R11.10 Vomiting, unspecified (principal)
CPT/HCPCS: 36415; 80053; 81001; 81025; 83690; 85025; 96361; 96374; 96375; 99285; J2405; J7030